=== PATIENT | male | born 1935 | race Caucasian/White ===

== ENCOUNTER 2022-08-11 10:41 | Outpatient (CLI) | payer MEDICARE, SELFPAY ==
--- NOTE | 2022-08-11 11:10 | XR_ITS ---
WS: [id number] EXAMINATION: XR knee RT 1-2V 05299 REASON FOR EXAM: PAIN IN R KNEE/UNSPECIFIED OSTEOARTHRITIS COMPARISON: None available. ORDER DATE: 08/11/2022 11:15 AM FINDINGS: There is no sign of any acute osseous or articular abnormality. There is a prominent anterior margina l osteophyte mid anterior tibial plateau. A small suprapatellar joint effusion is indicated. Cannot e xclude posterior effusion. There are no specific soft tissue abnormalities. XR/XR knee RT 1-2V [id number] IMPRESSION: Osteoarthritic changes noted with effusion.
== END 2022-08-11 10:42 | disposition home or self-care (01) ==
PROVIDERS: PCP Nurse Practitioner Family; Visit Provider Nurse Practitioner Family
DX: M25.561 Pain in right knee (principal); M17.11 Unilateral primary osteoarthritis, right knee; M25.461 Effusion, right knee
CPT/HCPCS: 73560

== ENCOUNTER 2023-11-02 21:26 | Inpatient (IN) | payer MEDICARE, SELFPAY ==
[2023-11-02 21:44] VITALS: BP 164/88; PULSE 85; RESP 18; TEMP 37.3; O2SAT 95; BMI 33.3
--- NOTE | 2023-11-02 21:55 | XRR_ITS ---
PROCEDURE INFORMATION: Exam: XR Chest Exam date and time: 11/02/2023 9:59 PM Age: 88 years old Clinical indication: Shortness of breath; Additional info: Weakness TECHNIQUE: Imaging protocol: Radiologic exam of the chest. Views: 1 view. COMPARISON: No relevant prior studies available. FINDINGS: Lungs: Lungs are hypoaerated. There is some asymmetry with coarsening of interstitial markings at left lung base not further characterized without comparison imaging available. Pleural spaces: Unremarkable. No pleural effusion. No pneumothorax. Heart/Mediastinum: Unremarkable. No cardiomegaly. Bones/joints: Unremarkable. XR/XR chest 1V portable [id number] IMPRESSION: There is some asymmetry in interstitial lung markings at the left lung base of uncertain significance without comparison imaging available. This could represent underlying chronic interstitial fibrosis but cannot exclude acute process. Recommend radiographic follow-up. PA and lateral chest radiographs with improved inspiratory effort for could be helpful.
--- NOTE | 2023-11-02 21:56 | ECG_ITS ---
[facility] Test Date: 2023-11-02 Pat Name: Bobby Way Department: Room: Gender: Male Hospital Staff Pharmacist: : [id number] Requested By: Chay Vega Order Number: [id number] Chase MD: Agustin Byrnes M.D. Measurements Intervals [place] Rate: 88 P: 33 MO: 220 QRS: -14 QRSD: 83 T: 55 QT: 350 QTc: 425 Interpretive Statements SINUS RHYTHM WITH FIRST DEGREE AV BLOCK POSSIBLE RIGHT VENTRICULAR CONDUCTION DELAY [RSR (QR) IN V1/V2] POSSIBLE ANTERIOR MYOCARDIAL INFARCTION , PROBABLY OLD [30 ms Q WAVE IN V3/V4, OR R < 0.2 mV IN V4] No previous ECG available for comparison Electronically Signed On 11-03-2023 10:07:06 [employer] by Agustin Byrnes M.D. [id number]
[2023-11-02 22:19] LABS: Basophils # 0.1 10^3/uL (0.0-0.1); Basophils % 0.5 %; Eosinophils # 0.5 10^3/uL (0.0-0.8); Eosinophils % 4.4 %; Hematocrit 48.4 % (37-53); Lymphocytes # 3.1 10^3/uL (0.8-4.8); Lymphocytes % 29.5 %; Mean Corpuscular HGB Conc 32.4 g/dL (30-55); Mean Corpuscular Hemoglobin 30.5 pg (27-33); Mean Corpuscular Volume 94.2 fl (82-101); Mean Platelet Volume 10.2 fL (7.4-10.4); Monocytes % 9.5 %; Neutrophils # 5.87 10^3/uL (1.8-7.7); Neutrophils % 55.7 %; Nucleated Red Blood Cells % 0 %; Platelet Count 295 10^3/cmm (157-399); Red Blood Count 5.14 10^6/uL (3.85-5.65); Red Cell Distribution Width 13.8 % (12.1-15.1); White Blood Count 10.52 10^3/uL (3.29-11.43)
--- NOTE | 2023-11-02 22:20 | W.ED.WEAKNES ---
HPI - Weakness General: Chief complaint: Weakness Stated complaint: weakness,fever Time Seen by Provider: 11/02/23 21:55 History of Present Illness: Patient presents to the ER with complaints of being weakness and just not feeling good. Patient says he is only had this for about 2 days. But upon talking to the family he is been progressively going downhill over the last several months to the point that he is fallen multiple times. 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 Patient's only medicine is a thyroid medicine and a pill to help and stop eating as much. The last time the patient was sick was decades ago when he had pneumonia. Patient denies any pain currently other than just not feeling good overall. He will not specify how he does not feel good. Review of Systems General: Reports: 10 or more systems reviewed and unremarkable except in HPI and below Physical Exam Const: COMMON NORMALS: no acute distress, average body habitus, patient oriented x3, no limitations, healthy appearing, alert and well nourished HENMT: COMMON NORMALS: normocephalic, atraumatic, hearing grossly normal bilaterally, external ears normal, EAC's normal, Normal external nose present, moist oral mucous membranes and oropharynx normal HEAD & SCALP: normocephalic and atraumatic NOSE: Normal external nose present EXTERNAL EAR: Yes external ears normal EXTERNAL AUDITORY CANAL: EAC's normal Eye: COMMON NORMALS: Equal, round and reactive pupils present, EOMs intact bilaterally, conjunctivae normal and no scleral icterus CONJUNCTIVA: Yes conjunctivae normal PUPIL: Yes Equal, round and reactive pupils present Neck/C-Spine: COMMON NORMALS: full ROM, no lymphadenopathy, supple, no meningeal signs and no JVD Chest: COMMONS NORMALS: normal inspection of the chest and normal palpation of entire chest wall Resp: COMMON NORMALS: normal respiratory effort, No retractions, No use of accessory muscles and clear to auscultation bilaterally AUSCULTATION: clear to auscultation bilaterally Cardio: COMMON NORMALS: no JVD, regular rate, regular rhythm, S1 normal heart sound present, S2 normal heart sound present, No gallops present (Cardio), No clicks present (Cardio), No murmurs present (Cardio) and No rub (Cardio) RATE: regular rate RHYTHM: regular rhythm HEART SOUNDS: S1 normal heart sound present and S2 normal heart sound present GI: COMMON NORMALS: Normal to inspection, nondistended, normoactive bowel sounds present, Soft to palpation, non-tender, No hepatosplenomegaly present and no masses PALPATION: Yes Soft to palpation and Yes No hepatosplenomegaly present Neuro: COMMON NORMALS: patient oriented x3 SENSORIUM/ORIENTATION: Yes alert MENINGEAL SIGNS: Yes no meningeal signs Course Vital Signs: Vital signs: Vital Signs Temperature 98.2 F 11/03/23 01:28 Pulse Rate 87 11/02/23 23:54 Respiratory Rate 18 11/02/23 21:44 Blood Pressure 143/63 11/03/23 01:06 Pulse Oximetry 95 11/02/23 23:54 Oxygen Delivery Me thod Room Air 11/02/23 21:44 MDM - Weakness Medical Decision Making Patient had lab workup included blood and urine influenza COVID swabs chest x-ray and CT of the abdomen pelvis and chest. EKGs and serial troponins. All of this was essentially negative there was some asymmetry within markings of the chest x-ray sweats when we get the chest abdomen pelvis. During his CT scan he kept moving his legs and would not be able to lay still so we gave him 1 mg Ativan which caused him to be delirious continue to crawl out of bed, keeps telling the and staff that he wants to take a pair scissors to cut her close off, and tries to hook them up to his IV. Patient was then given 5 mg of Haldol which calmed him down a little bit. Patient required a sitter. This patient was discussed with Dr. Cavazos who agreed to place the patient in observation secondary to adverse reaction to medicine. Differential Diagnosis Unlikely acute myocardial infarction, anemia, hypoglycemia, hypothyroidism, rhabdomyolysis, sepsis or dehydration Medical Records I reviewed the patient's medical records. Lab Data I reviewed the patient's lab results. 11/02/23 22:08 11/02/23 22:08 Radiology Impressions Chest X-Ray 11/02/23 21:55 IMPRESSION: There is some asymmetry in interstitial lung markings at the left lung base of uncertain significance without comparison imaging available. This could represent underlying chronic interstitial fibrosis but cannot exclude acute process. Recommend radiographic follow-up. PA and lateral chest radiographs with improved inspiratory effort for could be helpful. Chest/Abdomen/Pelvis CT 11/02/23 23:08 IMPRESSION: 1. Fibrotic interstitial pulmonary changes. 2. No definite focal pneumonia seen. IMPRESSION: Negative for acute abdominopelvic pathology. Laboratory Results WBC 10.52 10^3/uL (3.29-11.43) 11/02/23 22:08 RBC 5.14 10^6/uL (3.85-5.65) 11/02/23 22:08 Hgb 15.70 g/dL (11.27-16.99) 11/02/23 22:08 Hct 48.4 % (37-53) 11/02/23 22:08 MCV 94.2 fl (82-101) 11/02/23 22:08 MCH 30.5 pg (27-33) 11/02/23 22:08 MCHC 32.4 g/dL (30-55) 11/02/23 22:08 RDW 13.8 % (12.1-15.1) 11/02/23 22:08 Plt Count 295 10^3/cmm (157-399) 11/02/23 22:08 MPV 10.2 fL (7.4-10.4) 11/02/23 22:08 Neut % (Auto) 55.7 % 11/02/23 22:08 Lymph % (Auto) 29.5 % 11/02/23 22:08 [place] % (Auto) 9.5 % 11/02/23 22:08 Eos % (Auto) 4.4 % 11/02/23 22:08 Baso % (Auto) 0.5 % 11/02/23 22:08 Neut # (Auto) 5.87 10^3/uL (1.8-7.7) 11/02/23 22:08 Lymph # (Auto) 3.1 10^3/uL (0.8-4.8) 11/02/23 22:08 [place] # (Auto) 1.0 10^3/uL (0.2-0.9) H 11/02/23 22:08 Eos # (Auto) 0.5 10^3/uL (0.0-0.8) 11/02/23 22:08 Baso # (Auto) 0.1 10^3/uL (0.0-0.1) 11/02/23 22:08 Nucleated RBC % (auto) 0 % 11/02/23 22:08 Nucleated RBCs # 0.0 /100WBC 11/02/23 22:08 Sodium 137 mmol/L (136-145) 11/02/23 22:08 Potassium 4.6 mmol/L (3.5-5.1) 11/02/23 22:08 Chloride 100 mmol/L (98-107) 11/02/23 22:08 Carbon Dioxide 25 mmol/L (22-29) 11/02/23 22:08 Anion Gap 16.6 (5-19) 11/02/23 22:08 BUN 10 mg/dL (8-23) 11/02/23 22:08 Creatinine 0.8 mg/dL (0.7-1.2) 11/02/23 22:08 GFR Calculation Not Reportable 11/02/23 22:08 Glucose 104 mg/dL (65-115) 11/02/23 22:08 Calculated Osmolality 283 mOsm/kg (285-295) L 11/02/23 22:08 Calcium 9.1 mg/dL (8.5-10.5) 11/02/23 22:08 Magnesium 1.9 mg/dL (1.7-2.3) 11/02/23 22:08 Total Bilirubin 0.5 mg/dL (0.15-1.2) 11/02/23 22:08 AST 19 U/L (0-40) 11/02/23 22:08 ALT 12 U/L (0-41) 11/02/23 22:08 Alkaline Phosphatase 109 U/L (40-130) 11/02/23 22:08 Troponin T Baseline 20 ng/L (0-15) H 11/02/23 22:08 Troponin T 120 Minute 18.48 ng/L (0-15) H 11/02/23 00:35 Delta Troponin T 1.52 ABS# (0-10) 11/02/23 00:35 Total Protein 7.5 g/dL (6.6-8.7) 11/02/23 22:08 Albumin 4.2 g/dL (3.5-5.2) 11/02/23 22:08 Globulin 3.3 g/dL (1.3-4.6) 11/02/23 22:08 TSH 1.70 uIU/mL (0.27-4.20) 11/02/23 22:07 Urine Color Yellow (Yellow) 11/02/23 22:30 Urine Appearance Clear (CLEAR) 11/02/23 22:30 Urine pH 5 (5-7) 11/02/23 22:30 Ur Specific [place] 1.015 (1.005-1.030) 11/02/23 22:30 Urine Protein Neg (Negative) 11/02/23 22:30 Urine Glucose (UA) Norm (Normal) 11/02/23 22:30 Urine Ketones Negative (Negative) 11/02/23 22:30 Urine Blood 2+ (Negative) H 11/02/23 22:30 Urine Nitrate Negative (Negative) 11/02/23 22:30 Urine Bilirubin 1+ (Negative) H 11/02/23 22:30 Urine Urobilinogen Norm mg/dL (Negative) 11/02/23 22:30 Ur Leukocyte Esterase Negative (Negative) 11/02/23 22:30 Urine RBC 5-10 /hpf (0-2) H 11/02/23 22:30 Urine WBC 0-4 /hpf (0-5) H 11/02/23 22:30 Ur Squamous Epith Cells 0-4 /hpf (0-5) H 11/02/23 22:30 Amorphous Sediment Not Reportable 11/02/23 22:30 Urine Bacteria Trace /hpf (NONE) 11/02/23 22:30 Urine Mucus Trace /hpf 11/02/23 22:30 Influenza Type A Ag negative (Negative) 11/03/23 00:45 Influenza Type B Ag negative (Negative) 11/03/23 00:45 SARS-CoV-2 Ag (Rapid) negative (Negative) 11/03/23 00:45 All radiology interpretation(s) finalized by discharge EKG Data EKG 1: I personally reviewed and interpreted this EKG as follows: EKG interpretation date: 11/02/23 EKG interpretation time: :24 Prior EKG tracings: not available for review Interpretation: Ventricular rate 88 bpm, [place] interval 220, QRS duration 83, QTc of 396, first-degree AV block with sinus rhythm EKG 2: I personally reviewed and interpreted this EKG as follows: EKG interpretation date: 11/03/23 EKG interpretation time: 00:58 Prior EKG tracings: available for review Interpretation: Ventricular rate 93 bpm, [place] interval 210, QRS duration 102, QTc of 383, sinus rhythm with first-degree AV block Discharge Plan Discharge Patient Disposition: Placed in Observation Clinical Impression: Generalized weakness Medication adverse effect Qualifiers: Encounter type: initial encounter Qualified Code(s): T50.905A - Adverse effect of unspecified drugs, medicaments and biological substances, initial encounter Coding Level of Care Code ED Meat Team Lead for Adrianna Baird
[2023-11-02 22:35] LABS: Troponin(5th) Baseline 20 ng/L (0-15)
[2023-11-02 22:39] LABS: Alanine Aminotransferase 12 U/L (0-41); Albumin Level 4.2 g/dL (3.5-5.2); Alkaline Phosphatase 109 U/L (40-130); Anion Gap 16.6 (5-19); Aspartate Amino Transferase 19 U/L (0-40); Blood Urea Nitrogen 10 mg/dL (8-23); Calcium 9.1 mg/dL (8.5-10.5); Carbon Dioxide 25 mmol/L (22-29); Chloride 100 mmol/L (98-107); Creatinine Clr Calc Pharmacy 71.9688; Globulin 3.3 g/dL (1.3-4.6); Glucose 104 mg/dL (65-115); Magnesium 1.9 mg/dL (1.7-2.3); Osmolality Calculated 283 mOsm/kg (285-295); Potassium 4.6 mmol/L (3.5-5.1); Sodium 137 mmol/L (136-145); Total Bilirubin 0.5 mg/dL (0.15-1.2); Total Protein 7.5 g/dL (6.6-8.7)
[2023-11-02 22:50] LABS: Add Urine Microscopic? YES; Bacteria Urine TRACE /hpf; Bilirubin Urine 1+ (Negative); Blood Urine 2+ (Negative); Glucose Urine UA Norm (Normal); Ketones Urine Negative (Negative); Leukocyte Esterase Urine Negative (Negative); Mucus Urine TRACE /hpf; Nitrate Urine Negative (Negative); Protein Urine Neg (Negative); Specific Gravity, Urine 1.015 (1.005-1.030); Squamous Epithelial Cell Urine 0-4 /hpf (0-5); Urine Appearance Clear (CLEAR); Urine Color Yellow (Yellow); Urobilinogen Urine Norm (Negative); WBC Urine 0-4 /hpf (0-5); pH Urine 5 (5-7)
--- NOTE | 2023-11-02 23:08 | CTR_ITS ---
PROCEDURE INFORMATION: Exam: CT Chest With Contrast; Diagnostic Exam date and time: 11/02/2023 11:47 PM Age: 88 years old Clinical indication: Other: Weak; Additional info: Weakness fever abnormal cxr TECHNIQUE: Imaging protocol: Diagnostic computed tomography of the chest with contrast. Radiation optimization: All CT scans at this facility use at least one of these dose optimization techniques: automated exposure control; mA and/or kV adjustment per patient size (includes targeted exams where dose is matched to clinical indication); or iterative reconstruction. Contrast material: OMNI 350; Contrast volume: 100 ml; Contrast route: INTRAVENOUS (IV); COMPARISON: CR (CHEST, ) 11/02/2023 9:59 PM RADIATION DOSE METRICS: Total DLP (mGy-cm): 1673 FINDINGS: Lungs: Diffuse reticular changes of the pulmonary interstitium. Reduced lung volumes. Peripheral honeycombing in costophrenic sulci. No definite acute consolidation. Negative for endobronchial obstruction. Pleural spaces: Unremarkable. No pneumothorax. No pleural effusion. Heart: Unremarkable. No cardiomegaly. No pericardial effusion. Lymph nodes: Unremarkable. No enlarged lymph nodes. Vasculature: Unremarkable. No aortic aneurysm. Bones/joints: Unremarkable. No acute fracture. Soft tissues: Unremarkable. PROCEDURE INFORMATION: Exam: CT Abdomen And Pelvis With Contrast Exam date and time: 11/02/2023 11:47 PM Age: 88 years old Clinical indication: Other: Weak; Additional info: Weakness fever abnormal cxr TECHNIQUE: Imaging protocol: Computed tomography of the abdomen and pelvis with contrast. Radiation optimization: All CT scans at this facility use at least one of these dose optimization techniques: automated exposure control; mA and/or kV adjustment per patient size (includes targeted exams where dose is matched to clinical indication); or iterative reconstruction. Contrast material: OMNI 350; Contrast volume: 100 ml; Contrast route: INTRAVENOUS (IV); COMPARISON: CR (CHEST, ) 11/02/2023 9:59 PM RADIATION DOSE METRICS: Total DLP (mGy-cm): 1673 FINDINGS: Liver: Normal. No mass. Gallbladder and bile ducts: Normal. No calcified stones. No ductal dilation. Pancreas: Normal. No ductal dilation. Spleen: Normal. No splenomegaly. Adrenal glands: Normal. No mass. Kidneys and ureters: Normal. No hydronephrosis. Stomach and bowel: Unremarkable. No obstruction. No mucosal thickening. Appendix: Normal appendix. Intraperitoneal space: Unremarkable. No free air. No significant fluid collection. Vasculature: Unremarkable. No abdominal aortic aneurysm. Lymph nodes: Unremarkable. No enlarged lymph nodes. Urinary bladder: Unremarkable as visualized. Reproductive: Unremarkable as visualized. Bones/joints: Bilateral L4 pars defects. Grade 1 L4-L5 spondylolisthesis. Negative for acute fracture. Soft tissues: Unremarkable. CT/CT chest abdpel w/*[id number] IMPRESSION: 1. Fibrotic interstitial pulmonary changes. 2. No definite focal pneumonia seen. IMPRESSION: Negative for acute abdominopelvic pathology.
[2023-11-02] MEDS: LORazepam 2 mg/mL INJ 10 mL MDV 1 MG IVP (23:31)
[2023-11-02 23:54] VITALS: BP 133/88; PULSE 87; O2SAT 95
[2023-11-02] MEDS: iohexol 350 mg/mL 500 mL Btl (per mL) IV (23:57)
[2023-11-03 01:05] LABS: Troponin 5 2HR 18.48 ng/L (0-15)
[2023-11-03 01:06] VITALS: BP 143/63
[2023-11-03 01:13] LABS: Influenza A by IFA negative (Negative); Influenza B by IFA negative (Negative); SARS Covid-2 Antigen negative (Negative)
[2023-11-03 01:15] LABS: Troponin 5 2HR Delta 1.52 ABS# (0-10)
[2023-11-03 01:28] VITALS: TEMP 36.8
[2023-11-03] MEDS: haloperidol inj 5 mg/mL INJ 1 mL IVP (01:34)
[2023-11-03 02:54] VITALS: BP 115/80; PULSE 78; RESP 18; O2SAT 93
--- NOTE | 2023-11-03 02:54 | P.HP_ITS ---
Providers/Chief Complaint 2 Admitting Physician: Herson Cavazos Primary Care Provider: Nicole Prabhakar NP Chief Complaint: weakness,fever History of Present Illness Bobby Way is a 88 year old male With history of hypothyroidism, BPH, came into ER initially due to not feeling well, generalized weakness of 2 days duration, will reportedly without additional specific symptoms. He was afebrile, minimally hypertensive, without leukocytosis, with essentially unremarkable CBC and CMP, minimal abnormality of baseline troponin 20, normal TSH, 5-10 RBC in urine, otherwise UA not suggestive of UTI, negative rapid influenza and COVID screen panels. On chest x-ray there was some finding of asymmetry of interstitial lung markings at left lung base. Chest CT was going to be obtained although he could not tolerate it well, was given 1 mg of Ativan. After Ativan, however, with confusion, bizarre behavior and statements, asking for scissors to cut off his 's clothes. Chest CT with some fibrotic interstitial pulmonary changes, the rest of CT chest abdomen pelvis unremarkable. He was given Haldol, request made for observation in the hospital due to acute encephalopathy. He is currently resting. Review of Systems 2 General: Reports: ROS unobtainable due to mental status Medications/Allergies Allergies Allergy/AdvReac Type Severity Reaction Status Date / Time meperidine [From Demerol] Allergy ADR-Shakine Verified 11/02/23 21:51 ss PFSH Acute 2 PFSH: Medical History Hypothyroidism BPH (benign prostatic hyperplasia) Vitals/I&O/Wt Last Vital Signs Temp 98.2 F 11/03/23 01:28 Pulse 87 11/02/23 23:54 Resp 18 11/02/23 21:44 BP 143/63 11/03/23 01:06 Pulse Ox 95 11/02/23 23:54 O2 Del Method Room Air 11/03/23 02:17 Weight last 48 hrs Weight 96.026 kg Weight 96.388 kg Physical Exam 2 Const: COMMON NORMALS: negative for alert GENERAL APPEARANCE: not cooperative ORIENTATION/CONSCIOUSNESS: not awake HENMT: COMMON NORMALS: oropharynx normal Eye: OTHER: Pupils equal Neck/C-Spine: COMMON NORMALS: no JVD Resp: COMMON NORMALS: normal respiratory effort and clear to auscultation bilaterally AUSCULTATION: clear to auscultation bilaterally Cardio: COMMON NORMALS: no JVD, regular rhythm, S1 normal heart sound present, S2 normal heart sound present and No murmurs present (Cardio) RHYTHM: regular rhythm HEART SOUNDS: S1 normal heart sound present and S2 normal heart sound present GI: COMMON NORMALS: Normal to inspection, nondistended, normoactive bowel sounds present, Soft to palpation and non-tender PALPATION: Yes Soft to palpation Extremity: COMMON NORMALS: no joint enlargement and no pedal edema OTHER: No rigidity. Neuro: COMMON NORMALS: patient oriented x3 and moves all extremities S ENSORIUM/ORIENTATION: Yes alert Skin: COMMON NORMALS: no rashes or lesions noted GENERAL SKIN EXAM: no rashes or lesions noted Data 11/02/23 22:08 11/02/23 22:08 A&P Assessment and plan (1) Acute encephalopathy: Acute encephalopathy with delirium, bizarre ideation and behavior after receiving Ativan. Reviewed vitals, CBC, CMP, TSH, UA, rapid influenza, rapid COVID, EKG, CT chest abdomen pelvis, chest x-ray, ER note, discussed with ER provider. One-to-one sitter has been requested, he received a dose of Haldol. He is currently resting, unable to provide history, history had to be obtained from ER staff. Family has left. Monitor for Ativan to wear off, reorient, otherwise there is no suggestion of acute infectious process, not likely additional contribution from home medications, at home he is on levothyroxine and Flomax. (2) Medication adverse effect: Acute encephalopathy, possibly toxic after receiving Ativan. Qualifiers: Encounter type: initial encounter Qualified Code(s): T50.905A - Adverse effect of unspecified drugs, medicaments and biological substances, initial encounter (3) Generalized weakness: Originally came in due to generalized weakness, chest x-ray showed some asymmetric interstitial lung markings at left lung base, uncertain significance, possible chronic superficial fibrosis. CT chest was attempted but she developed acute encephalopathy after receiving Ativan after initially not tolerating the study, is found to have fibrotic and social pulmonary changes, possibly as possible for his fatigue, malaise, will benefit from follow-up with PFT, pulmonology. No other definite acute abnormality. Workup as above otherwise not suggestive of acute infection, he is afebrile, no leukocytosis, rapid influenza conducted COVID-19 were negative. Plan Hypothyroidism: Normally on levothyroxine. Continue. BPH: Normally on tamsulosin. Continue. Requesting to confirm home medications, please reconcile once available. Attestations 2 Medical Necessity Statement*: Place in observation for additional assessment and management of acute encephalopathy with delirium in an elderly gentleman. Diagnoses Acute encephalopathy G93.40 Medication adverse effect T50.905A Encounter type: initial encounter Generalized weakness R53.1
--- NOTE | 2023-11-03 02:57 | PC.NURSE ---
Unable to complete admission assessment or med rec. Patient AMS.
--- NOTE | 2023-11-03 03:56 | ECG_ITS ---
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 Measurements Intervals [place] Rate: 93 P: 54 ID: [id number] QRS: -44 QRSD: 102 T: 62 QT: 332 QTc: 414 Interpretive Statements SINUS RHYTHM WITH FIRST DEGREE AV BLOCK LEFT AXIS DEVIATION [QRS AXIS < -30] LOW QRS VOLTAGE IN PRECORDIAL LEADS [QRS DEFLECTION < 1.0 mV IN CHEST LEADS] INCOMPLETE RIGHT BUNDLE BRANCH BLOCK [90+ ms QRS DURATION, TERMINAL R IN V1/V2, 40+ ms S IN I/aVL/V4/V5/V6] POSSIBLE ANTERIOR MYOCARDIAL INFARCTION , PROBABLY OLD [30 ms Q WAVE IN V3/V4, OR R < 0.2 mV IN V4] Compared to ECG 11/02/2023 22:24:30 Left-axis deviation now present Low QRS voltage now present Incomplete right bundle-branch block now present Myocardial infarct finding still present Electronically Signed On 11-03-2023 10:08:36 [employer] by Agustin Byrens M.D. [id number]
[2023-11-03] MEDS: levothyroxine 25 mcg Tablet PO (09:14)
[2023-11-03] MEDS: tamsulosin 0.4 mg Capsule 0.400000000000000022 MG PO (09:14)
--- NOTE | 2023-11-03 09:14 | PC.PHAR ---
pts february verified pts medications-states the pt has been taking tylenol up to bid for the last few months-pts states the only medications the pt takes is what is entered
--- NOTE | 2023-11-03 10:37 | W.PM.EVENTAC ---
Event Note Event Note: Patient is still confused Try to get out of bed I do believe he is retaining urine He was asking to use urinal frequently Will place [place] catheter Metabolic encephalopathy related to use of Ativan in the ER CBC BMP unremarkable he is moving his extremities no signs of stroke Nonfocal neuroexam Influenza panel negative CT scan chest and pelvis unremarkable
[2023-11-03 11:40] VITALS: BP 148/81; PULSE 76; RESP 16; TEMP 36.9; O2SAT 96
[2023-11-03 14:13] LABS: Troponin 5 6HR 23.75 ng/L (0-15)
[2023-11-03 14:16] LABS: Troponin 5 6HR Delta 3.75 ng/L (0-12)
[2023-11-03 16:00] VITALS: BP 108/69; PULSE 70; RESP 16; TEMP 37; O2SAT 94
[2023-11-03 20:00] VITALS: BP 101/56; PULSE 79; RESP 18; TEMP 37.1; O2SAT 95
[2023-11-04] VITALS (7 sets, daily range): BP systolic 134–163; BP diastolic 67–97; PULSE 63–87; RESP 17–19; TEMP 36.3–37.3; O2SAT 93–95
[2023-11-04 04:30] LABS: Basophils # 0.1 10^3/uL (0.0-0.1); Basophils % 0.4 %; Eosinophils # 0.2 10^3/uL (0.0-0.8); Eosinophils % 1.3 %; Hematocrit 43.9 % (37-53); Lymphocytes # 2.8 10^3/uL (0.8-4.8); Lymphocytes % 23.5 %; Mean Corpuscular HGB Conc 33.5 g/dL (30-55); Mean Corpuscular Hemoglobin 30.7 pg (27-33); Mean Corpuscular Volume 91.6 fl (82-101); Mean Platelet Volume 10.7 fL (7.4-10.4); Monocytes # 1.6 10^3/uL (0.2-0.9); Monocytes % 13.3 %; Neutrophils % 61.1 %; Nucleated Red Blood Cells % 0 %; Platelet Count 257 10^3/cmm (157-399); Red Blood Count 4.79 10^6/uL (3.85-5.65); Red Cell Distribution Width 13.7 % (12.1-15.1); White Blood Count 12.11 10^3/uL (3.29-11.43)
[2023-11-04 04:45] LABS: Alanine Aminotransferase 14 U/L (0-41); Albumin Level 3.4 g/dL (3.5-5.2); Alkaline Phosphatase 91 U/L (40-130); Blood Urea Nitrogen 12 mg/dL (8-23); Calcium 8.3 mg/dL (8.5-10.5); Carbon Dioxide 22 mmol/L (22-29); Chloride 94 mmol/L (98-107); Creatinine Clr Calc Pharmacy 71.8356; Globulin 3.6 g/dL (1.3-4.6); Glucose 94 mg/dL (65-115); Osmolality Calculated 268 mOsm/kg (285-295); Sodium 129 mmol/L (136-145); Total Bilirubin 0.8 mg/dL (0.15-1.2)
[2023-11-04 04:46] LABS: Anion Gap 17.8 (5-19); Aspartate Amino Transferase 39 U/L (0-40); Potassium 4.8 mmol/L (3.5-5.1)
[2023-11-04] MEDS: tamsulosin 0.4 mg Capsule 0.400000000000000022 MG PO (06:09)
[2023-11-04] MEDS: levothyroxine 25 mcg Tablet PO (06:09)
--- NOTE | 2023-11-04 09:53 | P.PN_ITS ---
Subjective 2 Subjective: Patient was able to try to get out of bed Keeping his eyes closed Able to answer few simple questions Oriented to himself Vitals/I&O/Wt Last Vital Signs Temp 97.4 F L 11/04/23 09:08 Pulse 72 11/04/23 09:08 Resp 18 11/04/23 09:08 BP 143/67 11/04/23 09:08 Pulse Ox 93 11/04/23 09:08 O2 Del Method Room Air 11/04/23 09:08 11/03/23 11/04/23 11/04/23 22:59 06:59 14:59 Intake Total 120 / 120 360 / 360 Output Total 550 / 550 150 / 700 200 / 200 Balance -430 / -430 -150 / -580 160 / 160 Weight last 48 hrs Weight 96.388 kg Weight 96.026 kg Weight 96.388 kg Physical Exam 2 Narrative: Oriented to himself Confused Moving his extremities Looks dehydrated S1, S2 Currently on room air H[place] catheter in place Abdomen soft Urinary Catheter Management: [place]: Cath Placed During This Visit: yes Reason for Continuing Indwelling Catheter: Acute Urinary Retention or Obstruction Urinary Catheter Date of Insertion: 11/03/23 Urinary Catheter Time of Insertion: 10:00 Data 11/04/23 03:06 11/04/23 03:06 A&P Assessment and plan (1) Medication adverse effect: Qualifiers: Encounter type: initial encounter Qualified Code(s): T50.905A - Adverse effect of unspecified drugs, medicaments and biological substances, initial encounter (2) Acute encephalopathy: (3) Generalized weakness: (4) Drug overdose of undetermined intent: (5) Acute hyponatremia: Plan Hyponatremia: Acute Dehydration Start IV fluids Metabolic encephalopathy after getting Ativan Check drug screen Mild leukocytosis noted Normal TSH, check B12 level Full code Not ready to be discharged Continue levothyroxine Started IV fluids today Attestations 2 Medical Necessity Statement*: Continue medical management Change status to inpatient crossing 2 midnights Diagnoses Medication adverse effect T50.905A Encounter type: initial encounter Acute encephalopathy G93.40 Generalized weakness R53.1 Drug overdose of undetermined intent T50.904A Acute hyponatremia E87.1
[2023-11-04 10:25] LABS: Amphetamines Screen Urine Negative (Negative); Barbiturates Screen Urine Negative (Negative); Benzodiazepines Screen Urine Positive (Negative); Cocaine Screen Urine Negative (Negative); Opiate Screen Urine Negative (Negative); PCP Screen Urine Negative (Negative); THC Screen Urine Negative (Negative)
[2023-11-04] MEDS: sodium chloride 0.9% 1,000 ML 75 ML IV ×2 (10:25→23:24)
[2023-11-04 10:50] LABS: Vitamin B12 166 pg/mL (232-1245)
[2023-11-05 03:54] VITALS: BP 168/83; PULSE 76; TEMP 36.4; O2SAT 94
[2023-11-05 05:46] LABS: Basophils # 0.1 10^3/uL (0.0-0.1); Basophils % 0.6 %; Eosinophils # 0.3 10^3/uL (0.0-0.8); Eosinophils % 3.6 %; Hematocrit 41.2 % (37-53); Mean Corpuscular HGB Conc 32.5 g/dL (30-55); Mean Corpuscular Hemoglobin 30.7 pg (27-33); Mean Corpuscular Volume 94.3 fl (82-101); Mean Platelet Volume 10.5 fL (7.4-10.4); Monocytes # 1.4 10^3/uL (0.2-0.9); Monocytes % 17.4 %; Neutrophils # 4.32 10^3/uL (1.8-7.7); Neutrophils % 53.2 %; Nucleated Red Blood Cells % 0 %; Platelet Count 215 10^3/cmm (157-399); Red Blood Count 4.37 10^6/uL (3.85-5.65); Red Cell Distribution Width 13.6 % (12.1-15.1); White Blood Count 8.12 10^3/uL (3.29-11.43)
[2023-11-05 06:01] LABS: Alanine Aminotransferase 20 U/L (0-41); Albumin Level 3.3 g/dL (3.5-5.2); Alkaline Phosphatase 84 U/L (40-130); Anion Gap 12.5 (5-19); Aspartate Amino Transferase 53 U/L (0-40); Blood Urea Nitrogen 13 mg/dL (8-23); Calcium 7.8 mg/dL (8.5-10.5); Carbon Dioxide 23 mmol/L (22-29); Chloride 95 mmol/L (98-107); Creatinine Clr Calc Pharmacy 72.0524; Globulin 2.9 g/dL (1.3-4.6); Glucose 88 mg/dL (65-115); Osmolality Calculated 262 mOsm/kg (285-295); Potassium 4.5 mmol/L (3.5-5.1); Sodium 126 mmol/L (136-145); Total Bilirubin 0.6 mg/dL (0.15-1.2); Total Protein 6.2 g/dL (6.6-8.7)
[2023-11-05 08:00] VITALS: BP 158/68; PULSE 71; RESP 18; TEMP 36.4; O2SAT 93
--- NOTE | 2023-11-05 11:12 | PC.CHAP ---
Pastoral Care Encounter/Spiritual Assessment Type of Contact [] Declined tax assessor visit [] Patient/Family/Request visit [] Outpatient visit [] Follow-up visit [] Physician referral [] Code/Alert [x] Routine visit [] Staff referral [] Actively dying [] Patient sleeping [] Family support [] [] Out of room [] Palliative care [] [] Receiving care in room [] Pre-surgical visit [] Trauma [] Long length of stay [] ICU visit [] Other: Relational/Emotional Strength [] Patient feels connected with others/family/visitors/staff [] Distress [] Loneliness/isolation [] Abandonment Spirituality of Patient [x] Person of Tena [] Attends Alevism of their Tena [x] Believes in Prayer [] Reads Bible or Confucianist materials [] There are Spiritual issues to be addressed Building [employer] Ret[employer]ician Interventions [x] Prayer [] Active listening [] Non-anxious presence [] Spiritual/emotional support [] Crisis/trauma care [] Spiritual counseling [] Bereavement support [] Provided bereavement packet [] Provided Bible/devotional materials [] Provided toy/stuffed animal, coloring book to patient or family member [] Provided Communion [] Anointing/[place] [] Salvation [x] Completed spiritual assessment [] Other: Impact on Illness or Injury [] Angry [] Fearful [] Anxious [] Often cries [] Exhaustion [] Unable to work [] Unable to attend congregation [] Unable to walk/stand [] Unable to read [] Unable to drive [] Unable to eat/drink [] Unable to sleep [] Unable to be with family [] Patient intubated [] Other: Summary 5 min Time spent with patient
--- NOTE | 2023-11-05 11:48 | P.PN_ITS ---
Subjective 2 Subjective: Patient has failed to response to verbal commands however saying yes and no in response to noxious stimuli, keeping his eyes closed I am requesting MRI head Low B12, will replenish via intramuscular injection Son at the bedside Patient is full code Son is stating that Mr. Way has not been managing his finances, his does, he would not drive Vitals/I&O/Wt Last Vital Signs Temp 97.6 F 11/05/23 08:00 Pulse 71 11/05/23 08:00 Resp 18 11/05/23 08:00 BP 158/68 11/05/23 08:00 Pulse Ox 93 11/05/23 08:00 O2 Del Method Room Air 11/05/23 08:00 11/04/23 11/05/23 11/05/23 22:59 06:59 14:59 Intake Total 480 / 960 973.75 / 1933.75 Output Total 400 / 600 500 / 1100 Balance 80 / 360 473.75 / 833.75 Weight last 48 hrs Weight 96.615 kg Weight 96.388 kg Physical Exam 2 Narrative: Moving his extremities not purposefully Keeping eyes closed Simple answers like yes and no Keeping his eyes very tight and close Dehydrated S1, S2 Currently on room air [place] catheter with dilute urine Urinary Catheter Management: [place]: Cath Placed During This Visit: yes Reason for Continuing Indwelling Catheter: Required Immobilization for Trauma or Surgery or Anesthesia Urinary Catheter Date of Insertion: 11/03/23 Urinary Catheter Time of Insertion: 10:00 Data 11/05/23 04:35 11/05/23 04:35 A&P Assessment and plan (1) Medication adverse effect: Qualifiers: Encounter type: initial encounter Qualified Code(s): T50.905A - Adverse effect of unspecified drugs, medicaments and biological substances, initial encounter (2) Acute hyponatremia: (3) Acute encephalopathy: (4) Generalized weakness: (5) Low vitamin B12 level: Plan Metabolic encephalopathy Etiology unknown Dehydration Continue IV fluids Hyponatremia noted Poor p.o. intake Start PPN Consult dietitian Low vitamin B12 we will replenish cyanocobalamin intramuscularly Requested MRI head Afebrile Further plan will be made after reviewing MRI head May request neurology for lumbar puncture Full code Attestations 2 Medical Necessity Statement*: Continue medical management Diagnoses Medication adverse effect T50.905A Encounter type: initial encounter Acute hyponatremia E87.1 Acute encephalopathy G93.40 Generalized weakness R53.1 Low vitamin B12 level R79.89
[2023-11-05 12:00] VITALS: BP 131/77; PULSE 65; RESP 18; O2SAT 95
[2023-11-05 12:33] LABS: Lactate Dehydrogenase 186 U/L (135-225); Prolactin 10.59 ng/mL (4.0-15.2)
[2023-11-05] MEDS: sodium chloride 0.9% 1,000 ML 75 ML IV (13:58)
[2023-11-05] MEDS: sodium chloride 1 gm Tablet PO ×2 (13:59→17:01)
[2023-11-05] MEDS: cyanocobalamin 1,000 mcg/mL SDV 1000 MCG IM (13:59)
[2023-11-05] MEDS: lisinopril 10 mg Tablet PO (13:59)
--- NOTE | 2023-11-05 15:37 | PC.NUTR ---
Consult for PPN received. Recommend beginning 4.25%AA 5%dextrose @ 23mls/hr, increasing 20mls Q8H until reach goal rate of 83mls/hr, with MV 10mls/day, standard electrolytes and 20gm/100mls fat emulsion. Details in RD assessment.
[2023-11-05 17:32] VITALS: BP 136/72; PULSE 66; RESP 18; TEMP 36.6; O2SAT 95
[2023-11-05 19:55] VITALS: BP 139/80; PULSE 71; RESP 18; TEMP 37.1; O2SAT 96
[2023-11-05] MEDS: acetaminophen 325 mg Tablet 650 MG PO (20:47)
[2023-11-06 00:32] VITALS: BP 130/60; PULSE 72; RESP 16; O2SAT 96
[2023-11-06] MEDS: sodium chloride 0.9% 1,000 ML 75 ML IV (02:04)
[2023-11-06 04:46] VITALS: BP 120/70; PULSE 58; RESP 20; O2SAT 95
[2023-11-06] MEDS: levothyroxine 25 mcg Tablet PO (05:25)
[2023-11-06 05:28] LABS: Basophils # 0.1 10^3/uL (0.0-0.1); Basophils % 0.7 %; Eosinophils # 0.5 10^3/uL (0.0-0.8); Eosinophils % 7.3 %; Hematocrit 42.9 % (37-53); Lymphocytes # 2.5 10^3/uL (0.8-4.8); Lymphocytes % 35.1 %; Mean Corpuscular HGB Conc 33.1 g/dL (30-55); Mean Corpuscular Hemoglobin 30.7 pg (27-33); Mean Corpuscular Volume 92.9 fl (82-101); Mean Platelet Volume 9.9 fL (7.4-10.4); Monocytes # 1.1 10^3/uL (0.2-0.9); Monocytes % 14.5 %; Neutrophils # 3.05 10^3/uL (1.8-7.7); Neutrophils % 42.1 %; Nucleated Red Blood Cells % 0 %; Platelet Count 217 10^3/cmm (157-399); Red Blood Count 4.62 10^6/uL (3.85-5.65); Red Cell Distribution Width 13.7 % (12.1-15.1); White Blood Count 7.24 10^3/uL (3.29-11.43)
[2023-11-06 06:07] LABS: Lactic Sepsis W/Reflex 0.9 mmol/L (0.5-2.2)
[2023-11-06 06:08] LABS: Alanine Aminotransferase 28 U/L (0-41); Albumin Level 3.3 g/dL (3.5-5.2); Alkaline Phosphatase 84 U/L (40-130); Anion Gap 14.4 (5-19); Aspartate Amino Transferase 52 U/L (0-40); Blood Urea Nitrogen 13 mg/dL (8-23); Calcium 7.8 mg/dL (8.5-10.5); Carbon Dioxide 23 mmol/L (22-29); Chloride 102 mmol/L (98-107); Creatinine Clr Calc Pharmacy 64.6404; Globulin 3.4 g/dL (1.3-4.6); Glucose 97 mg/dL (65-115); Osmolality Calculated 280 mOsm/kg (285-295); Potassium 4.4 mmol/L (3.5-5.1); Sodium 135 mmol/L (136-145); Total Bilirubin 0.4 mg/dL (0.15-1.2); Total Protein 6.7 g/dL (6.6-8.7)
[2023-11-06 08:00] VITALS: BP 136/70; PULSE 54; RESP 18; TEMP 36.2; O2SAT 97
[2023-11-06 08:54] VITALS: PULSE 71
[2023-11-06] MEDS: tamsulosin 0.4 mg Capsule 0.400000000000000022 MG PO (08:55)
[2023-11-06] MEDS: sodium chloride 1 gm Tablet PO (08:55)
[2023-11-06] MEDS: lisinopril 10 mg Tablet PO (08:55)
[2023-11-06] MEDS: cyanocobalamin 1,000 mcg/mL SDV 1000 MCG IM (08:55)
--- NOTE | 2023-11-06 10:22 | P.DS_ITS ---
Discharge Providers Date of Admission: 11/04/23 10:00 Date of Discharge: November 06, 2023 Attending Provider at Admission: Herson Cavazos Attending Provider at Discharge: Justin Prescott MD Primary Care Provider: Nicole Prabhakar NP Diagnoses at Discharge Discharge Diagnosis (1) Medication adverse effect: Status: Acute Qualifiers: Encounter type: initial encounter Qualified Code(s): T50.905A - Adverse effect of unspecified drugs, medicaments and biological substances, initial encounter (2) Acute hyponatremia: Status: Acute (3) Acute encephalopathy: Status: Acute (4) Generalized weakness: Status: Acute (5) Low vitamin B12 level: Status: Acute Reason for Visit Reason for Visit: weakness,fever Hospital Course Hospital Course 88-year male who was admitted to the hospital for management evaluation of generalized weakness, in the ER he was given Ativan which made him very sedated it took us 3 days to wake him up he could eat on his own, patient is awake and alert talking to his family, no sign of stroke, CT head unremarkable, a workup has been negative, he has low vitamin B12, UA unremarkable, MRI head was requested which was canceled because of improvement in his clinical status, patient was given IV fluids throughout hospitalization, signs of dehydration improved, I do believe his symptoms are related to low B12 I have recommended daily supplementation PT recommending senior care but patient and family both want to go home with home health services is concerned that senior care will do more harm than benefit. Physical Exam Narrative: Pleasant cooperative NIH 2 GCS 15 Nonfocal neuroexam Eating breakfast Cracking jokes Urinary Catheter Management: [place]: Cath Placed During This Visit: yes Reason for Continuing Indwelling Catheter: Required Immobilization for Trauma or Surgery or Anesthesia Urinary Catheter Date of Insertion: 11/03/23 Urinary Catheter Time of Insertion: 10:00 Discharge Data Studies Completed and Pending Completed Studies During Hospitalization Category Date Time Status CT chest abdomen pelvis [CT chest abdpel w/*[id number] Cat Scan 11/02/23 23:08 Completed ] Stat XR chest 1V portable [id number] Stat Exams 11/02/23 21:55 Completed Pending at discharge Category Date Time Status Tick Panel Routine Lab 11/05/23 12:02 Received MR head wo con* [id number] Routine MRI 11/06/23 08:13 Ordered Radiology Impressions Chest X-Ray 11/02/23 21:55 IMPRESSION: There is some asymmetry in interstitial lung markings at the left lung base of uncertain significance without comparison imaging available. This could represent underlying chronic interstitial fibrosis but cannot exclude acute process. Recommend radiographic follow-up. PA and lateral chest radiographs with improved inspiratory effort for could be helpful. Chest/Abdomen/Pelvis CT 11/02/23 23:08 IMPRESSION: 1. Fibrotic interstitial pulmonary changes. 2. No definite focal pneumonia seen. IMPRESSION: Negative for acute abdominopelvic pathology. Laboratory Results WBC 7.24 10^3/uL (3.29-11.43) 11/06/23 05:22 RBC 4.62 10^6/uL (3.85-5.65) 11/06/23 05:22 Hgb 14.20 g/dL (11.27-16.99) 11/06/23 05:22 Hct 42.9 % (37-53) 11/06/23 05:22 MCV 92.9 fl (82-101) 11/06/23 05:22 MCH 30.7 pg (27-33) 11/06/23 05:22 MCHC 33.1 g/dL (30-55) 11/06/23 05:22 RDW 13.7 % (12.1-15.1) 11/06/23 05:22 Plt Count 217 10^3/cmm (157-399) 11/06/23 05:22 MPV 9.9 fL (7.4-10.4) 11/06/23 05:22 Neut % (Auto) 42.1 % 11/06/23 05:22 Lymph % (Auto) 35.1 % 11/06/23 05:22 [place] % (Auto) 14.5 % 11/06/23 05:22 Eos % (Auto) 7.3 % 11/06/23 05:22 Baso % (Auto) 0.7 % 11/06/23 05:22 Neut # (Auto) 3.05 10^3/uL (1.8-7.7) 11/06/23 05:22 Lymph # (Auto) 2.5 10^3/uL (0.8-4.8) 11/06/23 05:22 [place] # (Auto) 1.1 10^3/uL (0.2-0.9) H 11/06/23 05:22 Eos # (Auto) 0.5 10^3/uL (0.0-0.8) 11/06/23 05:22 Baso # (Auto) 0.1 10^3/uL (0.0-0.1) 11/06/23 05:22 Nucleated RBC % (auto) 0 % 11/06/23 05:22 Nucleated RBCs # 0.0 /100WBC 11/06/23 05:22 Sodium 135 mmol/L (136-145) L 11/06/23 05:22 Potassium 4.4 mmol/L (3.5-5.1) 11/06/23 05:22 Chloride 102 mmol/L (98-107) 11/06/23 05:22 Carbon Dioxide 23 mmol/L (22-29) 11/06/23 05:22 Anion Gap 14.4 (5-19) 11/06/23 05:22 BUN 13 mg/dL (8-23) 11/06/23 05:22 Creatinine 0.9 mg/dL (0.7-1.2) 11/06/23 05:22 GFR Calculation Not Reportable 11/06/23 05:22 Glucose 97 mg/dL (65-115) 11/06/23 05:22 Calculated Osmolality 280 mOsm/kg (285-295) L 11/06/23 05:22 Lactic Acid 0.9 mmol/L (0.5-2.2) 11/06/23 05:22 Calcium 7.8 mg/dL (8.5-10.5) L 11/06/23 05:22 Magnesium 1.9 mg/dL (1.7-2.3) 11/02/23 22:08 Total Bilirubin 0.4 mg/dL (0.15-1.2) 11/06/23 05:22 AST 52 U/L (0-40) H 11/06/23 05:22 ALT 28 U/L (0-41) 11/06/23 05:22 Alkaline Phosphatase 84 U/L (40-130) 11/06/23 05:22 Lactate Dehydrogenase 186 U/L (135-225) 11/05/23 04:35 Troponin T Baseline 20 ng/L (0-15) H 11/02/23 22:08 Troponin T 120 Minute 18.48 ng/L (0-15) H 11/02/23 00:35 Delta Troponin T 1.52 ABS# (0-10) 11/02/23 00:35 Troponin T Hi Sens 6Hr 23.75 ng/L (0-15) H 11/03/23 13:07 Troponin T Hi Sens 6Hr Delta 3.75 ng/L (0-12) 11/03/23 13:07 Total Protein 6.7 g/dL (6.6-8.7) 11/06/23 05:22 Albumin 3.3 g/dL (3.5-5.2) L 11/06/23 05:22 Globulin 3.4 g/dL (1.3-4.6) 11/06/23 05:22 Vitamin B12 166 pg/mL (232-1245) L 11/04/23 03:06 TSH 1.70 uIU/mL (0.27-4.20) 11/02/23 22:07 Prolactin 10.59 ng/mL (4.0-15.2) 11/05/23 04:35 Urine Color Yellow (Yellow) 11/02/23 22:30 Urine Appearance Clear (CLEAR) 11/02/23 22:30 Urine pH 5 (5-7) 11/02/23 22:30 Ur Specific [place] 1.015 (1.005-1.030) 11/02/23 22:30 Urine Protein Neg (Negative) 11/02/23 22:30 Urine Glucose (UA) Norm (Normal) 11/02/23 22:30 Urine Ketones Negative (Negative) 11/02/23 22:30 Urine Blood 2+ (Negative) H 11/02/23 22:30 Urine Nitrate Negative (Negative) 11/02/23 22:30 Urine Bilirubin 1+ (Negative) H 11/02/23 22:30 Urine Urobilinogen Norm mg/dL (Negative) 11/02/23 22:30 Ur Leukocyte Esterase Negative (Negative) 11/02/23 22:30 Urine RBC 5-10 /hpf (0-2) H 11/02/23 22:30 Urine WBC 0-4 /hpf (0-5) H 11/02/23 22:30 Ur Squamous Epith Cells 0-4 /hpf (0-5) H 11/02/23 22:30 Amorphous Sediment Not Reportable 11/02/23 22:30 Urine Bacteria Trace /hpf (NONE) 11/02/23 22:30 Urine Mucus Trace /hpf 11/02/23 22:30 Urine Opiates Screen Negative ng/mL (Negative) 11/04/23 09:54 Ur Barbiturates Screen Negative ng/mL (Negative) 11/04/23 09:54 Ur Phencyclidine Scrn Negative ng/mL (Negative) 11/04/23 09:54 Ur Amphetamines Screen Negative ng/mL (Negative) 11/04/23 09:54 U Benzodiazepines Scrn Positive ng/mL (Negative) H 11/04/23 09:54 Urine Cocaine Screen Negative ng/mL (Negative) 11/04/23 09:54 U Marijuana (THC) Screen Negative ng/mL (Negative) 11/04/23 09:54 Influenza Type A Ag negative (Negative) 11/03/23 00:45 Influenza Type B Ag negative (Negative) 11/03/23 00:45 SARS-CoV-2 Ag (Rapid) negative (Negative) 11/03/23 00:45 Vitals Last Vital Signs Temp 97.2 F L 11/06/23 08:00 Pulse 71 11/06/23 08:54 Resp 18 11/06/23 08:00 BP 136/70 11/06/23 08:00 Pulse Ox 97 11/06/23 08:00 O2 Del Method Room Air 11/06/23 08:00 Discharge Plan Discharge Patient Disposition: Home Condition: Stable Prescriptions: New cyanocobalamin (vitamin B-12) 1,000 mcg capsule 1,000 mcg PO DAILY Qty: 90 0RF Continued Tylenol Ex Str Rapid Release 500 mg Tablet 1,000 mg PO .UP TO BID levothyroxine 25 mcg tablet 25 mcg PO QAM tamsulosin 0.4 mg capsule 0.4 mg PO DAILY Discharge Orders: Discharge Order (Routine); Ordered 11/06/23 Ordered By: Justni Prescott Referrals: Nicole Prabhakar NP [Primary Care Provider] - Discharge Diet: Regular Discharge Activity: Increase activity as tolerated Patient Instructions: Opioid Safety, Pain Management Activity Restrictions/Additional Instructions: Please take vitamin B12 on daily basis You have low vitamin B12, your level was 166pg/L Discharge Attestations Time Spent in Discharge Care*: greater than 30 min Quality Metrics Clinical Quality Measures [ No reported AMI, CVA or VTE this stay] Coding Level of Care Code Acute Code for Chg Fwd Diagnoses Medication adverse effect T50.905A Encounter type: initial encounter Acute hyponatremia E87.1 Acute encephalopathy G93.40 Generalized weakness R53.1 Low vitamin B12 level R79.89
[2023-11-06 12:00] VITALS: BP 145/70; PULSE 57; RESP 20; TEMP 36.7; O2SAT 96
--- NOTE | 2023-11-06 15:44 | PC.NURSE ---
Discharge discussed with spouse and daughter at bedside. Discussed follow up appointments, new medications and continued medications. Verbalization from both parties of understanding.
[2023-11-06 15:46] VITALS: BP 145/70; PULSE 57; RESP 20; TEMP 36.7; O2SAT 96
[2023-11-07 12:34] LABS: Lyme AB Screen <0.90 index
[2023-11-14 16:34] LABS: E. Chaffeensis AB IGG <1:64; E. Chaffeensis AB IGM <1:20
[2023-11-15 15:54] LABS: RMSF IGG DETECTED; RMSF IGM NOT DETECTED
== END 2023-11-06 13:40 | disposition home health service (06) | DRG 92 ==
LOC: ER 11-03 01:51 → MEDSURG 11-03 02:06
PROVIDERS: Admitting Provider Internal Medicine; Emergency Provider Emergency Medicine; PCP Nurse Practitioner Family; Visit Provider Internal Medicine
DX: G92.8 Other toxic encephalopathy (principal); E87.1 Hypo-osmolality and hyponatremia; T42.4X5A Adverse effect of benzodiazepines, initial encounter; Y92.230 Patient room in hospital as the place of occurrence of the external cause; E53.8 Deficiency of other specified B group vitamins; E86.0 Dehydration; R29.6 Repeated falls; E03.9 Hypothyroidism, unspecified; N40.0 Benign prostatic hyperplasia without lower urinary tract symptoms
CPT/HCPCS: 36415; 51702; 71045; 71260; 74177; 80053; 80306; 81001; 82607; 83605; 83615; 83735; 84146; 84443; 84484; 85025; 86618; 86666; 86757; 87426; 87804; 93005; 96372; 96374; 96375; 97110; 97116; 97161; 97530; 99285; G0378; J1630; J2060; J3420; J7030; Q9967

== ENCOUNTER 2023-11-16 10:50 | Inpatient (IN) | payer MEDICARE, SELFPAY ==
[2023-11-16] VITALS (7 sets, daily range): BP systolic 158–178; BP diastolic 76–104; PULSE 60–98; RESP 15–18; TEMP 36.4–36.7; O2SAT 92–97
--- NOTE | 2023-11-16 10:52 | CT_ITS ---
WS: [id number] CT HEAD NONCONTRAST HISTORY: r sided weakness TECHNIQUE: Contiguous axial imaging performed through the brain in 2.5 mm imaging. Bone and soft tiss ue windows. Sagittal and coronal reformats reviewed. All CT scans at [facility] use at least one of these dose optimization techniques: automated exposure control; mA and/or kV adjustment per pa tient size (includes targeted exams where dose is matched to clinical indication); or iterative recon struction. DLP: 997.78 mGy COMPARISON: None available. No acute intracranial hemorrhage. There is significant bilateral atrophy. There is a large prior LEFT occipital lobe infarct. No acute LEFT parietal infarct. Large remote RIGHT parieto-occipital infarct . There is encephalomalacia and ex vacuo dilatation of the lateral ventricle. Small prior lacunar inf arcts in the basal ganglia. Ventricles: Mild ventriculomegaly on the basis of atrophy. Paranasal sinuses: As visualized are clear. Mastoid air cells: Well pneumatized. Calvarium and scalp: Skull is intact with no soft tissue edema or swelling. IMPRESSION: 1. No acute intracranial hemorrhage or edema. 2. Remote LEFT parietal infarct. 3. Large remote RIGHT parieto-occipital infarct. 4. 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
--- NOTE | 2023-11-16 11:27 | ECG_ITS ---
[facility] Test Date: 2023-11-16 Pat Name: Bobby aWy Department: Room: Gender: Male Selling Specialist: : [id number] Requested By: Rey Cat Order Number: [id number] Chase MD: Agustin Byrnes M.D. Measurements Intervals [place] Rate: 64 P: 59 TN: 238 QRS: 18 QRSD: 111 T: 55 QT: 418 QTc: 434 Interpretive Statements SINUS RHYTHM WITH FIRST DEGREE AV BLOCK WITH OCCASIONAL SUPRAVENTRICULAR PREMATURE COMPLEXES INCOMPLETE RIGHT BUNDLE BRANCH BLOCK [90+ ms QRS DURATION, TERMINAL R IN V1/V2, 40+ ms S IN I/aVL/V4/V5/V6] Compared to ECG 11/03/2023 00:58:36 Left-axis deviation no longer present Myocardial infarct finding no longer present Electronically Signed On 11-16-2023 11:59:28 CDT by Agustin Byrnes M.D. [id number]
[2023-11-16 11:32] LABS: Basophils # 0.1 10^3/uL (0.0-0.1); Basophils % 0.7 %; Eosinophils # 0.4 10^3/uL (0.0-0.8); Eosinophils % 3.8 %; Hematocrit 42.6 % (37-53); Lymphocytes # 2.9 10^3/uL (0.8-4.8); Lymphocytes % 30.2 %; Mean Corpuscular HGB Conc 33.1 g/dL (30-55); Mean Corpuscular Hemoglobin 30.6 pg (27-33); Mean Corpuscular Volume 92.4 fl (82-101); Monocytes # 1.3 10^3/uL (0.2-0.9); Monocytes % 13.4 %; Neutrophils # 4.88 10^3/uL (1.8-7.7); Neutrophils % 51.4 %; Nucleated Red Blood Cells % 0 %; Platelet Count 317 10^3/cmm (157-399); Red Blood Count 4.61 10^6/uL (3.85-5.65); Red Cell Distribution Width 13.8 % (12.1-15.1)
--- NOTE | 2023-11-16 11:45 | PC.PHAR ---
pts and daughter verified pts medications-pts states the pts flomax 0.4mg daily was dced by the pts pcp at the follow up appt when pt was dced from the hospital-pts and daughter states the pt use to take 81mg aspirin sometimes but states not had in a while and wanted 81mg aspirin left off the pts chart
[2023-11-16 11:51] LABS: INR 0.97 (0.8-1.2)
[2023-11-16 11:52] LABS: Partial Thromboplastin Time 32.4 SECONDS (23.9-36.7)
[2023-11-16 11:55] LABS: Alanine Aminotransferase 14 U/L (0-41); Albumin Level 3.6 g/dL (3.5-5.2); Alkaline Phosphatase 91 U/L (40-130); Blood Urea Nitrogen 9 mg/dL (8-23); Calcium 8.9 mg/dL (8.5-10.5); Carbon Dioxide 24 mmol/L (22-29); Chloride 101 mmol/L (98-107); Creatinine Clr Calc Pharmacy 72.3862; Globulin 2.9 g/dL (1.3-4.6); Glucose 100 mg/dL (65-115); Osmolality Calculated 279 mOsm/kg (285-295); Sodium 135 mmol/L (136-145); Total Bilirubin 0.5 mg/dL (0.15-1.2); Total Protein 6.5 g/dL (6.6-8.7)
[2023-11-16 11:56] LABS: Troponin(5th) Baseline 18 ng/L (0-15)
[2023-11-16 11:58] LABS: Anion Gap 14.2 (5-19); Aspartate Amino Transferase 23 U/L (0-40); Potassium 4.2 mmol/L (3.5-5.1)
--- NOTE | 2023-11-16 12:10 | ED_ITS ---
HPI - Weakness 2 General: Chief complaint: Weakness Stated complaint: rt sided weakness Time Seen by Provider: 11/16/23 10:52 History of Present Illness: 88-year-old male presents emergency room via EMS with report of 2 days onset of symptoms of right-sided weakness. Evidently home health nurse physical therapist had been out to the home evaluated the patient and had told them that they think he had a stroke. This morning he had more pronounced symptoms and presented to the ER via EMS. Initially report is from EMS there is no family at the bedside patient identifies the weakness on his right side has some difficulty with speech and swallowing Associated symptoms: Denies chest pain, chills, dysuria or fever(s) Review of Systems 2 Const: Denies: fever(s) or chills Card: Denies: chest pain Resp: Denies: dyspnea GI: Denies: abdominal pain : Denies: dysuria, urinary frequency or urinary urgency Musc: Denies: neck pain or back pain Skin/Breast: Denies: rash PFSH ED 2 PFSH: Medical History Low vitamin B12 level Acute hyponatremia Drug overdose of undetermined intent Acute encephalopathy Medication adverse effect Generalized weakness Hypothyroidism BPH (benign prostatic hyperplasia) Social History (Updated 11/16/23 @ 14:48 by Herson Cavazos MD) Smoking and tobacco/nicotine status: never used tobacco/nicotine Physical Exam 2 Const: COMMON NORMALS: no acute distress GENERAL APPEARANCE: cooperative and comfortable ORIENTATION/CONSCIOUSNESS: Yes awake, Yes oriented to person, Yes oriented to place and Yes oriented to time HENMT: COMMON NORMALS: normocephalic, atraumatic and hearing grossly normal bilaterally HEAD & SCALP: normocephalic and atraumatic Resp: COMMON NORMALS: normal respiratory effort, No retractions, No use of accessory muscles and clear to auscultation bilaterally AUSCULTATION: clear to auscultation bilaterally Cardio: COMMON NORMALS: regular rate, regular rhythm and No murmurs present (Cardio) RATE: regular rate RHYTHM: regular rhythm GI: COMMON NORMALS: Soft to palpation and No hepatosplenomegaly present A USCULTATION: Yes normoactive bowel sounds PALPATION: Yes Soft to palpation, No Tenderness to palpation present (GI), No Guarding due to palpation present (GI) and Yes No hepatosplenomegaly present Extremity: COMMON NORMALS: normal to inspection, capillary refill normal, no clubbing, cyanosis or edema, no calf tenderness and no pedal edema Neuro: SENSORIUM/ORIENTATION: Yes oriented to person, Yes oriented to place and Yes oriented to time Skin: COMMON NORMALS: no rashes or lesions noted GENERAL SKIN EXAM: no rashes or lesions noted Course 2 Vital Signs: Vital signs: Vital Signs Temperature 98.1 F 11/16/23 10:51 Pulse Rate 71 11/16/23 14:00 Respiratory Rate 18 11/16/23 14:00 Blood Pressure 178/104 11/16/23 13:11 Pulse Oximetry 94 11/16/23 14:00 Oxygen Delivery Me thod Room Air 11/16/23 14:00 MDM - Weakness Medical Decision Making 1313 - Initial report from EMS was that the patient's last known well was 2 days ago that symptoms had begun 2 days ago. They were relaying this report from the family. At around 1:00 to family arrived the night interviewed them they are stating that 2 days ago he was him seen by home health and the home health nurse was concerned he might of had a stroke. They had previously been told he might have some early dementia the home health nurse stated he she did not think he had any dementia but rather had a stroke he seen physical therapy they did some testing evidently at the bedside and informed the family they thought he had had a stroke as well. Evidently this is where the information about the 2-day-old symptoms came from. The family at the bedside now tells me that he has been at his normal baseline since he was last dismissed from the hospital up until this morning. He went to bed last night and was normal and got up around midnight to 1:00 ate and drank and was seen by the family using his right arm without any difficulty then when he woke up this morning at 6 AM he could not use his right arm or swallow well. Given that he would still potentially be in the window for thrombolytic therapy and a CTA of the head and neck has been ordered emergently. CTA completed and reviewed with Dr. Quezada patient is not a candidate for embolectomy on this time. There is some areas of stenosis which feels most of those are old nothing acute. Patient still has little to nothing more than effort against gravity with the left arm. Discussed with family. Reviewed findings of exam today as well as initial CT showing several old previous strokes. Reviewed again with Dr. Cavazos given the change in the timeline family had provided us although it is not changing our outcome plans at this point. Medical Records I reviewed the patient's medical records. Lab Data I reviewed the patient's lab results. 11/16/23 11:26 11/16/23 11:26 Laboratory Results WBC 9.50 10^3/uL (3.29-11.43) 11/16/23 11: RBC 4.61 10^6/uL (3.85-5.65) 11/16/23 11: Hgb 14.10 g/dL (11.27-16.99) 11/16/23 11: Hct 42.6 % (37-53) 11/16/23 11: MCV 92.4 fl (82-101) 11/16/23 11: MCH 30.6 pg (27-33) 11/16/23 11: MCHC 33.1 g/dL (30-55) 11/16/23 11: RDW 13.8 % (12.1-15.1) 11/16/23 11: Plt Count 317 10^3/cmm (157-399) 11/16/23 11: MPV 10.0 fL (7.4-10.4) 11/16/23 11: Neut % (Auto) 51.4 % 11/16/23 11:26 Lymph % (Auto) 30.2 % 11/16/23 11:26 Republic % (Auto) 13.4 % 11/16/23 11: Eos % (Auto) 3.8 % 11/16/23 11: Baso % (Auto) 0.7 % 11/16/23 11: Neut # (Auto) 4.88 10^3/uL (1.8-7.7) 11/16/23 11: Lymph # (Auto) 2.9 10^3/uL (0.8-4.8) 11/16/23 11: Republic # (Auto) 1.3 10^3/uL (0.2-0.9) H 11/16/23 11:26 Eos # (Auto) 0.4 10^3/uL (0.0-0.8) 11/16/23 11:26 Baso # (Auto) 0.1 10^3/uL (0.0-0.1) 11/16/23 11: Nucleated RBC % (auto) 0 % 11/16/23 11: Nucleated RBCs # 0.0 /100WBC 11/16/23 11:26 PT 13.20 SECONDS (12.1-14.9) 11/16/23 11: INR 0.97 (0.8-1.2) 11/16/23 11:26 APTT 32.4 SECONDS (23.9-36.7) 11/16/23 11:26 Sodium 135 mmol/L (136-145) L 11/16/23 11: Potassium 4.2 mmol/L (3.5-5.1) 11/16/23 11: Chloride 101 mmol/L (98-107) 11/16/23 11: Carbon Dioxide 24 mmol/L (22-29) 11/16/23 11:26 Anion Gap 14.2 (5-19) 11/16/23 11:26 BUN 9 mg/dL (8-23) 11/16/23 11:26 Creatinine 0.7 mg/dL (0.7-1.2) 11/16/23 11:26 GFR Calculation Not Reportable 11/16/23 11: Glucose 100 mg/dL (65-115) 11/16/23 11:26 Calculated Osmolality 279 mOsm/kg (285-295) L 11/16/23 11:26 Calcium 8.9 mg/dL (8.5-10.5) 11/16/23 11:26 Total Bilirubin 0.5 mg/dL (0.15-1.2) 11/16/23 11:26 AST 23 U/L (0-40) 11/16/23 11:26 ALT 14 U/L (0-41) 11/16/23 11: Alkaline Phosphatase 91 U/L (40-130) 11/16/23 11:26 Troponin T Baseline 18 ng/L (0-15) H 11/16/23 11:26 Troponin T 120 Minute 19.71 ng/L (0-15) H 11/16/23 13:18 Delta Troponin T 1.71 ABS# (0-10) 11/16/23 13:18 Total Protein 6.5 g/dL (6.6-8.7) L 11/16/23 11:26 Albumin 3.6 g/dL (3.5-5.2) 11/16/23 11: Globulin 2.9 g/dL (1.3-4.6) 11/16/23 11:26 Urine Color Light yellow (Yellow) 11/16/23 13:10 Urine Appearance Clear (CLEAR) 11/16/23 13:10 Urine pH 6 (5-7) 11/16/23 13:10 Ur Specific Smilax 1.005 (1.005-1.030) 11/16/23 13:10 Urine Protein Neg (Negative) 11/16/23 13:10 Urine Glucose (UA) Norm (Normal) 11/16/23 13:10 Urine Ketones Negative (Negative) 11/16/23 13:10 Urine Blood 2+ (Negative) H 11/16/23 13:10 Urine Nitrate Negative (Negative) 11/16/23 13:10 Urine Bilirubin Neg (Negative) 11/16/23 13:10 Urine Urobilinogen Norm mg/dL (Negative) 11/16/23 13:10 Ur Leukocyte Esterase Negative (Negative) 11/16/23 13:10 Urine RBC 0-4 /hpf (0-2) H 11/16/23 13:10 Urine WBC 0-4 /hpf (0-5) H 11/16/23 13:10 Ur Squamous Epith Cells 0-4 /hpf (0-5) H 11/16/23 13:10 Amorphous Sediment Not Reportable 11/16/23 13:10 Urine Bacteria Trace /hpf (NONE) 11/16/23 13:10 Urine Opiates Screen Negative ng/mL (Negative) 11/16/23 13:10 Ur Barbiturates Screen Negative ng/mL (Negative) 11/16/23 13:10 Ur Phencyclidine Scrn Negative ng/mL (Negative) 11/16/23 13:10 Ur Amphetamines Screen Negative ng/mL (Negative) 11/16/23 13:10 U Benzodiazepines Scrn Negative ng/mL (Negative) 11/16/23 13:10 Urine Cocaine Screen Negative ng/mL (Negative) 11/16/23 13:10 U Marijuana (THC) Screen Negative ng/mL (Negative) 11/16/23 13:10 All radiology interpretation(s) finalized by discharge Discharge Plan Discharge Patient Disposition: Admitted As Inpatient Admit Provider: Herson Cavazos Clinical Impression: CVA (cerebral vascular accident) Condition: Stable Coding Level of Care Code ED [employer] Coordinator for Chg Fwd NIH stroke score NIHSS Level Of Consciousness - 1a: 0 Level Of Consciousness Questions - 1b: Both Correct Level Of Consciousness Commands - 1c: Both Correct Best Gaze - 2: Normal Visual Yan - 3: No Visual Loss Facial Palsy - 4: Minor Paralysis Motor Arm Right - 5: No Effort Against Smilax Motor Arm Left - 5: No Drift Motor Leg Right - 6: Drift Motor Leg Left - 6: No Drift Limb Ataxia - 7: Present In Two Limbs Sensory - 8: Normal Best Language - 9: Mild/Moderate Aphasia Dysarthia - 10: Mild/Moderate Dysarthia Extinction And Inattention - 11: 0 Score Total Score: 9
--- NOTE | 2023-11-16 13:12 | CT_ITS ---
WS: [id number] CT ANGIOGRAM CEREBRAL AND CAROTID ARTERIES HISTORY: acute CVA TECHNIQUE: CT angiogram is performed of the carotid and cerebral arteries. During arterial injection imaging is obtained from the skull vertex to the aortic arch in 1.25 mm imaging. Coronal and sagittal reformats are submitted. Additional multi planar reformats of the carotid and cerebral arteries are submitted, MIP imaging also reviewed. NASCET criteria utilized. [facility] CT scans at [facility] us e at least one of these dose optimization techniques: automated exposure control; mA and/or kV adjust ment per patient size (includes targeted exams where dose is matched to clinical indication); or iter ative reconstruction. CONTRAST: Omnipaque 350; 100 mL IV. DLP: 530.86 mGy.cm COMPARISON: None available. Breathing motion artifact causing limitations. Carotid Angiogram: Right carotid: Common carotid artery: Arises normally from the innominate artery. No significant plaque or stenosis. Internal carotid artery: Atherosclerotic plaque and intimal thickening at the bifurcation. There is s ignificant motion artifact obscuring the bifurcation. There is at least 50% stenosis but no complete obstruction. External carotid artery: Patent. Left carotid: Common carotid artery: Arises normally from the aorta. No significant plaque or stenosis. Internal carotid artery: Mild plaque at the bifurcation. 50% stenosis but no occlusion. Study is limi humberto by motion artifact. External carotid artery: Patent. Right vertebral artery: Dominant. There are a few areas of scattered plaque but no occlusion. Left vertebral artery: Small caliber and intermittently visualize due to motion artifact and breathin g. Subclavian arteries: No stenosis or significant abnormality. Upper thorax: Pulmonary fibrosis at the lung apices. Thyroid gland: Normal. Osseous structures: Diffuse mild cervical spondylosis. CEREBRAL ANGIOGRAM: Intracranial vertebral arteries: Dominant RIGHT vertebral artery. Very small caliber and possibly occ luded distal LEFT vertebral artery. Basilar artery: No significant stenosis or occlusion. No aneurysm. Intracranial Internal carotid arteries: Heavy calcification of the intracranial carotid arteries, RIG HT greater than LEFT. Stenosis estimated near 50 to 60%. More focal high-grade stenosis involving the LEFT supraclinoid carotid artery. Stenosis 70%. Middle cerebral arteries: Both middle cerebral arteries are patent. There is mild irregularity involv ing the LEFT M1 segment. No aneurysm or thrombus. No occlusion. Anterior cerebral arteries and ACOM: Normal. Posterior cerebral arteries and PCOM's: Normal. Hypoplastic LEFT P-comm. Dural venous sinuses are normally enhancing. Mastoid air cells: Normal. Paranasal sinuses: Normal. Calvarium: Normal. IMPRESSION: 1. Study quality is limited by motion artifact throughout. 2. Bilateral cervical carotid artery stenosis estimated at 50 to 60%. No occlusion. 3. 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 4. High-grade stenosis near 70% LEFT supraclinoid ICA. 5. Mild atherosclerotic plaque LEFT M1 segment but no thrombus or occlusion. 6. Small caliber partially nonvisualization of the LEFT vertebral artery. May be developmental.
[2023-11-16] MEDS: iohexol 350 mg/mL 500 mL Btl (per mL) IV (13:26)
--- NOTE | 2023-11-16 13:27 | ECG_ITS ---
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 Measurements Intervals [place] Rate: 62 P: 43 [place]: 231 QRS: 20 QRSD: 111 T: 47 QT: 415 QTc: 424 Interpretive Statements SINUS RHYTHM WITH FIRST DEGREE AV BLOCK INCOMPLETE RIGHT BUNDLE BRANCH BLOCK [90+ ms QRS DURATION, TERMINAL R IN V1/V2, 40+ ms S IN I/aVL/V4/V5/V6] Compared to ECG 11/16/2023 10:41:06 No significant changes Electronically Signed On 11-16-2023 13:24:18 CDT by Agustin Byrnes M.D. [id number]
[2023-11-16 13:31] LABS: Amphetamines Screen Urine Negative (Negative); Barbiturates Screen Urine Negative (Negative); Benzodiazepines Screen Urine Negative (Negative); Cocaine Screen Urine Negative (Negative); Opiate Screen Urine Negative (Negative); PCP Screen Urine Negative (Negative); THC Screen Urine Negative (Negative)
[2023-11-16 13:45] LABS: Add Urine Culture? No; Add Urine Microscopic? YES; Bacteria Urine TRACE /hpf; Bilirubin Urine Neg (Negative); Blood Urine 2+ (Negative); Glucose Urine UA Norm (Normal); Ketones Urine Negative (Negative); Leukocyte Esterase Urine Negative (Negative); Nitrate Urine Negative (Negative); Protein Urine Neg (Negative); RBC Urine 0-4 /hpf (0-2); Specific Gravity, Urine 1.005 (1.005-1.030); Squamous Epithelial Cell Urine 0-4 /hpf (0-5); Urine Appearance Clear (CLEAR); Urine Color Light yellow (Yellow); Urobilinogen Urine Norm (Negative); WBC Urine 0-4 /hpf (0-5); pH Urine 6 (5-7)
[2023-11-16 13:58] LABS: Troponin 5 2HR 19.71 ng/L (0-15); Troponin 5 2HR Delta 1.71 ABS# (0-10)
--- NOTE | 2023-11-16 14:41 | P.HP_ITS ---
Providers/Chief Complaint 2 Primary Care Provider: Nicole Prabhakar NP Chief Complaint: rt sided weakness History of Present Illness 88-year-old gentleman with hypothyroidism, BPH, was brought in for evaluation to ED due to concern of CVA, family stated last known well was around 1-2 AM when he was eating and able to use his right arm. He then went back to sleep. Later morning when he woke up he could not lift his right arm and experiencing weakness in the right leg as well. Symptoms are accompanied also by numbness on the right side. CT of the head was obtained without bleeding, with remote left parietal infarct, large remote right parietal occipital infarct, advanced small vessel ischemic disease and prior lacunar infarcts, but he was outside of the window for tPA. Per family he does not have history of dementia, normally his functional, ambulates independently. CT angiogram head and neck was obtained study with some compromised by motion, bilateral cervical artery stenosis estimated at 55 to 60%, no occlusion. 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 High-grade stenosis near 70% left supraclinoid ICA. Mild atherosclerotic plaque left M1 segment but no thrombus or occlusion. Dilcia partially nonvisualization of left vertebral artery. May be developmental. He denies any improvement in his symptoms. He is very hard of hearing, does hear when spoken to loudly. Most history obtained from his and daughter who are at bedside. Neither patient nor family were not aware of history of prior stroke and he has not had previous focal deficits. He is a non-smoker, his states his blood pressure usually runs 120-124 systolic when they check it at home. He has been having a lot of stress recently with his sons (nonbiological son's from his prior marriage) reportedly causing tension in the family. Patient and his and daughter request for no other visitors unless they are approved. Review of Systems 2 Const: Denies: fever(s), chills, body aches or malaise ENMT: Denies: throat pain Card: Denies: chest pain, edema, pre-syncope or dyspnea on exertion Resp: Denies: dyspnea or productive cough GI: Denies: abdominal pain, nausea, vomiting or diarrhea : Reports: other (On ciprofloxacin for UTI.) Skin/Breast: Denies: rash Neuro: Denies: headache(s), numbness in extremities, weakness in extremities, dizziness, confusion or seizure-like activity Medications/Allergies Home Medications Medication Instructions Recorded Confirmed Last Taken Type acetaminophen 500 mg tablet 500 mg PO .UP TO BID 11/03/23 11/16/23 11/16/23 History levothyroxine 25 mcg tablet 25 mcg PO QAM 11/03/23 11/16/23 11/16/23 History ciprofloxacin HCl 500 mg tablet 500 mg PO Q12H 11/16/23 11/16/23 11/15/23 History cyanocobalamin (vitamin B-12) 1,000 mcg PO QAM 11/16/23 11/16/23 11/15/23 History 1,000 mcg capsule Allergies Allergy/AdvReac Type Severity Reaction Status Date / Time lorazepam [From Ativan] Allergy Unknown Verified 11/16/23 11:44 meperidine [From Demerol] Allergy ADR-Shakine Verified 11/16/23 11:44 ss anxiety meds Allergy confused Uncoded 11/03/23 09:12 PFSH Acute 2 PFSH: Medical History Low vitamin B12 level Acute hyponatremia Drug overdose of undetermined intent Acute encephalopathy Medication adverse effect Generalized weakness Hypothyroidism BPH (benign prostatic hyperplasia) Social History (Updated 11/16/23 @ 14:48 by Herson Cavazos MD) Smoking and tobacco/nicotine status: never used tobacco/nicotine Vitals/I&O/Wt Last Vital Signs Temp 98.1 F 11/16/23 10:51 Pulse 71 11/16/23 14:00 Resp 18 11/16/23 14:00 BP 178/104 11/16/23 13:11 Pulse Ox 94 11/16/23 14:00 O2 Del Method Room Air 11/16/23 14:00 Weight last 48 hrs Weight 97.522 kg Physical Exam 2 Narrative: Accompanied by his and daughter. Const: COMMON NORMALS: patient oriented x3 and alert GENERAL APPEARANCE: c ooperative ORIENTATION/CONSCIOUSNESS: Yes awake HENMT: COMMON NORMALS: oropharynx normal Neck/C-Spine: COMMON NORMALS: no JVD Resp: COMMON NORMALS: normal respiratory effort and clear to auscultation bilaterally AUSCULTATION: clear to auscultation bilaterally Cardio: COMMON NORMALS: no JVD, regular rhythm, S1 normal heart sound present, S2 normal heart sound present and No murmurs present (Cardio) RHYTHM: regular rhythm HEART SOUNDS: S1 normal heart sound present and S2 normal heart sound present GI: COMMON NORMALS: Normal to inspection, nondistended, normoactive bowel sounds present, Soft to palpation and non-tender PALPATION: Yes Soft to palpation Extremity: COMMON NORMALS: no joint enlargement and no pedal edema Neuro: COMMON NORMALS: patient oriented x3 and moves all extremities S ENSORIUM/ORIENTATION: Yes alert OTHER: He is very hard of hearing but hears when spoken to loudly. Does take a bit of guidance with directions. No appreciable facial droop. He tracks without difficulty horizontally. Visual stack appear to be intact to confrontation without visual extinction. Some effort against gravity in the right upper extremity, right leg drifts down and hits bed, no drift in left upper or lower extremity. Sensation decreased on the right side do not have sensory extinction. Mild to moderate difficulty with FNF on the left. Skin: COMMON NORMALS: no rashes or lesions noted GENERAL SKIN EXAM: no rashes or lesions noted Data 11/16/23 11:26 11/16/23 11:26 A&P Assessment and plan (1) CVA (cerebral vascular accident): Acute CVA with acute focal deficits right-sided weakness, numbness. Reviewed vitals, CBC, INR, CMP, baseline anterior troponin, UA, UDS, head CT, CTA head and neck, EKG, ER note, discussed with ER provider. Most history is to be obtained from patient's family as he is hard of hearing and not a good historian. It appears that stroke is recurrent and he has had silent strokes before with remote strokes noted in left parietal lobe and right parietal occipital area. Was outside of the window for tPA, no large vessel thrombus noted on CTA. Admission was requested for additional assessment for actionable secondary causes. Discussed with him and family, will allow permissive hypertension at this time, monitor blood pressures following up to 220/120, currently 178/104. Start aspirin, statin. Monitor on telemetry, monitor vitals. He is a non-smoker. He takes some acetaminophen at home, does not take NSAIDs. Will check cholesterol panel, A1c. Check echocardiogram bubble study. High intensity statin if he will tolerate, noted multifocal cerebral vascular disease with bilateral cervical artery stenosis estimated at 55 to 60%, no occlusion. 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 High-grade stenosis near 70% left supraclinoid ICA. Mild atherosclerotic plaque left M1 segment but no thrombus or occlusion. Dilcia partially nonvisualization of left vertebral artery. May be developmental. PT, OT, ST assessment. Case management consultation, consideration of rehabilitation. Follow-up with neurology. Family were also concerned whether ciprofloxacin could have been the cause of the stroke, discussed it is not one of his reported side effects. Plan Hypothyroidism: Continue levothyroxine Recent UTI: He is currently taking ciprofloxacin Attestations 2 Medical Necessity Statement*: Place in observation for additional assessment of management of CVA. Diagnoses CVA (cerebral vascular accident) I63.9
--- NOTE | 2023-11-16 15:38 | USCV_ITS ---
Bobby Way Age: 88 Gender: M : 1935 Exam Date: 11/16/2023 18:13 Ordering Phys: Herson Cavazos MD Technologist: Eddy Booker Exam Location: [facility] [place] Indication: cva X2 BP: 0 / 94 HR: 61 Rhythm: Sinus Technical Quality: Adequate MEASUREMENTS (Male / Female) Normal Values 2D ECHO LVOT Diameter 2.0 cm LV Ejection Fraction MOD 2C 59.4 % LV Ejection Fraction 2C AL 59.0 % Aorta at Sinotubular Diameter 3.1 cm IVC Diameter 1.4 cm M-MODE LA Ao Ratio MM 1.3 AV Cusp Separation MM 2.0 cm DOPPLER AV Peak Velocity 100.0 cm/s LVOT Peak Velocity 62.0 cm/s AV Area Cont Eq vti 2.1 cm squared AV Area Cont Eq pk 2.0 cm squared MV Peak Velocity 110.0 cm/s MV Area PHT 4.6 cm squared Mitral E to A Ratio 0.7 TR Peak Velocity 66.0 cm/s TR Peak Gradient 1.7 mmHg TR Mean Velocity 48.0 cm/s TR Mean Gradient 1.0 mmHg TR Velocity Time Integral 13.0 cm PV Peak Velocity 76.3 cm/s RV Ejection Time 0.3 s FINDINGS Left Ventricle Normal left ventricular size and systolic function, EF 59%. Mild concentric left-ventricular hypertrophy.Grade I/IV diastolic dysfunction (abnormal relaxation filling pattern), normal to mildly elevated filling pressures. Right Ventricle The right ventricle is normal in size and function. Right Atrium The right atrium is normal in size. Left Atrium Saline contrast injection revealed no evidence of any right-to- left or [id number] shunt. Mitral Valve Trace mitral valve regurgitation. Aortic Valve Thickened aortic valve. Trace to mild aortic valve regurgitation. Tricuspid Valve No gross abnormalities noted Pulmonic Valve Mild pulmonary valve regurgitation. Pericardium Normal pericardium without effusion. Aorta Normal ascending aorta dimension. IVC Inferior vena cava not visualized. CONCLUSIONS Normal left ventricular size and systolic function, EF 59%. Mild concentric left-ventricular hypertrophy.Grade I/IV diastolic dysfunction (abnormal relaxation filling pattern), normal to mildly elevated filling pressures. Trace mitral valve regurgitation. Thickened aortic valve. Trace to mild aortic valve regurgitation. Mild pulmonary valve regurgitation. No intracardiac shunt by color-flow Doppler examination or by saline contrast injection No similar previous studies are available for comparison Dr Jefry Agudelo MD [facility] (Electronically Signed) Final Date: 16 November 2023 19:11 S
--- NOTE | 2023-11-16 17:43 | ECG_ITS ---
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 Measurements Intervals [place] Rate: 69 P: 46 ID: [id number] QRS: -8 QRSD: 105 T: 41 QT: 396 QTc: 427 Interpretive Statements SINUS RHYTHM WITH FIRST DEGREE AV BLOCK INCOMPLETE RIGHT BUNDLE BRANCH BLOCK [90+ ms QRS DURATION, TERMINAL R IN V1/V2, 40+ ms S IN I/aVL/V4/V5/V6] Compared to ECG 11/16/2023 12:14:06 No significant changes Electronically Signed On 11-16-2023 22:03:36 CDT by Agustin Byrnes M.D. [id number]
[2023-11-16] MEDS: aspirin 81 mg EC Tablet 162 MG PO (18:00)
[2023-11-16] MEDS: enoxaparin 40 mg/0.4 mL Syringe SUBCUT (18:01)
[2023-11-16] MEDS: ciprofloxacin 500 mg Tablet PO (18:01)
[2023-11-16 18:31] LABS: Troponin 5 6HR 25.77 ng/L (0-15); Troponin 5 6HR Delta 7.77 ng/L (0-12)
[2023-11-16] MEDS: atorvastatin 40 mg Tablet PO (21:43)
[2023-11-17] VITALS (8 sets, daily range): BP systolic 111–162; BP diastolic 64–83; PULSE 57–69; RESP 16–20; TEMP 36.3–36.8; O2SAT 94–97
[2023-11-17 04:51] LABS: Basophils # 0.1 10^3/uL (0.0-0.1); Basophils % 0.7 %; Eosinophils # 0.4 10^3/uL (0.0-0.8); Eosinophils % 5.1 %; Hematocrit 45.9 % (37-53); Lymphocytes # 2.1 10^3/uL (0.8-4.8); Lymphocytes % 28.6 %; Mean Corpuscular HGB Conc 32.7 g/dL (30-55); Mean Corpuscular Hemoglobin 30.7 pg (27-33); Mean Corpuscular Volume 94.1 fl (82-101); Mean Platelet Volume 10.1 fL (7.4-10.4); Monocytes % 13.4 %; Neutrophils # 3.76 10^3/uL (1.8-7.7); Neutrophils % 51.9 %; Nucleated Red Blood Cells % 0 %; Platelet Count 319 10^3/cmm (157-399); Red Blood Count 4.88 10^6/uL (3.85-5.65); Red Cell Distribution Width 13.7 % (12.1-15.1); White Blood Count 7.24 10^3/uL (3.29-11.43)
[2023-11-17 05:06] LABS: Anion Gap 12.5 (5-19); Blood Urea Nitrogen 8 mg/dL (8-23); Calcium 9.2 mg/dL (8.5-10.5); Carbon Dioxide 27 mmol/L (22-29); Chloride 102 mmol/L (98-107); Creatinine Clr Calc Pharmacy 71.6015; Glucose 94 mg/dL (65-115); Osmolality Calculated 282 mOsm/kg (285-295); Potassium 4.5 mmol/L (3.5-5.1); Sodium 137 mmol/L (136-145)
[2023-11-17 05:07] LABS: Estmated Average Glucose 111; Hemoglobin A1C 5.5 % (4.0-6.0)
[2023-11-17 05:12] LABS: Chol HDL Ratio 4.17 mg/dL (1.0-5.00); Cholesterol 171 mg/dL (0-200); HDL Cholesterol 41 mg/dL (60-100); LDL Cholesterol Calculated 112 mg/dL (50-129); LDL HDL Ratio 2.73 RATIO (0.00-3.22); Triglycerides 89 mg/dL (0-150)
[2023-11-17] MEDS: levothyroxine 25 mcg Tablet PO (05:28)
[2023-11-17] MEDS: ciprofloxacin 500 mg Tablet PO ×2 (05:28→16:59)
[2023-11-17] MEDS: aspirin 81 mg EC Tablet 162 MG PO (08:16)
--- NOTE | 2023-11-17 10:42 | PC.SLP ---
Therapist attempted to evaluate pt. Pt resting, at this time. Nursing reported no difficulty with swallowing, at this time. Family at bedside reported a coughing episode with a cracker. Therapist provided recommendation to not allow crackers. Will attempt later today.
--- NOTE | 2023-11-17 12:36 | PC.SLP ---
Therapist attempted for the second time to evaluate the patient. The patient was asleep. Therapist spoke to pt's family that the [employer] will attempt to evaluate tomorrow. The patient's family asked about giving the patient mashed potatoes, however, the therapist reported that the therapist could not say, due to the therapist not evaluating the patient.
[2023-11-17] MEDS: enoxaparin 40 mg/0.4 mL Syringe SUBCUT (16:54)
[2023-11-17] MEDS: atorvastatin 40 mg Tablet PO (20:01)
--- NOTE | 2023-11-17 20:29 | P.PN_ITS ---
Subjective 2 Subjective: He did work with physical therapy today. However somnolent through the day, could not work with ST. He does appear to be oriented, although did have some trouble with directions during neuro exam. There is some mild improvement in strength in right upper extremity. Vitals/I&O/Wt Last Vital Signs Temp 98.2 F 11/17/23 20:00 Pulse 65 11/17/23 20:00 Resp 16 11/17/23 20:00 BP 111/67 11/17/23 20:00 Pulse Ox 95 11/17/23 20:00 O2 Del Method Room Air 11/17/23 17:07 11/17/23 11/17/23 11/17/23 06:59 14:59 22:59 Intake Total 120 / 360 120 / 120 840 / 960 Output Total 200 / 400 Balance -80 / -40 120 / 120 840 / 960 Weight last 48 hrs Weight 95.39 kg Weight 97.522 kg Physical Exam 2 Narrative: Accompanied by his and daughter. Const: COMMON NORMALS: patient oriented x3 and alert GENERAL APPEARANCE: c ooperative ORIENTATION/CONSCIOUSNESS: Yes awake HENMT: COMMON NORMALS: oropharynx normal Neck/C-Spine: COMMON NORMALS: no JVD Resp: COMMON NORMALS: normal respiratory effort and clear to auscultation bilaterally AUSCULTATION: clear to auscultation bilaterally Cardio: COMMON NORMALS: no JVD, regular rhythm, S1 normal heart sound present, S2 normal heart sound present and No murmurs present (Cardio) RHYTHM: regular rhythm HEART SOUNDS: S1 normal heart sound present and S2 normal heart sound present GI: COMMON NORMALS: Normal to inspection, nondistended, normoactive bowel sounds present, Soft to palpation and non-tender PALPATION: Yes Soft to palpation Extremity: COMMON NORMALS: no joint enlargement and no pedal edema Neuro: COMMON NORMALS: patient oriented x3 and moves all extremities S ENSORIUM/ORIENTATION: Yes alert OTHER: He is very hard of hearing but hears when spoken to loudly. Does take a bit of guidance with directions. No appreciable facial droop. He tracks horizontally. Moderate difficulty with FNF on the left. He cut the exam short there. Skin: COMMON NORMALS: no rashes or lesions noted GENERAL SKIN EXAM: no rashes or lesions noted Data 11/17/23 04:23 11/17/23 04:23 A&P Assessment and plan (1) CVA (cerebral vascular accident): Mild improvement in symptoms a week in the right upper extremity. Still weakness in right lower extremity. Did work with physical therapy today. Reviewed vitals, hypertensive, would benefit from optimization, blood pressure 162/71, although this evening blood pressure 111/67. May be difficult to manage/labile blood pressure. Certainly stress control will be an important factor in management as she has been going through some stressful times recently. Hold off adding antihypertensive for now. Monitor blood pressure. Reviewed A1c, lipid profile. Continue aspirin, statin. Reviewed echocardiogram, no intracardiac shunt noted. Normal EF, grade 1 diastolic dysfunction. Monitor on telemetry for possible A-fib with multiple strokes concern for possible embolic phenomenon. Does have significant cerebrovascular disease as discussed with family. Continue statin, aspirin. Will benefit from lifestyle modification as well. Follow-up with neurology. Continue PT, OT, ST. Would benefit from acute rehab. Multifocal cerebral vascular disease with bilateral cervical artery stenosis estimated at 55 to 60%, no occlusion. 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 High-grade stenosis near 70% left supraclinoid ICA. Mild atherosclerotic plaque left M1 segment but no thrombus or occlusion. Dilcia partially nonvisualization of left vertebral artery. May be developmental. Plan Hypothyroidism: Continue levothyroxine Recent UTI: He is currently taking ciprofloxacin Attestations 2 Medical Necessity Statement*: Continue admission for assessment and management of multiple CVA, labile blood pressure. Diagnoses CVA (cerebral vascular accident) I63.9
[2023-11-18] VITALS (7 sets, daily range): BP systolic 120–140; BP diastolic 58–75; PULSE 62–77; RESP 17–19; TEMP 36.3–37; O2SAT 92–96
--- NOTE | 2023-11-18 02:48 | PC.NURSE ---
pt was incontinence this shift unable to measure out put
[2023-11-18] MEDS: levothyroxine 25 mcg Tablet PO (05:10)
[2023-11-18] MEDS: ciprofloxacin 500 mg Tablet PO ×2 (05:10→17:31)
[2023-11-18 05:44] LABS: Basophils # 0.1 10^3/uL (0.0-0.1); Basophils % 0.8 %; Eosinophils # 0.4 10^3/uL (0.0-0.8); Eosinophils % 4.1 %; Hematocrit 45.2 % (37-53); Lymphocytes % 32.9 %; Mean Corpuscular HGB Conc 32.3 g/dL (30-55); Mean Corpuscular Hemoglobin 30.4 pg (27-33); Mean Platelet Volume 9.9 fL (7.4-10.4); Monocytes % 10.9 %; Neutrophils # 4.58 10^3/uL (1.8-7.7); Nucleated Red Blood Cells % 0 %; Platelet Count 305 10^3/cmm (157-399); Red Blood Count 4.81 10^6/uL (3.85-5.65); Red Cell Distribution Width 13.5 % (12.1-15.1); White Blood Count 8.99 10^3/uL (3.29-11.43)
[2023-11-18 06:09] LABS: Anion Gap 13.6 (5-19); Blood Urea Nitrogen 15 mg/dL (8-23); Carbon Dioxide 25 mmol/L (22-29); Chloride 100 mmol/L (98-107); Creatinine Clr Calc Pharmacy 63.1933; Glucose 97 mg/dL (65-115); Osmolality Calculated 279 mOsm/kg (285-295); Potassium 4.6 mmol/L (3.5-5.1); Sodium 134 mmol/L (136-145)
[2023-11-18] MEDS: aspirin 81 mg EC Tablet 162 MG PO (08:20)
[2023-11-18] MEDS: enoxaparin 40 mg/0.4 mL Syringe SUBCUT (16:47)
[2023-11-18] MEDS: atorvastatin 40 mg Tablet PO (21:12)
--- NOTE | 2023-11-18 21:40 | P.PN_ITS ---
Subjective 2 Subjective: Stroke symptoms with some improvement. Denies any worsening symptoms. Working with therapy. Thirsty. Vitals/I&O/Wt Last Vital Signs Temp 98.6 F 11/18/23 19:24 Pulse 67 11/18/23 19:24 Resp 18 11/18/23 19:24 BP 120/68 11/18/23 19:24 Pulse Ox 95 11/18/23 19:24 O2 Del Method Room Air 11/18/23 16:00 11/18/23 11/18/23 11/18/23 06:59 14:59 22:59 Intake Total 120 / 1200 720 / 720 240 / 960 Balance 120 / 1200 720 / 720 240 / 960 Weight last 48 hrs Weight 94.007 kg Weight 95.39 kg Physical Exam 2 Narrative: Accompanied by his Const: COMMON NORMALS: patient oriented x3 and alert GENERAL APPEARANCE: c ooperative ORIENTATION/CONSCIOUSNESS: Yes awake HENMT: COMMON NORMALS: oropharynx normal Neck/C-Spine: COMMON NORMALS: no JVD Resp: COMMON NORMALS: normal respiratory effort and clear to auscultation bilaterally AUSCULTATION: clear to auscultation bilaterally Cardio: COMMON NORMALS: no JVD, regular rhythm, S1 normal heart sound present, S2 normal heart sound present and No murmurs present (Cardio) RHYTHM: regular rhythm HEART SOUNDS: S1 normal heart sound present and S2 normal heart sound present GI: COMMON NORMALS: Normal to inspection, nondistended, normoactive bowel sounds present, Soft to palpation and non-tender PALPATION: Yes Soft to palpation Extremity: COMMON NORMALS: no joint enlargement and no pedal edema Neuro: COMMON NORMALS: patient oriented x3 and moves all extremities S ENSORIUM/ORIENTATION: Yes alert OTHER: He is very hard of hearing but hears when spoken to loudly. Does take a bit of guidance with directions. No appreciable facial droop. He tracks horizontally. Moderate difficulty with FNF on the left. He cut the exam short there. Skin: COMMON NORMALS: no rashes or lesions noted GENERAL SKIN EXAM: no rashes or lesions noted Data 11/18/23 05:31 11/18/23 05:31 A&P Assessment and plan (1) CVA (cerebral vascular accident): Slight improvement in symptoms. Blood pressure with some fluctuation, up to 140/75, but overall not too bad, at 120/68. With multifocal strokes, monitor telemetry for possible embolic etiology with atrial fibrillation. Otherwise no intracardiac shunt. Will need monitor at discharge. Would benefit from rehabilitation, however, No case management present on the weekend, requesting consultation so that arrangements can be made for rehabilitation tomorrow. Continue aspiration precautions.Monitor for development of aspiration, pneumonitis, other complications. Reviewed vitals, CBC, BMP. Reviewed vitals, BP improved. Some fluctuation. May be difficult to manage/labile blood pressure. Possible episodic hypertension. Consider medication on as-needed basis. Certainly stress control will be an important factor in management as she has been going through some stressful times recently. Hold off adding antihypertensive for now. Monitor blood pressure. Reviewed A1c, lipid profile. Continue aspirin, statin. Reviewed echocardiogram, no intracardiac shunt noted. Normal EF, grade 1 diastolic dysfunction. Monitor on telemetry for possible A-fib with multiple strokes concern for possible embolic phenomenon. Does have significant cerebrovascular disease as discussed with family. Continue statin, aspirin. Will benefit from lifestyle modification as well. Follow-up with neurology. Continue PT, OT, ST. Would benefit from acute rehab. Multifocal cerebral vascular disease with bilateral cervical artery stenosis estimated at 55 to 60%, no occlusion. 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 High-grade stenosis near 70% left supraclinoid ICA. Mild atherosclerotic plaque left M1 segment but no thrombus or occlusion. Dilcia partially nonvisualization of left vertebral artery. May be developmental. Plan Hypothyroidism: Continue levothyroxine Recent UTI: He is currently taking ciprofloxacin Attestations 2 Medical Necessity Statement*: Continue admission for assessment and management of multiple CVA, labile blood pressure. and Moderate MDM includes number and complexity of problems actively addressed during encounter as documented Diagnoses CVA (cerebral vascular accident) I63.9
[2023-11-19 00:59] VITALS: BP 122/66; PULSE 66; RESP 16; O2SAT 96
[2023-11-19 05:00] VITALS: BP 130/62; PULSE 76; RESP 17; O2SAT 98
[2023-11-19 05:24] LABS: Basophils # 0.1 10^3/uL (0.0-0.1); Basophils % 0.8 %; Eosinophils # 0.4 10^3/uL (0.0-0.8); Eosinophils % 4.5 %; Hematocrit 43.3 % (37-53); Lymphocytes # 2.3 10^3/uL (0.8-4.8); Lymphocytes % 24.9 %; Mean Corpuscular HGB Conc 32.6 g/dL (30-55); Mean Corpuscular Hemoglobin 30.7 pg (27-33); Mean Corpuscular Volume 94.3 fl (82-101); Mean Platelet Volume 9.9 fL (7.4-10.4); Monocytes % 10.7 %; Neutrophils # 5.32 10^3/uL (1.8-7.7); Neutrophils % 58.8 %; Nucleated Red Blood Cells % 0 %; Platelet Count 277 10^3/cmm (157-399); Red Blood Count 4.59 10^6/uL (3.85-5.65); Red Cell Distribution Width 13.3 % (12.1-15.1); White Blood Count 9.06 10^3/uL (3.29-11.43)
[2023-11-19 05:43] LABS: Anion Gap 12.3 (5-19); Blood Urea Nitrogen 15 mg/dL (8-23); Calcium 8.6 mg/dL (8.5-10.5); Carbon Dioxide 24 mmol/L (22-29); Chloride 99 mmol/L (98-107); Creatinine Clr Calc Pharmacy 70.4352; Glucose 106 mg/dL (65-115); Osmolality Calculated 273 mOsm/kg (285-295); Potassium 4.3 mmol/L (3.5-5.1); Sodium 131 mmol/L (136-145)
[2023-11-19] MEDS: levothyroxine 25 mcg Tablet PO (06:06)
[2023-11-19] MEDS: ciprofloxacin 500 mg Tablet PO (06:06)
[2023-11-19 07:30] VITALS: BP 124/70; PULSE 65; RESP 18; TEMP 36.3; O2SAT 96
[2023-11-19] MEDS: aspirin 81 mg EC Tablet 162 MG PO (08:21)
--- NOTE | 2023-11-19 10:05 | PC.CHAP ---
Pastoral Care Encounter/Spiritual Assessment Type of Contact [] Declined field director visit [] Patient/Family/Request visit [] Outpatient visit [] Follow-up visit [] Physician referral [] Code/Alert [x] Routine visit [] Staff referral [] Actively dying [] Patient sleeping [x] Family support [] [] Out of room [] Palliative care [] [] Receiving care in room [] Pre-surgical visit [] Trauma [] Long length of stay [] ICU visit [] Other: Relational/Emotional Strength [] Patient feels connected with others/family/visitors/staff [] Distress [] Loneliness/isolation [] Abandonment Spirituality of Patient [x] Person of Tena [] Attends Baptism of their Tena [] Believes in Prayer [x] Reads Bible or Mormon materials [] There are 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] Prayer [x] Active listening [] Non-anxious presence [x] Spiritual/emotional support [] Crisis/trauma care [] Spiritual counseling [] Bereavement support [] Provided bereavement packet [] Provided Bible/devotional materials [] Provided toy/stuffed animal, coloring book to patient or family member [] Provided Communion [] Anointing/[place] [] Salvation [x] Completed spiritual assessment [] Other: Impact on Illness or Injury [] Angry [] Fearful [] Anxious [] Often cries [] Exhaustion [] Unable to work [] Unable to attend methodist [] Unable to walk/stand [] Unable to read [] Unable to drive [] Unable to eat/drink [] Unable to sleep [] Unable to be with family [] Patient intubated [] Other: Summary plus 2 Time spent with patient 10min
[2023-11-19 11:59] VITALS: BP 139/82; PULSE 71; RESP 17; TEMP 36.5; O2SAT 95
[2023-11-19] MEDS: cyanocobalamin 1,000 mcg/mL SDV 1000 MCG IM (12:23)
[2023-11-19 16:00] VITALS: BP 155/72; PULSE 67; RESP 16; TEMP 36.6; O2SAT 94
[2023-11-19] MEDS: enoxaparin 40 mg/0.4 mL Syringe SUBCUT (16:37)
--- NOTE | 2023-11-19 16:50 | P.PN_ITS ---
Subjective 2 Subjective: Hospital course, labs appreciated. Seen with family at bedside. Patient worked with physical therapy. Able to tolerate diet. As per the patient is slightly tired today. Denies any nausea vomiting, headache. Blood pressure seems to be controlled for now. Vitals/I&O/Wt Last Vital Signs Temp 97.9 F 11/19/23 16:00 Pulse 67 11/19/23 16:00 Resp 16 11/19/23 16:00 BP 155/72 11/19/23 16:00 Pulse Ox 94 11/19/23 16:00 O2 Del Method Room Air 11/19/23 07:30 11/19/23 11/19/23 11/19/23 06:59 14:59 22:59 Intake Total 240 / 1320 360 / 360 Balance 240 / 1320 360 / 360 Weight last 48 hrs Weight 92.221 kg Weight 94.007 kg Physical Exam 2 Narrative: Accompanied by his Const: COMMON NORMALS: patient oriented x3 and alert GENERAL APPEARANCE: c ooperative ORIENTATION/CONSCIOUSNESS: Yes awake HENMT: COMMON NORMALS: oropharynx normal Neck/C-Spine: COMMON NORMALS: no JVD Resp: COMMON NORMALS: normal respiratory effort and clear to auscultation bilaterally AUSCULTATION: clear to auscultation bilaterally Cardio: COMMON NORMALS: no JVD, regular rhythm, S1 normal heart sound present, S2 normal heart sound present and No murmurs present (Cardio) RHYTHM: regular rhythm HEART SOUNDS: S1 normal heart sound present and S2 normal heart sound present GI: COMMON NORMALS: Normal to inspection, nondistended, normoactive bowel sounds present, Soft to palpation and non-tender PALPATION: Yes Soft to palpation Extremity: COMMON NORMALS: no joint enlargement and no pedal edema Neuro: COMMON NORMALS: patient oriented x3 and moves all extremities S ENSORIUM/ORIENTATION: Yes alert OTHER: He is very hard of hearing but hears when spoken to loudly. Does take a bit of guidance with directions. No appreciable facial droop. He tracks horizontally. Tired Appearing. Skin: COMMON NORMALS: no rashes or lesions noted GENERAL SKIN EXAM: no rashes or lesions noted Data 11/19/23 05:05 11/19/23 05:05 A&P Assessment and plan (1) CVA (cerebral vascular accident): Slight improvement in symptoms. Blood pressure with some fluctuation, up to 140/75, but overall not too bad, at 120/68. With multifocal strokes, monitor telemetry for possible embolic etiology with atrial fibrillation. Otherwise no intracardiac shunt. Will need monitor at discharge. 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 High-grade stenosis near 70% left supraclinoid ICA. Mild atherosclerotic plaque left M1 segment but no thrombus or occlusion. partially nonvisualization of left vertebral artery. May be developmental. Plan Stroke: Continue with PT/OT and speech therapy. Advance diet accordingly. Continue with aspirin, statin. Appreciate A1c, lipid panel. Switch to aspirin 81 mg daily, continue with atorvastatin. Appreciate recent vitamin B12 levels. Start on daily vitamin B12 IM 1000 mcg shots. Goal blood pressure less than 140/90 mmHg. Blood pressure stable for now. For now we will start on amlodipine 2.5 mg daily. Will uptitrate as for goal blood pressures. Appreciated Echocardiogram. No concerns for afib on tele. Continue with home dose of levothyroxine. Appreciate TSH. Discharge plan: Discussed in detail with the patient, patient's /DPOA at bedside. She would want patient to be transferred to acute rehab if possible otherwise she has requested for 1 particular SNF near her house. If not able to get to does she would rather take patient home with home health. CODE STATUS: Discussed in detail with the DPOA/. She states she struggled with making that decision with her first and would not trust herself to make that decision again. She states patient in the past has wished for DNR/DNI. CODE STATUS changed to DNR/DNI. Diet as per speech therapy. Heparin 5000 every 12 hourly for DVT prophylaxis. Famotidine for PUD prophylaxis. Attestations 2 Medical Necessity Statement*: Requires further hospitalization for post CVA care while safe discharge planning is sought. Diagnoses CVA (cerebral vascular accident) I63.9
[2023-11-19 19:34] VITALS: BP 133/74; PULSE 76; RESP 18; TEMP 37; O2SAT 95
[2023-11-19] MEDS: atorvastatin 40 mg Tablet PO (21:30)
[2023-11-20] VITALS (7 sets, daily range): BP systolic 111–152; BP diastolic 60–84; PULSE 70–99; RESP 16–18; TEMP 36.3–36.6; O2SAT 94–96
[2023-11-20] MEDS: levothyroxine 25 mcg Tablet PO (05:35)
[2023-11-20 05:49] LABS: Basophils # 0.1 10^3/uL (0.0-0.1); Eosinophils # 0.4 10^3/uL (0.0-0.8); Eosinophils % 4.8 %; Hematocrit 46.3 % (37-53); Lymphocytes # 2.5 10^3/uL (0.8-4.8); Lymphocytes % 28.4 %; Mean Corpuscular HGB Conc 32.4 g/dL (30-55); Mean Corpuscular Hemoglobin 30.9 pg (27-33); Mean Corpuscular Volume 95.5 fl (82-101); Mean Platelet Volume 10.1 fL (7.4-10.4); Monocytes # 1.1 10^3/uL (0.2-0.9); Monocytes % 12.4 %; Neutrophils # 4.61 10^3/uL (1.8-7.7); Neutrophils % 53.1 %; Nucleated Red Blood Cells % 0 %; Platelet Count 275 10^3/cmm (157-399); Red Blood Count 4.85 10^6/uL (3.85-5.65); Red Cell Distribution Width 13.2 % (12.1-15.1)
[2023-11-20 06:38] LABS: Alanine Aminotransferase 23 U/L (0-41); Albumin Level 3.5 g/dL (3.5-5.2); Alkaline Phosphatase 92 U/L (40-130); Anion Gap 13.3 (5-19); Aspartate Amino Transferase 32 U/L (0-40); Blood Urea Nitrogen 13 mg/dL (8-23); Calcium 8.9 mg/dL (8.5-10.5); Carbon Dioxide 23 mmol/L (22-29); Chloride 102 mmol/L (98-107); Creatinine Clr Calc Pharmacy 70.4352; Globulin 3.4 g/dL (1.3-4.6); Glucose 94 mg/dL (65-115); Osmolality Calculated 278 mOsm/kg (285-295); Potassium 4.3 mmol/L (3.5-5.1); Sodium 134 mmol/L (136-145); Total Bilirubin 0.5 mg/dL (0.15-1.2); Total Protein 6.9 g/dL (6.6-8.7)
[2023-11-20] MEDS: aspirin 81 mg EC Tablet PO (08:43)
[2023-11-20] MEDS: cyanocobalamin 1,000 mcg/mL SDV 1000 MCG IM (08:43)
[2023-11-20] MEDS: enoxaparin 40 mg/0.4 mL Syringe SUBCUT (15:30)
[2023-11-20] MEDS: acetaminophen 325 mg Tablet 650 MG PO (16:16)
--- NOTE | 2023-11-20 16:37 | P.PN_ITS ---
Subjective 2 Subjective: No acute vents overnight. Today was seen sitting up in the chair. Family at bedside. Denies any nausea vomiting, headache. Patient thinks he is getting stronger. Tolerating diet. Remains on room air. Vitals/I&O/Wt Last Vital Signs Temp 97.8 F 11/20/23 12:00 Pulse 87 11/20/23 15:47 Resp 16 11/20/23 15:47 BP 114/64 11/20/23 15:47 Pulse Ox 95 11/20/23 15:47 O2 Del Method Room Air 11/20/23 15:47 11/20/23 11/20/23 11/20/23 06:59 14:59 22:59 Intake Total 120 / 720 360 / 360 Balance 120 / 720 360 / 360 Weight last 48 hrs Weight 92.221 kg Weight 92.221 kg Physical Exam 2 Narrative: Accompanied by his Const: COMMON NORMALS: patient oriented x3 and alert GENERAL APPEARANCE: c ooperative ORIENTATION/CONSCIOUSNESS: Yes awake HENMT: COMMON NORMALS: oropharynx normal Neck/C-Spine: COMMON NORMALS: no JVD Resp: COMMON NORMALS: normal respiratory effort and clear to auscultation bilaterally AUSCULTATION: clear to auscultation bilaterally Cardio: COMMON NORMALS: no JVD, regular rhythm, S1 normal heart sound present, S2 normal heart sound present and No murmurs present (Cardio) RHYTHM: regular rhythm HEART SOUNDS: S1 normal heart sound present and S2 normal heart sound present GI: COMMON NORMALS: Normal to inspection, nondistended, normoactive bowel sounds present, Soft to palpation and non-tender PALPATION: Yes Soft to palpation Extremity: COMMON NORMALS: no joint enlargement and no pedal edema Neuro: COMMON NORMALS: patient oriented x3 and moves all extremities S ENSORIUM/ORIENTATION: Yes alert OTHER: He is very hard of hearing but hears when spoken to loudly. Does take a bit of guidance with directions. No appreciable facial droop. He tracks horizontally. Tired Appearing. Skin: COMMON NORMALS: no rashes or lesions noted GENERAL SKIN EXAM: no rashes or lesions noted Data 11/20/23 05:14 11/20/23 05:14 A&P Assessment and plan (1) CVA (cerebral vascular accident): Slight improvement in symptoms. Blood pressure with some fluctuation, up to 140/75, but overall not too bad, at 120/68. With multifocal strokes, monitor telemetry for possible embolic etiology with atrial fibrillation. Otherwise no intracardiac shunt. Will need monitor at discharge. 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 High-grade stenosis near 70% left supraclinoid ICA. Mild atherosclerotic plaque left M1 segment but no thrombus or occlusion. partially nonvisualization of left vertebral artery. May be developmental. Plan Stroke: Continue with PT/OT and speech therapy. Advance diet accordingly. Continue with aspirin, statin. Appreciate A1c, lipid panel. Switch to aspirin 81 mg daily, continue with atorvastatin. Appreciate recent vitamin B12 levels. Start on daily vitamin B12 IM 1000 mcg shots. Goal blood pressure less than 140/90 mmHg. Blood pressure stable for now. For now we will start on amlodipine 2.5 mg daily. Will uptitrate as for goal blood pressures. Appreciated Echocardiogram. No concerns for afib on tele. Hypothyroidism: TSH is normal. Patient is on levothyroxine of 25 mcg daily. is concerned that patient's symptoms have been getting worse since he was started on levothyroxine and is concerned that stroke is also because of levothyroxine. We discussed stroke is usually not side effect of the medication and the fact that his numbers are normal on the medication needs that he possibly needs to go he is at a very low-dose of medication and if they are very concerned they can try stopping the medication and rechecking thyroid levels in few months. Plan for the day: Continue with therapy. Holding off on levothyroxine as above. Awaiting discharge planning. Discharge plan: Discussed in detail with the patient, patient's /DPOA at bedside. She would want patient to be transferred to acute rehab if possible otherwise she has requested for 1 particular SNF near her house. If not able to get to does she would rather take patient home with home health. CODE STATUS: Discussed in detail with the DPOA/. She states she struggled with making that decision with her first and would not trust herself to make that decision again. She states patient in the past has wished for DNR/DNI. CODE STATUS changed to DNR/DNI. Diet as per speech therapy. Heparin 5000 every 12 hourly for DVT prophylaxis. Famotidine for PUD prophylaxis. Attestations 2 Medical Necessity Statement*: Requires further hospitalization while safe discharge planning is sought Diagnoses CVA (cerebral vascular accident) I63.9
[2023-11-20] MEDS: atorvastatin 40 mg Tablet PO (21:22)
[2023-11-21 04:00] VITALS: BP 133/75; PULSE 69; RESP 16; TEMP 36.5; O2SAT 95
[2023-11-21 07:51] VITALS: BP 151/87; PULSE 83; RESP 18; TEMP 36.7; O2SAT 96
[2023-11-21] MEDS: cyanocobalamin 1,000 mcg/mL SDV 1000 MCG IM (08:10)
[2023-11-21] MEDS: aspirin 81 mg EC Tablet PO (08:10)
--- NOTE | 2023-11-21 11:22 | PC.SOCIAL ---
Pg 2 IMM Explained to pt & Pg 2 IMM. No questions voiced. Provided pt a copy. Initialed, dated, & timed a copy & placed in chart.
[2023-11-21 12:00] VITALS: BP 141/90; PULSE 84; RESP 16; TEMP 36.8; O2SAT 96
--- NOTE | 2023-11-21 14:21 | P.PN_ITS ---
Subjective 2 Subjective: Status quo. No new complaints. Working with physical therapy. Walking down the jordan today. Vitals/I&O/Wt Last Vital Signs Temp 98.3 F 11/21/23 12:00 Pulse 84 11/21/23 12:00 Resp 16 11/21/23 12:00 BP 141/90 11/21/23 12:00 Pulse Ox 96 11/21/23 12:00 O2 Del Method Room Air 11/21/23 12:00 11/20/23 11/21/23 11/21/23 22:59 06:59 14:59 Intake Total 70 / 430 0 / 430 720 / 720 Output Total 50 / 50 Balance 70 / 430 -50 / 380 720 / 720 Weight last 48 hrs Weight 93.304 kg Weight 92.221 kg Physical Exam 2 Narrative: Accompanied by his Const: COMMON NORMALS: patient oriented x3 and alert GENERAL APPEARANCE: c ooperative ORIENTATION/CONSCIOUSNESS: Yes awake HENMT: COMMON NORMALS: oropharynx normal Neck/C-Spine: COMMON NORMALS: no JVD Resp: COMMON NORMALS: normal respiratory effort and clear to auscultation bilaterally AUSCULTATION: clear to auscultation bilaterally Cardio: COMMON NORMALS: no JVD, regular rhythm, S1 normal heart sound present, S2 normal heart sound present and No murmurs present (Cardio) RHYTHM: regular rhythm HEART SOUNDS: S1 normal heart sound present and S2 normal heart sound present GI: COMMON NORMALS: Normal to inspection, nondistended, normoactive bowel sounds present, Soft to palpation and non-tender PALPATION: Yes Soft to palpation Extremity: COMMON NORMALS: no joint enlargement and no pedal edema Neuro: COMMON NORMALS: patient oriented x3 and moves all extremities S ENSORIUM/ORIENTATION: Yes alert OTHER: He is very hard of hearing but hears when spoken to loudly. Does take a bit of guidance with directions. No appreciable facial droop. He tracks horizontally. Tired Appearing. Skin: COMMON NORMALS: no rashes or lesions noted GENERAL SKIN EXAM: no rashes or lesions noted Data 11/20/23 05:14 11/20/23 05:14 A&P Assessment and plan (1) CVA (cerebral vascular accident): Slight improvement in symptoms. Blood pressure with some fluctuation, up to 140/75, but overall not too bad, at 120/68. With multifocal strokes, monitor telemetry for possible embolic etiology with atrial fibrillation. Otherwise no intracardiac shunt. Will need monitor at discharge. 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 High-grade stenosis near 70% left supraclinoid ICA. Mild atherosclerotic plaque left M1 segment but no thrombus or occlusion. partially nonvisualization of left vertebral artery. May be developmental. Plan Stroke: Continue with PT/OT and speech therapy. Advance diet accordingly. Continue with aspirin, statin. Appreciate A1c, lipid panel. Switch to aspirin 81 mg daily, continue with atorvastatin. Appreciate recent vitamin B12 levels. Start on daily vitamin B12 IM 1000 mcg shots. Goal blood pressure less than 140/90 mmHg. Blood pressure stable for now. For now we will start on amlodipine 2.5 mg daily. Will uptitrate as for goal blood pressures. Appreciated Echocardiogram. No concerns for afib on tele. Hypothyroidism: TSH is normal. Patient is on levothyroxine of 25 mcg daily. is concerned that patient's symptoms have been getting worse since he was started on levothyroxine and is concerned that stroke is also because of levothyroxine. We discussed stroke is usually not side effect of the medication and the fact that his numbers are normal on the medication needs that he possibly needs to go he is at a very low-dose of medication and if they are very concerned they can try stopping the medication and rechecking thyroid levels in few months. Plan for the day: Continue with therapy. Awaiting placement. wants levothyroxine to be restarted today. Wants to think about it more before stopping levothyroxine and will consider it as an outpatient. Encouraged strongly again against stopping medication. Discharge plan: Discussed in detail with the patient, patient's /DPOA at bedside. She would want patient to be transferred to acute rehab if possible otherwise she has requested for 1 particular SNF near her house. If not able to get to does she would rather take patient home with home health. CODE STATUS: Discussed in detail with the DPOA/. She states she struggled with making that decision with her first and would not trust herself to make that decision again. She states patient in the past has wished for DNR/DNI. CODE STATUS changed to DNR/DNI. Diet as per speech therapy. Heparin 5000 every 12 hourly for DVT prophylaxis. Famotidine for PUD prophylaxis. Attestations 2 Medical Necessity Statement*: Safe discharge planning for rehab in setting of recent CVA Coding Level of Care Code 63201 Straight Forward/Low MDM includes number and complexity of problems actively addressed during encounter, amount and/or complexity of data reviewed/ordered [ previous or external records, resulted lab(s)/test(s), ordered lab(s)/test(s), independent historian, independent test interpretation and other healthcare professional discussion] and described risk of complication, morbidity or mortality of management as documented Diagnoses CVA (cerebral vascular accident) I63.9
[2023-11-21] MEDS: enoxaparin 40 mg/0.4 mL Syringe SUBCUT (15:10)
[2023-11-21 16:00] VITALS: BP 130/75; PULSE 73; RESP 16; TEMP 36.7; O2SAT 95
[2023-11-21 19:31] VITALS: BP 123/73; PULSE 76; RESP 17; TEMP 36.8; O2SAT 93
[2023-11-21] MEDS: atorvastatin 40 mg Tablet PO (20:14)
[2023-11-22] VITALS: BP 118/59; PULSE 73; RESP 17; TEMP 37.6; O2SAT 98
[2023-11-22 04:00] VITALS: BP 136/73; PULSE 72; RESP 16; TEMP 37.1; O2SAT 93
[2023-11-22 05:55] LABS: Basophils # 0.1 10^3/uL (0.0-0.1); Basophils % 0.7 %; Eosinophils # 0.3 10^3/uL (0.0-0.8); Eosinophils % 3.9 %; Hematocrit 45.2 % (37-53); Lymphocytes # 2.4 10^3/uL (0.8-4.8); Lymphocytes % 27.5 %; Mean Corpuscular Hemoglobin 30.4 pg (27-33); Mean Corpuscular Volume 92.2 fl (82-101); Mean Platelet Volume 10.6 fL (7.4-10.4); Monocytes % 11.4 %; Neutrophils # 4.92 10^3/uL (1.8-7.7); Neutrophils % 56.3 %; Nucleated Red Blood Cells % 0 %; Platelet Count 251 10^3/cmm (157-399); Red Cell Distribution Width 13.2 % (12.1-15.1); White Blood Count 8.74 10^3/uL (3.29-11.43)
[2023-11-22] MEDS: levothyroxine 25 mcg Tablet PO (05:55)
[2023-11-22 06:34] LABS: Alanine Aminotransferase 29 U/L (0-41); Albumin Level 3.5 g/dL (3.5-5.2); Alkaline Phosphatase 94 U/L (40-130); Anion Gap 16.6 (5-19); Aspartate Amino Transferase 37 U/L (0-40); Blood Urea Nitrogen 15 mg/dL (8-23); Calcium 8.7 mg/dL (8.5-10.5); Carbon Dioxide 21 mmol/L (22-29); Chloride 102 mmol/L (98-107); Creatinine Clr Calc Pharmacy 70.1661; Globulin 3.4 g/dL (1.3-4.6); Glucose 98 mg/dL (65-115); Osmolality Calculated 281 mOsm/kg (285-295); Potassium 4.6 mmol/L (3.5-5.1); Sodium 135 mmol/L (136-145); Total Bilirubin 0.6 mg/dL (0.15-1.2); Total Protein 6.9 g/dL (6.6-8.7)
[2023-11-22 07:26] VITALS: BP 126/77; PULSE 69; RESP 17; TEMP 36.6; O2SAT 97
[2023-11-22] MEDS: acetaminophen 325 mg Tablet 650 MG PO (08:31)
[2023-11-22] MEDS: aspirin 81 mg EC Tablet PO (08:32)
[2023-11-22] MEDS: cyanocobalamin 1,000 mcg/mL SDV 1000 MCG IM (08:32)
[2023-11-22 09:00] VITALS: BP 126/77; PULSE 69; RESP 17; TEMP 36.6
[2023-11-22] MEDS: diclofenac 1% Topical Gel 100 gm 1 APPLIC TOPICAL (11:17)
[2023-11-22 11:23] VITALS: BP 132/80; PULSE 67; RESP 17; TEMP 36.6; O2SAT 95
--- NOTE | 2023-11-22 13:05 | P.DS_ITS ---
Discharge Providers Date of Admission: 11/18/23 10:17 Date of Discharge: November 22, 2023 Attending Provider at Admission: Herson Cavazos Attending Provider at Discharge: Harlan Moore MD Primary Care Provider: Nicole Prabhakar NP Diagnoses at Discharge Discharge Diagnosis (1) CVA (cerebral vascular accident): Status: Acute Reason for Visit Reason for Visit: rt sided weakness Brief History: As per HPI: 88-year-old gentleman with hypothyroidis m, BPH, was brought in for evaluation to ED due to concern of CVA, family stated last known well was around 1-2 AM when he was eating and able to use his right arm. He then went back to sleep. Later morning when he woke up he could not lift his right arm and experiencing weakness in the right leg as well. Symptoms are accompanied also by numbness on the right side. CT of the head was obtained without bleeding, with remote left parietal infarct, large remote right parietal occipital infarct, advanced small vessel ischemic disease and prior lacunar infarcts, but he was outside of the window for tPA. Per family he does not have history of dementia, normally his functional, ambulates independently. CT angiogram head and neck was obtained study with some compromised by motion, bilateral cervical artery stenosis estimated at 55 to 60%, no occlusion. 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 High-grade stenosis near 70% left supraclinoid ICA. Mild atherosclerotic plaque left M1 segment but no thrombus or occlusion. Dilcia partially nonvisualization of left vertebral artery. May be developmental. He denies any improvement in his symptoms. He is very hard of hearing, does hear when spoken to loudly. Most history obtained from his and daughter who are at bedside. Neither patient nor family were not aware of history of prior stroke and he has not had previous focal deficits. He is a non-smoker, his states his blood pressure usually runs 120-124 systolic when they check it at home. He has been having a lot of stress recently with his sons (nonbiological son's from his prior marriage) reportedly causing tension in the family. Patient and his and daughter request for no other visitors unless they are approved. Hospital Course Hospital Course Patient was admitted to the hospital further evaluation and management of CVA. He was seen by PT/OT and speech therapy during hospitalization and continued to participate well with therapy. His hospitalization was otherwise unremarkable. Patient has consistently improved but very gradually. Safe discharge plan were discussed in detail with the patient and her family at bedside who wanted the patient to go to acute rehab if possible. He has been discharged in hemodynamically stable condition to acute rehab for further rehabilitation for CVA. Physical Exam Narrative: Accompanied by his Const: COMMON NORMALS: patient oriented x3 and alert GENERAL APPEARANCE: cooperative ORIENTATION/CONSCIOUSNESS: Yes awake HENMT: COMMON NORMALS: oropharynx normal Neck/C-Spine: COMMON NORMALS: no JVD Resp: COMMON NORMALS: normal respiratory effort and clear to auscultation bilaterally AUSCULTATION: clear to auscultation bilaterally Cardio: COMMON NORMALS: no JVD, regular rhythm, S1 normal heart sound present, S2 normal heart sound present and No murmurs present (Cardio) RHYTHM: regular rhythm HEART SOUNDS: S1 normal heart sound present and S2 normal heart sound present GI: COMMON NORMALS: Normal to inspection, nondistended, normoactive bowel sounds present, Soft to palpation and non-tender PALPATION: Yes Soft to palpation Extremity: COMMON NORMALS: no joint enlargement and no pedal edema Neuro: COMMON NORMALS: patient oriented x3 and moves all extremities SENSORIUM/ORIENTATION: Yes alert OTHER: He is very hard of hearing but hears when spoken to loudly. Does take a bit of guidance with directions. No appreciable facial droop. He tracks horizontally. Tired Appearing. Skin: COMMON NORMALS: no rashes or lesions noted GENERAL SKIN EXAM: no rashes or lesions noted Discharge Data Studies Completed and Pending Completed Studies During Hospitalization Category Date Time Status CT head thrombolytic [id number] Stat Cat Scan 11/16/23 10:52 Completed CTA head neck [CT angio headneck* [id number]] Stat Cat Scan 11/16/23 13:12 Completed CV. echo w/w bubble cont [id number] Routine Ultrasound 11/16/23 15:38 Completed Echocardiogam: CONCLUSIONS Normal left ventricular size and systolic function, EF 59%. Mild concentric left-ventricular hypertrophy.Grade I/IV diastolic dysfunction (abnormal relaxation filling pattern), normal to mildly elevated filling pressures. Trace mitral valve regurgitation. Thickened aortic valve. Trace to mild aortic valve regurgitation. Mild pulmonary valve regurgitation. No intracardiac shunt by color-flow Doppler examination or by saline contrast injection No similar previous studies are available for comparision. Laboratory Results WBC 8.74 10^3/uL (3.29-11.43) 11/22/23 05:31 RBC 4.90 10^6/uL (3.85-5.65) 11/22/23 05:31 Hgb 14.90 g/dL (11.27-16.99) 11/22/23 05:31 Hct 45.2 % (37-53) 11/22/23 05:31 MCV 92.2 fl (82-101) 11/22/23 05:31 MCH 30.4 pg (27-33) 11/22/23 05:31 MCHC 33.0 g/dL (30-55) 11/22/23 05:31 RDW 13.2 % (12.1-15.1) 11/22/23 05:31 Plt Count 251 10^3/cmm (157-399) 11/22/23 05:31 MPV 10.6 fL (7.4-10.4) H 11/22/23 05:31 Neut % (Auto) 56.3 % 11/22/23 05:31 Lymph % (Auto) 27.5 % 11/22/23 05:31 [place] % (Auto) 11.4 % 11/22/23 05:31 Eos % (Auto) 3.9 % 11/22/23 05:31 Baso % (Auto) 0.7 % 11/22/23 05:31 Neut # (Auto) 4.92 10^3/uL (1.8-7.7) 11/22/23 05:31 Lymph # (Auto) 2.4 10^3/uL (0.8-4.8) 11/22/23 05:31 [place] # (Auto) 1.0 10^3/uL (0.2-0.9) H 11/22/23 05:31 Eos # (Auto) 0.3 10^3/uL (0.0-0.8) 11/22/23 05:31 Baso # (Auto) 0.1 10^3/uL (0.0-0.1) 11/22/23 05:31 Nucleated RBC % (auto) 0 % 11/22/23 05:31 Nucleated RBCs # 0.0 /100WBC 11/22/23 05:31 PT 13.20 SECONDS (12.1-14.9) 11/16/23 11:26 INR 0.97 (0.8-1.2) 11/16/23 11:26 APTT 32.4 SECONDS (23.9-36.7) 11/16/23 11:26 Sodium 135 mmol/L (136-145) L 11/22/23 05:31 Potassium 4.6 mmol/L (3.5-5.1) 11/22/23 05:31 Chloride 102 mmol/L (98-107) 11/22/23 05:31 Carbon Dioxide 21 mmol/L (22-29) L 11/22/23 05:31 Anion Gap 16.6 (5-19) 11/22/23 05:31 BUN 15 mg/dL (8-23) 11/22/23 05:31 Creatinine 0.7 mg/dL (0.7-1.2) 11/22/23 05:31 GFR Calculation Not Reportable 11/22/23 05:31 Glucose 98 mg/dL (65-115) 11/22/23 05:31 Estimat Average Glucose 111 11/17/23 04:23 Hemoglobin A1c 5.5 % (4.0-6.0) 11/17/23 04:23 Calculated Osmolality 281 mOsm/kg (285-295) L 11/22/23 05:31 Calcium 8.7 mg/dL (8.5-10.5) 11/22/23 05:31 Total Bilirubin 0.6 mg/dL (0.15-1.2) 11/22/23 05:31 AST 37 U/L (0-40) 11/22/23 05:31 ALT 29 U/L (0-41) 11/22/23 05:31 Alkaline Phosphatase 94 U/L (40-130) 11/22/23 05:31 Troponin T Baseline 18 ng/L (0-15) H 11/16/23 11:26 Troponin T 120 Minute 19.71 ng/L (0-15) H 11/16/23 13:18 Delta Troponin T 1.71 ABS# (0-10) 11/16/23 13:18 Troponin T Hi Sens 6Hr 25.77 ng/L (0-15) H 11/16/23 17:40 Troponin T Hi Sens 6Hr Delta 7.77 ng/L (0-12) 11/16/23 17:40 Total Protein 6.9 g/dL (6.6-8.7) 11/22/23 05:31 Albumin 3.5 g/dL (3.5-5.2) 11/22/23 05:31 Globulin 3.4 g/dL (1.3-4.6) 11/22/23 05:31 Triglycerides 89 mg/dL (0-150) 11/17/23 04:23 Cholesterol 171 mg/dL (0-200) 11/17/23 04:23 LDL Cholesterol, Calc 112 mg/dL (50-129) 11/17/23 04:23 HDL Cholesterol 41 mg/dL (60-100) L 11/17/23 04:23 LDL/HDL Ratio 2.73 RATIO (0.00-3.22) 11/17/23 04:23 Cholesterol/HDL Ratio 4.17 mg/dL (1.0-5.00) 11/17/23 04:23 Urine Color Light yellow (Yellow) 11/16/23 13:10 Urine Appearance Clear (CLEAR) 11/16/23 13:10 Urine pH 6 (5-7) 11/16/23 13:10 Ur Specific [place] 1.005 (1.005-1.030) 11/16/23 13:10 Urine Protein Neg (Negative) 11/16/23 13:10 Urine Glucose (UA) Norm (Normal) 11/16/23 13:10 Urine Ketones Negative (Negative) 11/16/23 13:10 Urine Blood 2+ (Negative) H 11/16/23 13:10 Urine Nitrate Negative (Negative) 11/16/23 13:10 Urine Bilirubin Neg (Negative) 11/16/23 13:10 Urine Urobilinogen Norm mg/dL (Negative) 11/16/23 13:10 Ur Leukocyte Esterase Negative (Negative) 11/16/23 13:10 Urine RBC 0-4 /hpf (0-2) H 11/16/23 13:10 Urine WBC 0-4 /hpf (0-5) H 11/16/23 13:10 Ur Squamous Epith Cells 0-4 /hpf (0-5) H 11/16/23 13:10 Amorphous Sediment Not Reportable 11/16/23 13:10 Urine Bacteria Trace /hpf (NONE) 11/16/23 13:10 Urine Opiates Screen Negative ng/mL (Negative) 11/16/23 13:10 Ur Barbiturates Screen Negative ng/mL (Negative) 11/16/23 13:10 Ur Phencyclidine Scrn Negative ng/mL (Negative) 11/16/23 13:10 Ur Amphetamines Screen Negative ng/mL (Negative) 11/16/23 13:10 U Benzodiazepines Scrn Negative ng/mL (Negative) 11/16/23 13:10 Urine Cocaine Screen Negative ng/mL (Negative) 11/16/23 13:10 U Marijuana (THC) Screen Negative ng/mL (Negative) 11/16/23 13:10 Vitals Last Vital Signs Temp 97.8 F 11/22/23 11:23 Pulse 67 11/22/23 11:23 Resp 17 11/22/23 11:23 BP 132/80 11/22/23 11:23 Pulse Ox 95 11/22/23 11:23 O2 Del Method Room Air 11/22/23 11:23 Discharge Plan Discharge Patient Disposition: Home Condition: Stable Prescriptions: New atorvastatin 40 mg Tablet 40 mg PO BEDTIME Qty: 30 0RF aspirin 81 mg Tablet,Delayed Release (Dr/Ec) 81 mg PO DAILY Qty: 30 0RF Continued acetaminophen 500 mg Tablet 500 mg PO .UP TO BID levothyroxine 25 mcg tablet 25 mcg PO QAM Changed cyanocobalamin (vitamin B-12) 1,000 mcg capsule 2,000 mcg PO QAM Qty: 60 0RF Discontinued ciprofloxacin HCl 500 mg tablet 500 mg PO Q12H Rx Instructions: FOR 7 DAYS (RX FILLED 11/12/23) Discharge Orders: Discharge Order (Routine); Ordered 11/22/23 Ordered By: Harlan Moore Referrals: Nicole Prabhakar NP [Primary Care Provider] - 12/04/23 8:00 am () All Cesar MD [Physician] - 2 weeks Discharge Diet: Advance as tolerated and As Directed Discharge Activity: Resume usual activity and Increase activity as tolerated Patient Instructions: Opioid Safety Activity Restrictions/Additional Instructions: Dysphagia level 6 diet. Discharge Attestations Time Spent in Discharge Care*: greater than 30 min Specific Discharge Activities: educating patient, educating and/or supporting family/caregiver, discussing with pcp/other providers, discussing with case management assistant/social workers/dc planners, documenting/other paperwork and evaluating patient/reviewing data Status at Discharge: Cognitive status at discharge: mildly impaired cognition , Behavioral status at discharge: cooperative , Functional status at discharge: uses cane/walker , Overall status at discharge: patient is progressing back to baseline Quality Metrics Clinical Quality Measures [ Cerebrovascular Accident { Contraindication to Antithrombotic: None; antithrombotic prescribed; Contraindication to Anticoagulation: Overlap treatment not indicated; Contraindication to Statin: None; Statin prescribed; Contraindication to tPA: Treatment not indicated;}] Coding Level of Care Code 84339 Total time (in minutes) for Discharge: 60 Diagnoses CVA (cerebral vascular accident) I63.9
[2023-11-22 15:13] VITALS: BP 126/80; PULSE 68; RESP 16; TEMP 36.6; O2SAT 97
== END 2023-11-22 15:44 | DRG 65 ==
LOC: ER 12:14 → MEDSURG 15:11
PROVIDERS: Admitting Provider Internal Medicine; Emergency Provider Family Medicine; PCP Nurse Practitioner Family; Visit Provider Student in an Organized Health Care Education/Training Program
DX: I63.9 Cerebral infarction, unspecified (principal); G81.94 Hemiplegia, unspecified affecting left nondominant side; R20.2 Paresthesia of skin; E03.9 Hypothyroidism, unspecified; N40.0 Benign prostatic hyperplasia without lower urinary tract symptoms; Z86.73 Personal history of transient ischemic attack (TIA), and cerebral infarction without residual deficits; I65.22 Occlusion and stenosis of left carotid artery
CPT/HCPCS: 36415; 70450; 70496; 70498; 80048; 80053; 80061; 80306; 81001; 83036; 84484; 85025; 85610; 85730; 92507; 92526; 92610; 93005; 96372; 97110; 97112; 97116; 97161; 97166; 97530; 97535; 99285; C8929; G0378; J1650; J3420; Q9967

== ENCOUNTER 2023-12-11 06:00 | Outpatient (RCR) | payer MEDICARE, SELFPAY | END 2024-01-01 23:59 | disposition home or self-care (01) | LOC: MPS 06:00 | PROVIDERS: Visit Provider Internal Medicine | DX: R26.81 Unsteadiness on feet (principal); I69.815 Cognitive social or emotional deficit following other cerebrovascular disease | CPT/HCPCS: 92507; 92523; 97110; 97116; 97162 ==

== ENCOUNTER 2024-01-02 06:00 | Outpatient (RCR) | payer MEDICARE, SELFPAY | END 2024-02-01 23:59 | disposition home or self-care (01) | LOC: MPS 06:00 | PROVIDERS: Visit Provider Internal Medicine | DX: I69.815 Cognitive social or emotional deficit following other cerebrovascular disease (principal) | CPT/HCPCS: 92507; 97110; 97112 ==

== ENCOUNTER → 2024-02-07 08:23 | Outpatient (BNVA) | payer MEDICARE, SELFPAY | PROVIDERS: Visit Provider Psychiatry & Neurology Neurology | DX: I69.398 Other sequelae of cerebral infarction (principal) | CPT/HCPCS: 99203 ==

== ENCOUNTER → 2024-02-18 13:29 | Outpatient (BNVA) | payer MEDICARE, SELFPAY | PROVIDERS: Visit Provider Emergency Medicine | DX: R41.0 Disorientation, unspecified (principal) | CPT/HCPCS: 81000; 87086 ==

== ENCOUNTER → 2024-03-20 09:43 | Outpatient (BNVA) | payer MEDICARE, SELFPAY | PROVIDERS: PCP Nurse Practitioner; Referring Provider Nurse Practitioner; Visit Provider Nurse Practitioner | DX: E03.9 Hypothyroidism, unspecified (principal) | CPT/HCPCS: 80053; 84443 ==

== ENCOUNTER → 2024-04-17 11:33 | Outpatient (BNVA) | payer MEDICARE, SELFPAY | PROVIDERS: PCP Nurse Practitioner; Visit Provider Psychiatry & Neurology Neurology | DX: I63.9 Cerebral infarction, unspecified (principal); R29.90 Unspecified symptoms and signs involving the nervous system; H54.7 Unspecified visual loss; E03.9 Hypothyroidism, unspecified; N40.0 Benign prostatic hyperplasia without lower urinary tract symptoms; W19.XXXA Unspecified fall, initial encounter; H91.93 Unspecified hearing loss, bilateral | CPT/HCPCS: 99212 ==

== ENCOUNTER 2025-01-10 04:47 | Inpatient (IN) | payer MEDICARE, SELFPAY ==
[2025-01-10] VITALS (11 sets, daily range): BP systolic 115–226; BP diastolic 57–115; PULSE 64–112; RESP 15–20; TEMP 36.8–38.4; O2SAT 91–97
--- NOTE | 2025-01-10 04:49 | XRR_ITS ---
PROCEDURE INFORMATION: Exam: XR Chest Exam date and time: 01/10/2025 5:19 AM Age: 89 years old Clinical indication: EMS arrival from home for possible CVA. TECHNIQUE: Imaging protocol: Radiologic exam of the chest. Views: 1 view. COMPARISON: CT chest abdpel w/*[id number] 11/02/2023 11:47 PM FINDINGS: Lungs: Scattered reticular opacities are identified most notable along the periphery of the lungs and at the lung bases. Otherwise no acute appearing infiltrates are identified. Pleural spaces: Unremarkable. No pleural effusion. No pneumothorax. Heart/Mediastinum: The heart size is not well assessed. Bones/joints: Unremarkable. XR/XR chest 1V portable [id number] IMPRESSION: 1. No evidence of acute pulmonary process. 2. Scattered reticular opacities which can be seen with interstitial lung disease.
--- NOTE | 2025-01-10 04:49 | CTR_ITS ---
PROCEDURE INFORMATION: Exam: CTA Head With Contrast, Arteriography Exam date and time: 01/10/2025 4:53 AM Age: 89 years old Clinical indication: Stroke-like symptoms; Lt upper extremity and lt lower extremity weakness; Additional info: CVA TECHNIQUE: Imaging protocol: Computed tomographic angiography of the head with contrast. Exam focused on the arteries. 3D rendering (Not supervised by radiologist): MIP and/or 3D reconstructed images were created by the technologist. Radiation optimization: All CT scans at this facility use at least one of these dose optimization techniques: automated exposure control; mA and/or kV adjustment per patient size (includes targeted exams where dose is matched to clinical indication); or iterative reconstruction. Contrast material: OMNI 350; Contrast volume: 175 ml; Contrast route: INTRAVENOUS (IV); COMPARISON: CT angio headneck* [id number] 11/16/2023 1:26 PM RADIATION DOSE METRICS: Total DLP (mGy-cm): 582.41 FINDINGS: ANTERIOR CIRCULATION: Right internal carotid artery: Moderate stenosis secondary to soft and calcified plaque. Right middle cerebral artery: No occlusion or significant stenosis. No aneurysm. Right anterior cerebral artery: No occlusion or significant stenosis. No aneurysm. Left internal carotid artery: Moderate stenosis secondary to soft and calcified plaque. Left middle cerebral artery: No occlusion or significant stenosis. No aneurysm. Left anterior cerebral artery: No occlusion or significant stenosis. No aneurysm. POSTERIOR CIRCULATION: Right vertebral artery: Mild focal stenosis secondary to calcified plaque Left vertebral artery: Minimal flow identified in the V4 segment. Basilar artery: No occlusion or significant stenosis. No aneurysm. Right posterior cerebral artery: No occlusion or significant stenosis. No aneurysm. Left posterior cerebral artery: No occlusion or significant stenosis. No aneurysm. Brain: No definite mass, mass effect, or midline shift. Cerebral ventricles: No ventriculomegaly. Bones/joints: Unremarkable. No acute fracture. Soft tissues: Unremarkable. PROCEDURE INFORMATION: Exam: CTA Neck With Contrast Exam date and time: 01/10/2025 4:53 AM Age: 89 years old Clinical indication: Stroke-like symptoms; Lt upper extremity and lt lower extremity weakness; Additional info: CVA TECHNIQUE: Imaging protocol: Computed tomographic angiography of the neck with contrast. Exam focused on the cervical segments of the vasculature. 3D rendering (Not supervised by radiologist): MIP and/or 3D reconstructed images were created by the technologist. Radiation optimization: All CT scans at this facility use at least one of these dose optimization techniques: automated exposure control; mA and/or kV adjustment per patient size (includes targeted exams where dose is matched to clinical indication); or iterative reconstruction. Contrast material: OMNI 350; Contrast volume: 175 ml; Contrast route: INTRAVENOUS (IV); COMPARISON: CT angio headneck* [id number] 11/16/2023 1:26 PM RADIATION DOSE METRICS: Total DLP (mGy-cm): 582.41 FINDINGS: Right common carotid artery: There is heavy plaque at the right carotid bulb and bifurcation. There is stenosis of the carotid bulb measuring approximately 50%. Right internal carotid artery: There is proximal right internal carotid artery stenosis measuring approximately 60% secondary to heavy plaque. Right external carotid artery: No occlusion or stenosis of the origin. Left common carotid artery: There is heavy plaque at the left carotid bulb and bifurcation. There is stenosis of the carotid bulb measuring less than 50%. Left internal carotid artery: There is stenosis at the origin of the left internal carotid artery measuring less than 50%. The remainder appears patent. Left external carotid artery: No occlusion or stenosis of the origin. Right vertebral artery: No stenosis. No dissection or occlusion. Left vertebral artery: The origin of the left vertebral artery now appears to be occluded secondary to soft and calcified plaque with distal reconstitution of flow present. There appears to be asymmetrically decreased flow in the distal V2 and V3 segments. There is minimal flow identified in the V4 segment. Soft tissues: Normal. No significant soft tissue swelling. Bones/joints: No acute fracture. CT/CT angio headne* [id number] IMPRESSION: 1. Minimal flow identified in the V4 segment of the left vertebral artery. 2. Bilateral internal carotid artery stenosis. IMPRESSION: 1. 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 2. Right proximal internal carotid artery stenosis. Mild stenosis of the right carotid bulb. 3. Mild stenosis of the left carotid bulb/left vertebral artery origin. REFERENCES: NASCET CRITERIA. The degree of stenosis in the cervical segment of the internal carotid artery is based on NASCET criteria. Normal is no stenosis. Mild is less than 50% stenosis. Moderate is 50-69% stenosis. Severe is 70% to 99% stenosis. Total occlusion is no detectable patent lumen.
--- NOTE | 2025-01-10 04:50 | CTR_ITS ---
PROCEDURE INFORMATION: Exam: CT Head Without Contrast Exam date and time: 01/10/2025 4:49 AM Age: 89 years old Clinical indication: Stroke-like symptoms; Lt upper extremity and lt lower extremity weakness; Additional info: EMS arrival for left upper and lower ext weakness. Involuntary tremors. Last known well time of 2245 hours. History of RT side CVA last year. TECHNIQUE: Imaging protocol: Computed tomography of the head without contrast. Radiation optimization: All CT scans at this facility use at least one of these dose optimization techniques: automated exposure control; mA and/or kV adjustment per patient size (includes targeted exams where dose is matched to clinical indication); or iterative reconstruction. Other technique: STROKE PROTOCOL was implemented. COMPARISON: MR head wo con* [id number] 03/12/2024 11:02 AM RADIATION DOSE METRICS: Total DLP (mGy-cm): 2002.18 FINDINGS: Brain: There is right temporoparietal lobe gliosis and encephalomalacia again identified. There is [id number] small vessel disease. There is no evidence of acute parenchymal hemorrhage, extra-axial collection, or acute infarction. There is no mass effect, midline shift, or downward herniation. Cerebral ventricles: No ventriculomegaly. Paranasal sinuses: Visualized sinuses are unremarkable. No fluid levels. Mastoid air cells: Visualized mastoid air cells are well aerated. Bones: Unremarkable. No acute fracture. Soft tissues: Unremarkable. CT/CT head thrombolytic [id number] IMPRESSION: 1. No evidence of acute intracranial process. 2. Right temporoparietal lobe gliosis and encephalomalacia likely due to an old ischemic or hemorrhagic event. 3. [id number] small vessel disease. ASSESSMENT: ASPECTS ([facility] Stroke Program Early CT Score) is 10.
--- NOTE | 2025-01-10 04:50 | ECG_ITS ---
[facility] Test Date: 2025-01-10 Pat Name: Bobby Way Department: Room: Gender: Male Data Communications Analyst: : 1935 Requested By: Mike Brown Order Number: [id number] Reading MD: TIP MARTE Measurements Intervals [place] Rate: 98 P: 69 UT: 209 QRS: 63 QRSD: 102 T: 53 QT: 375 QTc: 480 Interpretive Statements SINUS RHYTHM INCOMPLETE RIGHT BUNDLE BRANCH BLOCK [90+ ms QRS DURATION, TERMINAL R IN V1/V2, 40+ ms S IN I/aVL/V4/V5/V6] MODERATE ST DEPRESSION [0.05+ mV ST DEPRESSION] Compared to ECG 11/16/2023 17:43:38 ST (T wave) deviation now present First degree AV block no longer present Electronically Signed On 01-10-2025 16:23:34 CDT by TIP MARTE [email or web address] [id number]
[2025-01-10] MEDS: iohexol 350 mg/mL 500 mL Btl (per mL) IV (05:11)
--- NOTE | 2025-01-10 05:15 | W.ED.NEUROSD ---
HPI - Neuro Symptoms/Deficit General: Chief Complaint: Neuro Symptoms/Deficit Stated Complaint: WEAKNESS Time Seen by Provider: 01/10/25 04:49 History of Present Illness: Patient presents emerged part with complaint of left-sided weakness that started around 1030 last night. EMS was actually called the patient's did not want to come to the hospital. He apparently told EMS that I have lived a good life and I do not want to go to the hospital . Patient has had a history of previous stroke and on his previous stroke he ended up having seizures. Today he woke up this morning and had uncontrollable movements and twitching of his left side. This is the only reason he came to the ER to see if he can get this to stop. Related Data Home Medications ?Medication ?Instructions ?Recorded ?Confirmed acetaminophen 500 mg tablet 500 mg PO .UP TO BID 11/03/23 12/24/24 levetiracetam 500 mg tablet 1,000 mg PO BID 12/24/24 12/24/24 (Estefania) Previous Rx's ?Medication ?Instructions ?Recorded aspirin 81 mg tablet,delayed 81 mg PO DAILY #30 tabs 11/22/23 release cyanocobalamin (vitamin B-12) 2,000 mcg (2 x 1,000 mcg) PO QAM 11/22/23 1,000 mcg capsule #60 caps alprazolam 0.25 mg tablet 0.25 mg PO BID #10 tabs 02/07/24 atorvastatin 40 mg tablet 40 mg PO BEDTIME #90 tabs 08/14/24 lisinopril 5 mg tablet 5 mg PO DAILY #90 tabs 08/14/24 triamcinolone acetonide 0.1 % 1 applic topical BID 7 days #80 09/30/24 topical cream grams ondansetron 4 mg disintegrating 4 mg PO Q8H PRN nausea and 10/24/24 tablet vomiting #30 tabs levothyroxine 25 mcg tablet See Rx Instructions .Route 12/01/24 .COMPLEX #30 tabs Allergies Allergy/AdvReac Type Severity Reaction Status Date / Time lorazepam (From Ativan) Allergy Unknown Verified 12/24/24 07:16 meperidine (From Demerol) Allergy ADR-Shakine Verified 12/24/24 07:16 ss anxiety meds Allergy confused Uncoded 12/24/24 07:16 [facility] ED PFS: Medical History Low vitamin B12 level Acute hyponatremia Drug overdose of undetermined intent Acute encephalopathy Medication adverse effect Generalized weakness Hypothyroidism BPH (benign prostatic hyperplasia) Social History Smoking and tobacco/nicotine status: never used tobacco/nicotine Marital status: Physical Exam Const: COMMON NORMALS: no acute distress, average body habitus, patient oriented x3, no limitations, healthy appearing, alert and well nourished HENMT: COMMON NORMALS: normocephalic, atraumatic, hearing grossly normal bilaterally, external ears normal, EAC's normal, TM's normal bilaterally, Normal external nose present, Normal nasal mucous membranes and turbinates present, moist oral mucous membranes, oropharynx normal, dentition normal and gingiva normal HEAD & SCALP: normocephalic and atraumatic NOSE: Normal external nose present and Normal nasal mucous membranes and turbinates present EXTERNAL EAR: Yes external ears normal EXTERNAL AUDITORY CANAL: EAC's normal TYMPANIC MEMBRANE: TM's normal bilaterally Neck/C-Spine: COMMON NORMALS: no JVD Resp: COMMON NORMALS: normal respiratory effort, No retractions, No use of accessory muscles, clear to auscultation bilaterally and percussion normal AUSCULTATION: clear to auscultation bilaterally PERCUSSION: percussion normal Cardio: COMMON NORMALS: no JVD, regular rate, regular rhythm, S1 normal heart sound present, S2 normal heart sound present, No gallops present (Cardio), No clicks present (Cardio), No murmurs present (Cardio), No rub (Cardio) and Peripheral pulses 2+ throughout RATE: regular rate RHYTHM: regular rhythm HEART SOUNDS: S1 normal heart sound present and S2 normal heart sound present PERIPHERAL PULSES: Peripheral pulses 2+ throughout GI: COMMON NORMALS: Normal to inspection, nondistended, normoactive bowel sounds present, Soft to palpation, non-tender, No hepatosplenomegaly present, no masses and no bruits PALPATION: Yes Soft to palpation and Yes No hepatosplenomegaly present Neuro: COMMON NORMALS: patient oriented x3 SENSORIUM/ORIENTATION: Yes alert OTHER: Patient has decreased strength on the left side. Has decreased sensation in the left side. Has normal speech. Does have tremors and spasms of the left side. Course Vital Signs: Vital signs: Vital Signs Temperature 98.4 F 01/10/25 05:13 Pulse Rate 99 01/10/25 05:13 Respiratory Rate 18 01/10/25 05:13 Blood Pressure 216/110 01/10/25 05:13 Pulse Oximetry 93 01/10/25 05:13 Oxygen Delivery Me thod Room Air 01/10/25 05:13 MDM - Neuro Symptoms/Deficit Medical Decision Making Patient presents about 7 hours after onset of strokelike symptoms. Patient's symptoms include left-sided weakness and sensory deficits. He is also having uncontrollable spasms and movement and shaking in the left side. Did have history of previous stroke causing seizures. Patient started on Keppra. Also noted to be extremely hypertensive with blood pressure of over 200. Given hydralazine. Also given Zofran for nausea. Discussed case with neurology, Dr. Cesar. 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 D/W Dr Cesar who recommends medical management with asa and plavix. Patient does not really want any aggressive treatment for his stroke but does want the shaking stopped. Will admit patient to the hospital for neurology evaluation. Lab Data 01/10/25 05:15 01/10/25 05:15 Radiology Impressions Chest X-Ray 01/10/25 04:49 IMPRESSION: 1. No evidence of acute pulmonary process. 2. Scattered reticular opacities which can be seen with interstitial lung disease. Head/Neck CTA 01/10/25 04:49 IMPRESSION: 1. Minimal flow identified in the V4 segment of the left vertebral artery. 2. Bilateral internal carotid artery stenosis. IMPRESSION: 1. 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 2. Right proximal internal carotid artery stenosis. Mild stenosis of the right carotid bulb. 3. Mild stenosis of the left carotid bulb/left vertebral artery origin. REFERENCES: NASCET CRITERIA. The degree of stenosis in the cervical segment of the internal carotid artery is based on NASCET criteria. Normal is no stenosis. Mild is less than 50% stenosis. Moderate is 50-69% stenosis. Severe is 70% to 99% stenosis. Total occlusion is no detectable patent lumen. ADDENDUM: 01/10/25 0560 THIS REPORT CONTAINS FINDINGS THAT MAY BE CRITICAL TO PATIENT CARE. The findings were verbally communicated via telephone conference with ROLAND RIZVI at 5:40 AM CDT on 01/10/2025. The findings were acknowledged and understood. Head CT 01/10/25 04:50 IMPRESSION: 1. No evidence of acute intracranial process. 2. Right temporoparietal lobe gliosis and encephalomalacia likely due to an old ischemic or hemorrhagic event. 3. Rrux-[id number] small vessel disease. ASSESSMENT: ASPECTS ([place] Stroke Program Early CT Score) is 10. ADDENDUM: 01/10/25 0520 THIS REPORT CONTAINS FINDINGS THAT MAY BE CRITICAL TO PATIENT CARE. The findings were verbally communicated via telephone conference with ROLAND RIZVI at 5:18 AM CDT on 01/10/2025. The findings were acknowledged and understood. Laboratory Results WBC 8.10 10^3/uL (3.29-11.43) 01/10/25 05:15 RBC 3.47 10^6/uL (3.85-5.65) L 01/10/25 05:15 Hgb 10.80 g/dL (11.27-16.99) L 01/10/25 05:15 Hct 33.5 % (37-53) L 01/10/25 05:15 MCV 96.5 fl (82-101) 01/10/25 05:15 MCH 31.1 pg (27-33) 01/10/25 05:15 MCHC 32.2 g/dL (30-55) 01/10/25 05:15 RDW 14.4 % (12.1-15.1) 01/10/25 05:15 Plt Count 211 10^3/cmm (157-399) 01/10/25 05:15 MPV 10.4 fL (7.4-10.4) 01/10/25 05:15 Neut % (Auto) 57.4 % 01/10/25 05:15 Lymph % (Auto) 28.1 % 01/10/25 05:15 [place]duff[place] % (Auto) 9.5 % 01/10/25 05:15 Eos % (Auto) 4.1 % 01/10/25 05:15 Baso % (Auto) 0.7 % 01/10/25 05:15 Neut # (Auto) 4.64 10^3/uL (1.8-7.7) 01/10/25 05:15 Lymph # (Auto) 2.3 10^3/uL (0.8-4.8) 01/10/25 05:15 [place]duff[place] # (Auto) 0.8 10^3/uL (0.2-0.9) 01/10/25 05:15 Eos # (Auto) 0.3 10^3/uL (0.0-0.8) 01/10/25 05:15 Baso # (Auto) 0.1 10^3/uL (0.0-0.1) 01/10/25 05:15 Nucleated RBC % (auto) 0 % 01/10/25 05:15 Nucleated RBCs # 0.0 /100WBC 01/10/25 05:15 PT 13.70 SECONDS (12.1-14.9) 01/10/25 05:15 INR 0.98 (0.8-1.2) 01/10/25 05:15 APTT 33.3 SECONDS (23.9-36.7) 01/10/25 05:15 Sodium 139 mmol/L (136-145) 01/10/25 05:15 Potassium 3.5 mmol/L (3.5-5.1) 01/10/25 05:15 Chloride 102 mmol/L (98-107) 01/10/25 05:15 Carbon Dioxide 28 mmol/L (22-29) 01/10/25 05:15 Anion Gap 12.5 (5-19) 01/10/25 05:15 BUN 9 mg/dL (8-23) 01/10/25 05:15 Creatinine 0.8 mg/dL (0.7-1.2) 01/10/25 05:15 GFR Calculation Not Reportable 01/10/25 05:15 Glucose 103 mg/dL (65-115) 01/10/25 05:15 Calculated Osmolality 287 mOsm/kg (285-295) 01/10/25 05:15 Calcium 7.9 mg/dL (8.5-10.5) L 01/10/25 05:15 Total Bilirubin 0.4 mg/dL (0.15-1.2) 01/10/25 05:15 AST 15 U/L (0-40) 01/10/25 05:15 ALT 10 U/L (0-41) 01/10/25 05:15 Alkaline Phosphatase 112 U/L (40-130) 01/10/25 05:15 Total Protein 5.7 g/dL (6.6-8.7) L 01/10/25 05:15 Albumin 3.1 g/dL (3.5-5.2) L 01/10/25 05:15 Globulin 2.6 g/dL (1.3-4.6) 01/10/25 05:15 Amorphous Sediment Not Reportable 01/10/25 05:30 Urine Opiates Screen Negative ng/mL (Negative) 01/10/25 05:30 Ur Barbiturates Screen Negative ng/mL (Negative) 01/10/25 05:30 Ur Phencyclidine Scrn Negative ng/mL (Negative) 01/10/25 05:30 Ur Amphetamines Screen Negative ng/mL (Negative) 01/10/25 05:30 U Benzodiazepines Scrn Negative ng/mL (Negative) 01/10/25 05:30 Urine Cocaine Screen Negative ng/mL (Negative) 01/10/25 05:30 U Marijuana (THC) Screen Negative ng/mL (Negative) 01/10/25 05:30 All radiology interpretation(s) finalized by discharge Discharge Plan Discharge Patient Disposition: Placed in Observation Clinical Impression: Seizure Cerebrovascular accident Qualifiers: CVA mechanism: other Qualified Code(s): I63.89 - Other cerebral infarction Coding Level of Care Code ED [facility] Letter Carrier for Adrianna Baird
[2025-01-10 05:21] LABS: Basophils # 0.1 10^3/uL (0.0-0.1); Basophils % 0.7 %; Eosinophils # 0.3 10^3/uL (0.0-0.8); Eosinophils % 4.1 %; Hematocrit 33.5 % (37-53); Lymphocytes # 2.3 10^3/uL (0.8-4.8); Lymphocytes % 28.1 %; Mean Corpuscular HGB Conc 32.2 g/dL (30-55); Mean Corpuscular Hemoglobin 31.1 pg (27-33); Mean Corpuscular Volume 96.5 fl (82-101); Mean Platelet Volume 10.4 fL (7.4-10.4); Monocytes # 0.8 10^3/uL (0.2-0.9); Monocytes % 9.5 %; Neutrophils # 4.64 10^3/uL (1.8-7.7); Neutrophils % 57.4 %; Nucleated Red Blood Cells % 0 %; Platelet Count 211 10^3/cmm (157-399); Red Blood Count 3.47 10^6/uL (3.85-5.65); Red Cell Distribution Width 14.4 % (12.1-15.1)
[2025-01-10] MEDS: ondansetron 2 mg/ML SDV 2 mL 4 MG IVP (05:21)
[2025-01-10] MEDS: hyDRALAzine 20 mg/mL INJ 1 mL 10 MG IVP (05:22)
[2025-01-10] MEDS: levETIRAcetam 1,000 MG/100 ML PREMIX 400 MG IV ×2 (05:23→17:08)
[2025-01-10 05:34] LABS: INR 0.98 (0.8-1.2)
[2025-01-10 05:35] LABS: Partial Thromboplastin Time 33.3 SECONDS (23.9-36.7)
[2025-01-10 05:38] LABS: Alanine Aminotransferase 10 U/L (0-41); Albumin Level 3.1 g/dL (3.5-5.2); Alkaline Phosphatase 112 U/L (40-130); Anion Gap 12.5 (5-19); Aspartate Amino Transferase 15 U/L (0-40); Blood Urea Nitrogen 9 mg/dL (8-23); Calcium 7.9 mg/dL (8.5-10.5); Carbon Dioxide 28 mmol/L (22-29); Chloride 102 mmol/L (98-107); Creatinine Clr Calc Pharmacy 66.5784; Globulin 2.6 g/dL (1.3-4.6); Glucose 103 mg/dL (65-115); Osmolality Calculated 287 mOsm/kg (285-295); Potassium 3.5 mmol/L (3.5-5.1); Sodium 139 mmol/L (136-145); Total Bilirubin 0.4 mg/dL (0.15-1.2); Total Protein 5.7 g/dL (6.6-8.7)
[2025-01-10 05:40] LABS: Bilirubin Urine Negative (Negative); Blood Urine 2+ (Negative); Glucose Urine UA Negative (Normal); Ketones Urine Negative (Negative); Leukocyte Esterase Urine Negative (Negative); Nitrate Urine Negative (Negative); Protein Urine Negative (Negative); Urine Appearance Clear (CLEAR); Urine Color Yellow (Yellow); pH Urine 7.5 (5-7)
[2025-01-10 05:45] LABS: Add Urine Microscopic? YES; Bacteria Urine None Seen /hpf; Hyaline Casts Urine 0-4 /lpf; RBC Urine 21-50 /hpf (0-2); Squamous Epithelial Cell Urine 0-5 /hpf (0-5); WBC Urine 0-5 /hpf (0-5)
[2025-01-10 05:48] LABS: Amphetamines Screen Urine Negative (Negative); Barbiturates Screen Urine Negative (Negative); Benzodiazepines Screen Urine Negative (Negative); Cocaine Screen Urine Negative (Negative); Opiate Screen Urine Negative (Negative); PCP Screen Urine Negative (Negative); THC Screen Urine Negative (Negative)
--- NOTE | 2025-01-10 05:50 | PM.HP ---
Providers/Chief Complaint Primary Care Provider: Isa Lopez APN Chief Complaint: WEAKNESS History of Present Illness Bobby Way is a 89 year old male with a past medical history significant for stroke with history of right-sided weakness, hyponatremia, hypothyroidism, benign prostatic hypertrophy, and multiple other comorbidities who presents with strokelike symptoms. Reports onset last night at 10:30 PM. Describes symptoms as left-sided weakness with associated tremors. He has a history of prior stroke with reported right-sided weakness and history of seizure following the stroke. He reports this morning upon awakening the symptoms were worse. He reports uncontrolled twitching for which he ultimately decided to get evaluated. Denies other alleviating or aggravating factors. Denies chest pain, fevers or chills. He is found to be a poor historian on exam. Head CT was negative for acute intracranial processes. Head and neck CTA showed minimal flow in the V4 segment of the left vertebral artery, bilateral internal carotid artery stenosis. ED provider reports he discussed patient with Dr. Cesar who recommended admission and dual antiplatelet therapy. Review of Systems Narrative: A complete review of systems was obtained and is negative except as stated in HPI. Medications/Allergies Home Medications ?Medication ?Instructions ?Recorded ?Confirmed ?Last Taken ?Type acetaminophen 500 mg tablet 500 mg PO .UP TO BID 11/03/23 12/24/24 11/16/23 History aspirin 81 mg tablet,delayed 81 mg PO DAILY #30 tabs 11/22/23 12/24/24 Unknown Rx release cyanocobalamin (vitamin B-12) 2,000 mcg (2 x 1,000 mcg) PO QAM 11/22/23 12/24/24 11/15/23 Rx 1,000 mcg capsule #60 caps alprazolam 0.25 mg tablet 0.25 mg PO BID #10 tabs 02/07/24 12/24/24 Unknown Rx atorvastatin 40 mg tablet 40 mg PO BEDTIME #90 tabs 08/14/24 12/24/24 Unknown Rx lisinopril 5 mg tablet 5 mg PO DAILY #90 tabs 08/14/24 12/24/24 Unknown Rx triamcinolone acetonide 0.1 % 1 applic topical BID 7 days #80 09/30/24 12/24/24 Unknown Rx topical cream grams ondansetron 4 mg disintegrating 4 mg PO Q8H PRN nausea and 10/24/24 12/24/24 Unknown Rx tablet vomiting #30 tabs levothyroxine 25 mcg tablet See Rx Instructions .Route 12/01/24 12/24/24 Unknown Rx .COMPLEX #30 tabs levetiracetam 500 mg tablet 1,000 mg PO BID 12/24/24 12/24/24 Unknown History (Keppra) Allergies Allergy/AdvReac Type Severity Reaction Status Date / Time lorazepam (From Ativan) Allergy Unknown Verified 12/24/24 07:16 meperidine (From Demerol) Allergy ADR-Shakine Verified 12/24/24 07:16 ss anxiety meds Allergy confused Uncoded 12/24/24 07:16 PFSH Acute PFSH: Medical History (Updated 01/10/25 @ 05:59 by Andriy Landrum MD) Low vitamin B12 level Acute hyponatremia Drug overdose of undetermined intent Acute encephalopathy Medication adverse effect Generalized weakness Hypothyroidism BPH (benign prostatic hyperplasia) Social History Smoking and tobacco/nicotine status: never used tobacco/nicotine Marital status: Vitals/I&O/Wt Last Vital Signs Temp 98.4 F 01/10/25 05:13 Pulse 99 01/10/25 05:13 Resp 18 01/10/25 05:13 BP 216/110 01/10/25 05:13 Pulse Ox 93 01/10/25 05:13 O2 Del Method Room Air 01/10/25 05:13 01/09/25 01/09/25 01/10/25 14:59 22:59 06:59 Intake Total 0 / 0 Balance 0 / 0 Weight last 48 hrs Weight 85.221 kg Weight 2.466 kg Physical Exam Narrative: General: Patient is awake. Head: Normocephalic. Atraumatic. EOM intact. Hard of hearing. Neck: No JVD. Cardiovascular: RRR. No gallops. No murmurs. 2+ pitting edema in lower extremities bilaterally. Lungs: Clear to auscultation, no use of accessory muscles, no crackles or wheezes. Skin: No jaundice. No rashes. Abdomen: Normal bowel sounds, abdomen soft and nontender. Genito Urinary: Genital exam not performed since complaints not related. Rectal: Rectal exam not performed since no symptoms indicated blood loss. Extremities: No cyanosis or clubbing. Musculoskeletal: No erythematous joints. Neurological: Cranial nerves II through XII grossly intact. Patient is tremulous, worse in upper extremities slightly worse on the right side as compared to left. His left sided extremities are weak. Follows commands poorly which makes a full neurological assessment difficult. Data 01/10/25 05:15 01/10/25 05:15 A&P Assessment and plan (1) Seizure: (2) Cerebrovascular accident: (3) Hypothyroidism: (4) Essential hypertension: (5) Low vitamin B12 level: Plan Strokelike symptoms History of prior stroke with residual right-sided deficit - CT and CTA reviewed - Neurology consult - Dual antiplatelet therapy - Statin - PT/OT/ST - Neurochecks - Admit with stroke protocol History of seizure disorder - Continue Keppra Hypertension - Allow permissive hypertension Hyperlipidemia - Continue statin Hypothyroidism - Continue Synthroid DVT prophylaxis: Lovenox PDMP PDMP Reviewed: Not Reviewed Attestations Medical Necessity Statement*: Patient presents with strokelike symptoms with expected hospitalization not to cross 2 midnights for further neurological assessment and treatment. Coding Level of Care Code Acute Code for Chg Fwd Diagnoses Seizure R56.9 Cerebrovascular accident I63.89 CVA mechanism: other Hypothyroidism E03.9 Essential hypertension I10 Low vitamin B12 level R79.89
[2025-01-10 05:53] LABS: Add Urine Culture? Yes
[2025-01-10] MEDS: labetalol 5 mg/mL SDV 20mL 10 MG IVP (06:42)
--- NOTE | 2025-01-10 07:36 | USCV_ITS ---
Bobby Way Age: 89 Gender: M : 1935 Exam Date: 01/10/2025 10:57 Ordering Phys: Andriy Landrum MD Technologist: Eddy Booker Exam Location: [facility] [place] Indication: acute stroke BP: 183 / 93 HR: 83 Rhythm: Sinus Technical Quality: Adequate MEASUREMENTS (Male / Female) Normal Values 2D ECHO LV Diastolic Diameter PLAX 4.9 cm 4.2 - 5.9 / 3.9 - 5.3 cm IVS Diastolic Thickness 1.2 cm 0.6 - 1.0 / 0.6 - 0.9 cm IVS Systolic Thickness 1.6 cm LVPW Diastolic Thickness 1.4 cm 0.6 - 1.0 / 0.6 - 0.9 cm LVPW Systolic Thickness 2.0 cm LVOT Diameter 2.0 cm LV Ejection Fraction 2D Teich 66.9 % LV Ejection Fraction MOD 4C 57.6 % LV Ejection Fraction MOD 2C 57.1 % LV Ejection Fraction 2C AL 59.0 % LA Diameter 3.0 cm RA Systolic Volume 4C AL 53.6 ml RA Systolic Volume 4C MOD 54.4 ml LA Sys Volume AL 45.9 cm cubed LA Sys Volume Index AL 22.6 cm cubed/m squared Aorta at Sinotubular Diameter 2.9 cm IVC Diameter 1.4 cm M-MODE LA Ao Ratio MM 1.1 AV Cusp Separation MM 1.8 cm DOPPLER AV Peak Velocity 243.0 cm/s LVOT Peak Velocity 101.0 cm/s AV Area Cont Eq vti 3.0 cm squared AV Area Cont Eq pk 1.3 cm squared MV Peak Velocity 109.0 cm/s MV Area PHT 9.1 cm squared Mitral E to A Ratio 0.6 TV Peak Velocity 415.5 cm/s TR Peak Velocity 441.0 cm/s TR Peak Gradient 77.8 mmHg TR Mean Velocity 385.0 cm/s TR Mean Gradient 60.6 mmHg TR Velocity Time Integral 103.9 cm PV Peak Velocity 112.0 cm/s RV Ejection Time 0.3 s FINDINGS Left Ventricle Normal left ventricular size and systolic function, EF 59%. No regional wall motion abnormalities. Mild left ventricular hypertrophy. Grade I/IV diastolic dysfunction (abnormal relaxation filling pattern), normal to mildly elevated filling pressures. Right Ventricle The right ventricle is normal in size and function. Right Atrium The right atrium is normal in size. Left Atrium The left atrium is normal in size. Mitral Valve Trace mitral valve regurgitation. Aortic Valve Thickened aortic valve. Trace aortic valve regurgitation. Tricuspid Valve Njqw-hn-vqpztyfv tricuspid valve regurgitation. Estimated pulmonary artery peak systolic pressure 64 mmHg Pulmonic Valve Mild pulmonary valve regurgitation. Pericardium Normal pericardium without effusion. Aorta Normal ascending aorta dimension. IVC The inferior vena cava appears normal. CONCLUSIONS Normal left ventricular size and systolic function, EF 59%. No regional wall motion abnormalities. Mild left ventricular hypertrophy. Grade I/IV diastolic dysfunction (abnormal relaxation filling pattern), normal to mildly elevated filling pressures. Trace mitral valve regurgitation. Thickened aortic valve. Trace aortic valve regurgitation. Jnyb-bq-yneegwdj tricuspid valve regurgitation. Moderate pulmonary hypertension. Estimated pulmonary artery peak systolic pressure 64 mmHg. Mild pulmonary valve regurgitation. There is no pericardial effusion. There are no intracardiac masses. Compared to the study from 11/16/2023, the pulmonary hypertension appears to be new. However because of the technical differences in the technical quality, the reliability is questionable Dr Jefry Agudelo MD [facility] (Electronically Signed) Final Date: 10 Jan 2025 20:59 S
--- NOTE | 2025-01-10 08:04 | MRR_ITS ---
PROCEDURE INFORMATION: Exam: MR Head Without Contrast Exam date and time: 01/10/2025 2:29 PM Age: 89 years old Clinical indication: Altered mental status/memory loss; Confusion or disorientation; Additional info: Fever, left sided weakness TECHNIQUE: Imaging protocol: Magnetic resonance imaging of the head without contrast. COMPARISON: CT angio headneck* [id number] 01/10/2025 4:53 AM FINDINGS: Brain: Multifocal encephalomalacia including a large region of right parietotemporal encephalomalacia. No evidence of diffusion restriction to suggest acute ischemia. No mass effect or midline shift. Cerebral ventricles: No hydrocephalus. Bones: Unremarkable. Paranasal sinuses: The visualized paranasal sinuses are well aerated. Mastoid air cells: The mastoids and middle ears are grossly clear without evidence of effusion. Orbital cavities: The visualized orbits are unremarkable. Soft tissues: Grossly unremarkable. MR/MR head wo con* [id number] IMPRESSION: 1. No evidence of acute intracranial abnormality. 2. Multifocal encephalomalacia.
[2025-01-10 08:06] LABS: Erythrocyte Sedimentation Rate 2 mm/hr (0-10)
[2025-01-10 08:22] LABS: C Reactive Protein 6.5 mg/L (0.0-4.9)
[2025-01-10 08:29] LABS: Procalcitonin 0.04 ng/mL (0-0.5)
--- NOTE | 2025-01-10 09:27 | PC.OT ---
OT EVALUATION ORDERS RECEIVED. HOLDING OT EVALUATION TODAY PATIENT ADMITTED EARLY A.M. WITH STROKE SYMPTOMS.
--- NOTE | 2025-01-10 09:47 | PM.CONSULT ---
Providers/Reason For Consult Consulting Physician/Specialty*: All Cesar MD neurology and epilepsy Reason for Consult*: Acute care/code stroke emergency department room #10 Attending Physician: Satish Brock MD Primary Care Provider: Isa Lopez APN History of Present Illness History of Present Illness History of present illness: Bobby Way is a 89 year old male who presented to the emergency department with reports of waking up the morning of 05/13/2025 with uncontrollable movements and twitching involving the left side of his body. The patient did not present to the [facility] emergency department until around 10:30 PM on 01/09/2025. The patient presented complaining of continued involuntary movements and twitching involving the left side of his body associated with left-sided weakness that started around 1030 last night. EMS was actually called but the patient's did not want to come to the hospital. He apparently told EMS that I have lived a good life and I do not want to go to the hospital . Patient has had a history of previous stroke and on his previous stroke he ended up having seizures. On the morning of 01/09/2025 the patient was reported to wake up with uncontrollable movements and twitching of his left side. This is the only reason he came to the ER to see if he can get the uncontrolled movements under control. In the emergency department the patient had repeat noncontrast head CT and CT angiogram of the head and neck 01/10/2025. CBC and comprehensive metabolic panel revealed decreased hemoglobin and hematocrit of 10.8 and 33.5 respectively. Platelet count was within normal limits at 211. Sedimentation rate was unremarkable. C-reactive protein was elevated 6.5. Calcium decreased at 7.9. Albumin decreased at 3.1. The other labs were unrevealing. 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 But compared to the previous studies revealing small left vertebral artery on previous CT angiogram 11/16/2023 and the patient's symptoms not correlating with the patient's reported involuntary movement/shaking. There was no reported increased dysarthria, or worsening of speech difficulty or swallowing or worsening vision. I recommended the patient be started on Plavix and aspirin. Since the patient did not present to the [facility] emergency department within the intravenous thrombolytic window and the patient's symptoms were not consistent with posterior circulation stroke and head CT revealed no acute findings there was concern that the left vertebral artery occlusion may be nonacute and therefore the patient from neurological standpoint was determined not to be a candidate for intravenous thrombolytics and no intravenous thrombolytics were administered. The patient was started on IV Keppra. The patient was admitted to [facility] 255 bed #2. On 01/10/2025 the patient is resting but arousable to tactile and verbal stimuli. Patient sleepy but will tell me his first name and part of the date of . He did move his right arm and both legs but no significant movement in the left arm. Plantar responses revealed extensor plantar response on the left. The patient is in no apparent distress but would not fully cooperate with the examination on 01/10/2025. During the patient's last clinic visit on 04/17/2024 the patient was scheduled for follow-up in 6 months but the patient did not return. Noncontrast head CT 01/10/2025 IMPRESSION: 1. No evidence of acute intracranial process. 2. Right temporoparietal lobe gliosis and encephalomalacia likely due to an old ischemic or hemorrhagic event. 3. [id number] small vessel disease. CT angiogram of the head and neck 01/10/2025 IMPRESSION: 1. 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 2. Right proximal internal carotid artery stenosis. Mild stenosis of the right carotid bulb. 3. Mild stenosis of the left carotid bulb/left vertebral artery origin. 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 The patient also has history of hypothyroidism, and BPH. The patient was brought in for evaluation to ED due to concern of CVA, family stated last known well was around 1-2 AM when he was eating and able to use his right arm. He then went back to sleep. Later morning when he woke up he could not lift his right arm and experiencing weakness in the right leg as well. Symptoms are accompanied also by numbness on the right side. CT of the head was obtained there was no report of any cerebral hemorrhaging but there was report of remote left parietal infarct, large remote right parietal occipital infarct, advanced small vessel ischemic disease and prior lacunar infarcts, but he was outside of the window for tPA. Per family he does not have history of dementia, normally his functional, ambulates independently. CT angiogram head and neck was obtained study with some compromised by motion, bilateral cervical artery stenosis estimated at 55 to 60%, no occlusion. 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 High-grade stenosis near 70% left supraclinoid ICA. Mild atherosclerotic plaque left M1 segment but no thrombus or occlusion. Small caliber partially nonvisualization of left vertebral artery. May be developmental. 11/16/2023 2D echocardiogram revealed Normal left ventricular size and systolic function, EF 59%. Mild concentric left-ventricular hypertrophy.Grade I/IV diastolic dysfunction (abnormal relaxation filling pattern), normal to mildly elevated filling pressures. Trace mitral valve regurgitation. Thickened aortic valve. Trace to mild aortic valve regurgitation. Mild pulmonary valve regurgitation. No intracardiac shunt by color-flow Doppler examination or by saline contrast injection No similar previous studies are available for comparison. Following discharge the patient was transferred to acute rehab. Patient was discharged on Lipitor and aspirin 81 mg p.o. daily. Since discharge from rehab the patient continued to complain of some visual difficulty in the left eye and according to the family the patient continued to neglect objects on the left side of his body and will run into the [place]isco on his left side when ambulating. They also stated the patient neglected food on the left side of his plate. They also stated that since discharge the patient had fallen twice secondary to slipping off the sofa on 1 episode and the other episode he misinterpreted a small table for a folding chair when he attempted to sit down outside of his home. The patient was also reported to experience some occasional visual hallucinations where he will imagine that some of the neighbors are in his home or there was an imaginary little girl with autism that visits the home at night or in the early mornings. I recommended the patient undergo noncontrast head MRI to further assess the left hemispheric stroke and ophthalmology evaluation to assess the visual field deficit and vision issue. The family stated that the patient has to be premedicated with Xanax prior to the imaging study. The family informed me that the patient did well with Xanax but not with Ativan which caused him to be agitated and combative when he was given Ativan for procedures. During the patient's clinic visit on 02/07/2024 he was scheduled for noncontrast head MRI. This study was performed on 03/12/2024 and revealed: 1. Encephalomalacia and gliosis in the RIGHT prior occipital junction and RIGHT temporal lobe with associated laminar necrosis compatible with chronic ischemia stable since the prior CT. 2. Smaller chronic infarct in the LEFT parietal occipital junction unchanged since the prior CT 3. Small area of restricted diffusion in the RIGHT temporal infarct bed may represent an area of more recent ischemia versus artifact 4. Moderate small vessel changes. Moderate parenchymal volume loss. 5. Moderate to advanced symmetric atrophy temporal lobes hippocampal formations. 6. Tiny chronic lacunar infarct RIGHT basal ganglia. CT angiogram of the head and neck 11/16/2023 revealed: IMPRESSION: 1. Study quality is limited by motion artifact throughout. 2. Bilateral cervical carotid artery stenosis estimated at 50 to 60%. No occlusion. 3. 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 4. High-grade stenosis near 70% LEFT supraclinoid ICA. 5. Mild atherosclerotic plaque LEFT M1 segment but no thrombus or occlusion. 6. Small caliber partially nonvisualization of the LEFT vertebral artery. May be developmental. The patient was referred to ophthalmology. 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 The patient's and a family friend who accompanied the patient on follow-up stated that they moved the patient's daughter from another state to help care for the patient following his hospitalization but the patient became worse and was unable to get out of the automobile without assistance, and patient was displaying episodes of confusion and misinterpreted the kitchen or front door for the bathroom. The patient was also reported to be very weak and was hallucinating. The patient's also stated that the patient began feeling ill and weak. But after removing the patient's daughter from the home, the patient's symptoms resolved in less than 24 hours and the patient had been doing well with no further hallucinations or weakness episodes. I recommended monitoring the patient for any recurrent episodes and scheduled follow-up in 6 months or sooner if needed. I recommended patient remain on aspirin 81 mg p.o. daily and Lipitor 40 mg p.o. q. evening for stroke prophylaxis and to contact the [facility] neurology clinic if the patient experiences any issues on the medications or present to the nearest emergency room. The family agreed with this plan and voiced understanding. Also I informed the patient's that if the patient experiences any further episodes of confusion I would recommend patient undergo a surface EEG recording to assess for seizures related to strokes. Drug allergies: Ativan (lorazepam) which resulted in combativeness and agitation Demerol which resulted in shaking and Current medications: Tylenol 500 mg p.o. twice daily as needed for pain Aspirin 81 mg p.o. daily Lipitor 40 mg p.o. nightly B12 2000 mcg p.o. daily Synthroid 25 mcg p.o. daily Hydrochlorothiazide 12.5 mg p.o. daily Keppra 1000 mg p.o. twice daily Synthroid 25 mcg to use as instructed Lisinopril 5 mg p.o. daily Zofran 4 mg p.o. every 8 hours as needed for nausea vomiting Plavix 75 mg p.o. every morning Aspirin 81 mg p.o. every morning Xanax 0.25 mg p.o. twice daily Past medical history: Hypothyroidism Benign prostate hypertrophy Family history: Unknown Review of Systems General: Reports: ROS unobtainable due to medical condition Medications/Allergies Home Medications ?Medication ?Instructions ?Recorded ?Confirmed ?Last Taken ?Type acetaminophen 500 mg tablet 500 mg PO .UP TO BID 11/03/23 01/10/25 11/16/23 History aspirin 81 mg tablet,delayed 81 mg PO DAILY #30 tabs 11/22/23 01/10/25 Unknown Rx release cyanocobalamin (vitamin B-12) 2,000 mcg (2 x 1,000 mcg) PO QAM 11/22/23 01/10/25 11/15/23 Rx 1,000 mcg capsule #60 caps atorvastatin 40 mg tablet 40 mg PO BEDTIME #90 tabs 08/14/24 01/10/25 Unknown Rx lisinopril 5 mg tablet 5 mg PO DAILY #90 tabs 08/14/24 01/10/25 Unknown Rx ondansetron 4 mg disintegrating 4 mg PO Q8H PRN nausea and 10/24/24 01/10/25 Unknown Rx tablet vomiting #30 tabs levothyroxine 25 mcg tablet See Rx Instructions .Route 12/01/24 01/10/25 Unknown Rx .COMPLEX #30 tabs hydrochlorothiazide 12.5 mg tablet 12.5 mg PO DAILY 01/10/25 01/10/25 Unknown History levetiracetam 1,000 mg tablet 1,000 mg PO BID 01/10/25 01/10/25 Unknown History Allergies Allergy/AdvReac Type Severity Reaction Status Date / Time lorazepam (From Ativan) Allergy Unknown Verified 12/24/24 07:16 meperidine (From Demerol) Allergy ADR-Shakine Verified 12/24/24 07:16 ss anxiety meds Allergy confused Uncoded 12/24/24 07:16 PFSH Acute PFSH: Medical History (Updated 01/10/25 @ 10:22 by All Cesar MD) Low vitamin B12 level Acute hyponatremia Drug overdose of undetermined intent Acute encephalopathy Medication adverse effect Generalized weakness Hypothyroidism BPH (benign prostatic hyperplasia) Social History Smoking and tobacco/nicotine status: never used tobacco/nicotine Marital status: Vitals/I&O/Wt Last Vital Signs Temp 101.1 F H 01/10/25 07:36 Pulse 92 01/10/25 07:36 Resp 15 01/10/25 07:36 BP 183/93 01/10/25 07:36 Pulse Ox 91 01/10/25 07:36 O2 Del Method Room Air 01/10/25 07:36 O2 Flow Rate 2 01/10/25 06:45 01/09/25 01/10/25 01/10/25 22:59 06:59 14:59 Intake Total 0 / 0 100 / 100 Balance 0 / 0 100 / 100 Weight last 48 hrs Weight 187 lb 14.08 oz Weight 5 lb 7 oz Physical Exam Narrative: NIH stroke score = 4 (secondary to no movement of the left arm =3, dysarthria =1). Note: The patient's clinically had remote visual deficit, weakness from previous strokes The patient was sleepy but arousable to verbal and tactile stimuli. The patient will tell me his first name and part of his date of and then patient goes back to sleep. I did not observe any involuntary movements involving the left arm or left leg. Head atraumatic. Neck supple. Cranial nerves II through XII difficult to assess secondary to sedation. Motor testing patient moves right upper extremity and both legs to tactile stimuli. There was no moving the left upper extremity. Deep tendon reflex revealed extensor plantar response on the left there was no clonus. Sensory examination was intact to touch. Throat clear. Lungs clear. Heart regular rhythm and rate. Extremities were negative for cyanosis. Note: Examination was performed while the patient was lying in bed room #255 bed #2 MedSurg unit. No family member was at the bedside. Data 01/10/25 05:15 01/10/25 05:15 A&P Assessment and plan (1) Focal motor seizure: Impression: 1. 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 Left vertebral artery proximal occlusion reported on CT angiogram 01/10/2025 and history of small caliber partially none visualized left vertebral artery with concerns for possible developmental in nature on CT angiogram 11/16/2023 3. History of remote strokes involving the right temporoparietal areas with gliosis and encephalomalacia and chronic left parietal occipital infarction and chronic right basal ganglia stroke 4. Right common carotid artery and proximal internal carotid artery with heavy plaque measuring 60% stenosis on CT angiogram 01/10/2025 5. Left common carotid artery and proximal internal carotid stenosis measuring approximately 50% stenosis 6. Decreased hemoglobin and hematocrit 10.8 and 33.5 respectively Plan: 1. Monitor for any recurrent seizures 2. Monitor hemoglobin and hematocrit 3. Continue Plavix 75 mg p.o. every morning with food as tolerated per NIH stroke protocol 4. Continue low-dose aspirin 81 mg p.o. every morning with food as tolerated per NIH stroke protocol 5. Continue Keppra 1000 mg p.o. twice daily for seizure prophylaxis as tolerated 6. Ativan 0.5 to 1 mg IV every 6 hours as needed for any seizures lasting greater than 2 minutes or more than 2 seizures within a 1 hour period of time 7. Occupational Therapy, speech therapy and physical therapy consult 8. Neurocheck and vital signs per NIH stroke protocol 9. Seizure precautions 10. Fall precautions 11. Stroke education and stroke pamphlet for patient and 12. Continue Lipitor 40 mg p.o. nightly as tolerated per NIH stroke protocol 13. Recommend obtaining trough Keppra level in 1 week and adjust Keppra as needed/tolerated 14. Recommend obtaining outpatient routine surface EEG recording on discharge to assess for any subclinical seizure activity 15. Recommend repeat CT angiogram of the head and neck in 3 months to assess for any progression in the bilateral internal carotid artery and common carotid artery stenosis and plaque bilaterally right side greater than left to determine if patient is candidate for carotid endarterectomy if patient consents to the procedure and if patient or patient's family is considering this as an option for care. Note: Since the patient's clinical symptoms were reported to begin the morning of 01/09/2025 and the patient did not present to the [facility] emergency department until approximately 10:30 PM on 01/09/2025, and the patient's symptoms were reported to be focal motor seizures involving the left side of his body without reported symptoms of acute posterior circulation stroke, the patient was not a candidate for intravenous thrombolytic and no intravenous thrombolytics were administered. Since the patient's left vertebral artery was reported to be occluded proximally, patient was not candidate for intravenous thrombectomy. (2) Remote history of stroke: (3) Occlusion of vertebral artery: PDMP PDMP Reviewed: Not Reviewed Consult Attestations Medical Necessity Statement: The patient was evaluated by neurology for acute care and involuntary movements involving the left arm and left leg and history of remote strokes and seizures Coding Level of Care Code 92196 Diagnoses Focal motor seizure G40.109 Remote history of stroke Z86.73 Occlusion of vertebral artery I65.09
[2025-01-10] MEDS: enoxaparin 40 mg/0.4 mL Syringe SUBCUT (09:54)
[2025-01-10] MEDS: cefTRIAXone 1,000 mg SDV 1000 MG IVP (09:56)
--- NOTE | 2025-01-10 10:45 | CTR_ITS ---
PROCEDURE INFORMATION: Exam: CT Chest Without Contrast; Diagnostic Exam date and time: 01/10/2025 2:15 PM Age: 89 years old Clinical indication: Fever; Additional info: Fever, abdominal pain TECHNIQUE: Imaging protocol: Diagnostic computed tomography of the chest without contrast. Radiation optimization: All CT scans at this facility use at least one of these dose optimization techniques: automated exposure control; mA and/or kV adjustment per patient size (includes targeted exams where dose is matched to clinical indication); or iterative reconstruction. COMPARISON: CT chest abdpel w/*[id number] 11/02/2023 11:47 PM RADIATION DOSE METRICS: Total DLP (mGy-cm): 970.46 FINDINGS: Lungs: Fibrotic changes in both lungs with reticulations and bibasilar honeycombing compatible with a UIP pattern. No convincing evidence of pneumonia. No focal consolidation. No pneumothorax. There is subsegmental atelectasis and in both lungs secondary to the expiratory phase of respiration. Pleural spaces: No pleural effusion. Heart: No cardiomegaly. No pericardial effusion. Coronary arteries: There are incidental coronary artery calcifications. Mediastinal space: Trachea and airway are grossly patent. No evidence of mediastinal hemorrhage or hematoma. Lymph nodes: Multiple prominent and borderline enlarged mediastinal and hilar nodes, frequently reactive in the setting of interstitial lung disease. Vasculature: No evidence of aneurysmal dilatation of the thoracic aorta. Evaluation for acute vascular injury or thrombosis is limited by lack of IV contrast. Bones/joints: No evidence of acute fracture or aggressive osseous lesion. Soft tissues: No evidence of fluid collection or hematoma in the superficial soft tissues. PROCEDURE INFORMATION: Exam: CT Abdomen And Pelvis Without Contrast Exam date and time: 01/10/2025 2:15 PM Age: 89 years old Clinical indication: Fever; Additional info: Fever, abdominal pain TECHNIQUE: Imaging protocol: Computed tomography of the abdomen and pelvis without contrast. Radiation optimization: All CT scans at this facility use at least one of these dose optimization techniques: automated exposure control; mA and/or kV adjustment per patient size (includes targeted exams where dose is matched to clinical indication); or iterative reconstruction. COMPARISON: CT chest abdpel w/*[id number] 11/02/2023 11:47 PM RADIATION DOSE METRICS: Total DLP (mGy-cm): 970.46 FINDINGS: Diaphragm: No evidence of diaphragmatic defect. Liver: No evidence of focal hepatic lesion within limitation of a noncontrast exam. Gallbladder and biliary ducts: Gallbladder is contracted. No evidence of intra-hepatic or extra-hepatic biliary dilatation. Pancreas: Grossly unremarkable. Spleen: Grossly unremarkable. Adrenal glands: Grossly unremarkable. Kidneys and ureters: No gross renal parenchymal abnormality. There is excreted contrast in the renal collecting systems bilaterally. No evidence of hydronephrosis or ureteral stone. Stomach and bowel: Few scattered colonic diverticula without evidence of acute diverticulitis. No evidence of bowel obstruction or perienteric inflammatory changes. Appendix: Normal appendix. Intraperitoneal space: No evidence of free air or fluid collection. Vasculature: No evidence of aneurysmal dilitation of abdominal aorta. Lymph nodes: No evidence of adenopathy. Urinary bladder: Excreted contrast within the bladder. Otherwise grossly unremarkable. Reproductive: Enlarged prostate measuring 5 cm. Consider correlation with serum laboratory findings and outpatient urologic evaluation. Bones/joints: No evidence of acute fracture or aggresive osseous lesion. 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 Moderate-severe bilateral foraminal stenosis at this level with likely contacting of the exiting L4 nerve roots. Soft tissues: No evidence of fluid collection or hematoma in the superficial soft tissues. CT/[place] [id number] IMPRESSION: 1. No evidence of acute abnormality within limitations of a noncontrast exam. 2. Interstitial lung disease. IMPRESSION: 1. No evidence of acute abnormality in the abdomen or pelvis within limitations of a noncontrast exam.
--- NOTE | 2025-01-10 11:21 | PC.PT ---
Addendum entered by Amberly Salas PT 01/10/25 14:56: Pt was not appropriate for evaluation this morning due to confusion, lethargy, and inability to follow instructions per conversations with HAND [employer]SEM[employer] WORKER staff and nursing staff. Reattempted this afternoon at 14:51 and pt was off the floor for MRI and CT. Nursing staff was unsure when he would be back, but said it would be awhile . Will hold off until Sunday. Original Note: PT orders received. Hold PT at this time as pt was admitted this morning with stroke symptoms. Will reassess later to determine if pt is appropriate for evaluation.
[2025-01-10] MEDS: AZITHROMYCIN ADD-Vantage 500 MG in 0.9% NaCl ADD-Vantage 250 ML 250 MG IV (11:36)
--- NOTE | 2025-01-10 13:08 | P.PN_ITS ---
Subjective 2 Subjective: - Patient was seen this morning, nursing staff at bedside he is alert to person, not to place, not to time he does not follow commands easily falls back asleep, - Does not follow commands, on examinati on, has 2+ pitting edema bilateral extremities, he does have tenderness in the right upper quadrant, upon palpation, pupils are equal round reactive to light, no facial droop, he moves bilateral upper lower extremities difficult to assess his strength, more globally encephalopathic - I spoke to patient's in person, w ith the patient in the room - According to patient's , he had a stroke about a year ago he had right- sided deficits, she tells me he is significantly improved from it, somewhat so that he could ambulate on his own, he was back to his baseline - Then back in November, he had a stroke wi th left-sided deficits, for the stroke he was admitted at [facility] in [place], she tells me that since that stroke, he has had episodes of confusion, he has had good appetite, he is not very ambulatory, he has had a significant decline in his overall functionality since his stroke - This time he refused to come to the em ergency room - She tells me that he was having left-s ided weakness, left-sided shaking, increased confusion - She had called the EMS initially, but he had refused to come to the hospital - But due to persistent weakness, confus ion, diffuse shaking, they called EMS again and finally agreed to come to the hospital - Currently he is globally encephalopath ic, I have not noticed any seizure-like activity, but it sounds like he has had seizure activity, none currently - She tells me that he does become confu sed like this when he develops a UTI - Discussed his fever this morning I hav e placed him on antibiotic therapy - Will have PT OT, speech therapy eval o ngoing to do an MRI of his brain, - CT of his chest abdomen pelvis, he is tender in the right upper quadrant, CT abdomen imaging - We also discussed his overall goals of care she tells me that Bobby has voiced to her that he wants to be a DNR/DNI, he would not want a feeding tube Vitals/I&O/Wt Last Vital Signs Temp 100.9 F H 01/10/25 11:07 Pulse 77 01/10/25 11:07 Resp 16 05/10/25 11:07 BP 143/85 01/10/25 11:07 Pulse Ox 91 01/10/25 11:07 O2 Del Method Room Air 01/10/25 11:07 O2 Flow Rate 2 01/10/25 06:45 01/09/25 01/10/25 01/10/25 22:59 06:59 14:59 Intake Total 0 / 0 100 / 100 Balance 0 / 0 100 / 100 Weight last 48 hrs Weight 84.822 kg Weight 85.221 kg Weight 2.466 kg Physical Exam 2 Const: COMMON NORMALS: no acute distress Eye: COMMON NORMALS: Equal, round and reactive pupils present PUPIL: Yes Equal, round and reactive pupils present Resp: COMMON NORMALS: normal respiratory effort, No retractions, No use of accessory muscles and clear to auscultation bilaterally AUSCULTATION: clear to auscultation bilaterally Cardio: COMMON NORMALS: regular rate, regular rhythm, S1 normal heart sound present and S2 normal heart sound present RATE: regular rate RHYTHM: r egular rhythm HEART SOUNDS: S1 normal heart sound present and S2 normal heart sound present GI: COMMON NORMALS: Normal to inspection, nondistended, normoactive bowel sounds present OTHER: Right upper quadrant tenderness Extremity: NARRATIVE EXTREMITY EXAM: 2+ edema Data 01/10/25 05:15 01/10/25 05:15 Micro: Microbiology 01/10/25 09:42 Blood Culture - Preliminary Blood SPECIMEN COLLECTED 01/10/25 09:40 Blood Culture - Preliminary Blood SPECIMEN COLLECTED A&P Assessment and plan (1) Seizure: (2) Cerebrovascular accident: (3) Hypothyroidism: (4) Essential hypertension: (5) Low vitamin B12 level: Plan Global encephalopathy - Multifactorial - From seizure - From acute CVA - From infectious source such as aspiration pneumonia Concern for acute CVA History of prior stroke with residual right-sided deficit, according to family he is back to baseline Recent history of CVA, with left-sided deficits, since then has had a significant decline Now with concerns for CVA symptoms, to me currently has global encephalopathy, difficult to assess any focal symptoms, but reported left-sided weakness and tremors on admission -Symptoms began the morning of 01/09/2025, did not present to the emergency room until 10:30 PM 01/09/2025, out of tPA window -head CT CT/CT head thrombolytic [id number] IMPRESSION: 1. No evidence of acute intracranial process. 2. Right temporoparietal lobe gliosis and encephalomalacia likely due to an old ischemic or hemorrhagic event. 3. [id number] small vessel disease. cta head and neck CT/CT angio headneck* [id number] IMPRESSION: 1. Minimal flow identified in the V4 segment of the left vertebral artery. 2. Bilateral internal carotid artery stenosis. IMPRESSION: 1. 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 2. Right proximal internal carotid artery stenosis. Mild stenosis of the right carotid bulb. 3. Mild stenosis of the left carotid bulb/left vertebral artery origin. plan - Neurology consult - Dual antiplatelet therapy -High aspiration risk keep n.p.o. 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, statin, Plavix Right common carotid artery and proximal internal carotid artery with heavy plaque measuring 60% stenosis Left common artery and proximal internal carotid artery stenosis proximally 50% History of seizure disorder - Switch to IV levothyroxine Hypertension - Allow permissive hypertension Hyperlipidemia - Continue statin Hypothyroidism - Continue Synthroid 2+ pitting edema, will avoid diuresis for now as patient is not in respiratory compromise DVT prophylaxis: Lovenox PDMP PDMP Reviewed: Not Reviewed Attestations 2 Medical Necessity Statement*: Patient requires hospitalization for acute CVA, seizures, fever, encephalopathy Diagnoses Seizure R56.9 Cerebrovascular accident I63.89 CVA mechanism: other Hypothyroidism E03.9 Essential hypertension I10 Low vitamin B12 level R79.89
--- OUTSIDE RECORDS SUMMARY | 2025-01-10 13:53 | XMS_ITS | Clinical Summary ---
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 Impaired mobility and ADLs 11/23/2023 Acute ischemic stroke 11/22/2023 Other specified hypothyroidism 11/22/2023 Benign hypertension 11/22/2023 Hyponatremia 11/22/2023 Benign prostatic hyperplasia without lower urinary tract symptoms 11/22/2023 Generalized muscle weakness 04/12/2022 Dizziness 04/12/2022 Fall 04/12/2022 UTI (urinary tract infection) 04/12/2022 Unspecified bacterial pneumonia 04/12/2022 Leukocytosis (leucocytosis) 04/12/2022 Family History Medical History Relation Name Comments No Known Problems Father No Known Problems Mother Relation Name Status Comments Father Mother Social History Tobacco Use Types Packs/Day Years Used Date Smoking Tobacco: Former Smokeless Tobacco: Current Chew Alcohol Use Standard Drinks/Week Comments Not Currently 0 (1 standard drink = 0.6 oz pur e alcohol) Feeling Safe Answer Date Recorded Are you in a relationship wi th someone who hurts you emotionally and/or physically? No 11/22/2023 Food Insecurity Answer Date Recorded Social/Environmental Concerns No concerns Transportation Needs Answer Date Record ed Social/Environmental Concerns No concerns Housing Stability Answer Date Recorded Social/Environmental Concerns No concerns Utility Needs Answer Date Recorded Social/Environmental Concerns No concerns Education Answer Date Recorded What is the highest level of school you have completed or the highest degree you have received? 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 Gender Identity Not on file Sexual Orientation Not on file Last Filed Vital Signs Vital Sign Reading Time Taken Comments Blood Pressure 116/71 12/06/2023 8:05 AM CDT Pulse 67 12/06/2023 6:00 AM CDT Temperature 36.6 C (97.8 F) 12/06/2023 6:00 AM CDT Respiratory Rate 18 12/06/2023 6:00 AM CDT Oxygen Saturation 93% 12/06/2023 6:00 AM CDT Inhaled Oxygen Concentration - - Weight 89.8 kg (197 lb 14.4 oz) 12/06/2023 6:00 AM CDT Height 170.2 cm (5' 7 ) 11/22/2023 6:00 PM CDT Body Mass Index 31 11/22/2023 6:00 PM CDT Plan of Treatment Health Maintenance Due Date Last Done Comments DTAP/TDAP/TD VACCINES (1 - Tdap) 01/30/1954 PNEUMOCOCCAL VACCINE 50+ YEARS (1 of 1 - PCV) 01/30/19 86 ZOSTER VACCINE (1 of 2) 01/30/1986 RSV VACCINE (60+ or ) (1 - 1-dose 75+ series) 01/30/2011 INFLUENZA VACCINE (#1) 2024 Insurance MEDICARE HMO Advance Directives For more information, please contact: [phone] * NO CPR (In Event of Cardiopulmonary Arrest) (Latest Code Status on File) Date Activated Date Inactivated Comments 11/26/2023 1:59 PM 12/06/2023 1:12 PM Question Answer Comments Mechanical Ventilation (for respiratory distress) - Invasive (i.e. intubation): No Mechanical Ventilation (for respiratory distress) - Non-Invasive (i.e. BiPAP, CPAP): No * NO CPR (In Event of Cardiopulmonary Arrest) Date Activated Date Inactivated Comments 11/22/2023 5:50 PM 11/26/2023 1:59 PM Question Answer Comments Mechanical Ventilation (for respiratory distress) - Invasive (i.e. intubation): No Mechanical Ventilation (for respiratory distress) - Non-Invasive (i.e. BiPAP, CPAP): No * Full Code Date Activated Date Inactivated Comments 04/12/2022 1:19 AM 04/14/2022 1:56 PM Care Teams Food Product Inspector Relationship Specialty Start Date End Date Christine Oakes MD [address] [place] [id number] PCP - General Family Practice 04/12/22
[2025-01-10] MEDS: aspirin 300 mg Supp PR (15:28)
[2025-01-10 16:04] LABS: Influenza A NEGATIVE (Negative); Influenza B NEGATIVE (Negative); Respiratory Syncytial Virus Ce NEGATIVE (Negative); SARS-CoV-2 PCR NEGATIVE (Negative)
[2025-01-10 23:55] LABS: Glucose Point of Care 87 mg/dL (70-110)
[2025-01-11] VITALS: BP 124/57; PULSE 82; RESP 18; TEMP 36.8; O2SAT 94
[2025-01-11 04:00] VITALS: BP 141/64; PULSE 60; RESP 18; TEMP 36.7; O2SAT 94
[2025-01-11] MEDS: levETIRAcetam 1,000 MG/100 ML PREMIX 400 MG IV ×2 (04:18→17:23)
[2025-01-11 05:56] LABS: Basophils # 0.1 10^3/uL (0.0-0.1); Basophils % 0.8 %; Eosinophils # 0.5 10^3/uL (0.0-0.8); Eosinophils % 6.7 %; Lymphocytes # 2.1 10^3/uL (0.8-4.8); Lymphocytes % 27.4 %; Mean Corpuscular HGB Conc 32.1 g/dL (30-55); Mean Corpuscular Hemoglobin 31.2 pg (27-33); Mean Corpuscular Volume 97.1 fl (82-101); Mean Platelet Volume 10.4 fL (7.4-10.4); Monocytes # 0.9 10^3/uL (0.2-0.9); Monocytes % 11.8 %; Neutrophils # 4.06 10^3/uL (1.8-7.7); Nucleated Red Blood Cells % 0 %; Platelet Count 167 10^3/cmm (157-399); Red Cell Distribution Width 14.5 % (12.1-15.1); White Blood Count 7.64 10^3/uL (3.29-11.43)
[2025-01-11 06:13] LABS: Chol HDL Ratio 2.95 mg/dL (1.0-5.00); Cholesterol 115 mg/dL (0-200); HDL Cholesterol 39 mg/dL (60-100); LDL Cholesterol Calculated 63 mg/dL (50-129); LDL HDL Ratio 1.62 RATIO (0.00-3.22); Triglycerides 67 mg/dL (0-150)
[2025-01-11 06:14] LABS: Alanine Aminotransferase 9 U/L (0-41); Albumin Level 2.7 g/dL (3.5-5.2); Alkaline Phosphatase 97 U/L (40-130); Anion Gap 10.4 (5-19); Aspartate Amino Transferase 16 U/L (0-40); Blood Urea Nitrogen 9 mg/dL (8-23); Calcium 7.9 mg/dL (8.5-10.5); Carbon Dioxide 30 mmol/L (22-29); Chloride 103 mmol/L (98-107); Creatinine Clr Calc Pharmacy 59.3002; Globulin 2.5 g/dL (1.3-4.6); Glucose 83 mg/dL (65-115); Magnesium 1.6 mg/dL (1.7-2.3); Osmolality Calculated 288 mOsm/kg (285-295); Phosphorus 2.7 mg/dL (2.5-4.5); Potassium 3.4 mmol/L (3.5-5.1); Sodium 140 mmol/L (136-145); Total Bilirubin 0.6 mg/dL (0.15-1.2); Total Protein 5.2 g/dL (6.6-8.7)
[2025-01-11 06:18] LABS: Estmated Average Glucose 100; Hemoglobin A1C 5.1 % (4.0-6.0)
[2025-01-11] MEDS: enoxaparin 40 mg/0.4 mL Syringe SUBCUT (06:40)
--- NOTE | 2025-01-11 06:51 | PC.NURSE ---
Addendum entered by Shannan Azul LPN 01/11/25 06:52: This nurse was also unable to complete NIH stroke scale due to patient being lethargic. Original Note: Nurse was unable to give PO medications due to patient being too lethargic.
[2025-01-11 07:35] VITALS: BP 136/61; PULSE 58; RESP 18; TEMP 37.1; O2SAT 91
--- NOTE | 2025-01-11 08:55 | P.PN_ITS ---
Subjective 2 Subjective: Patient was seen this morning, is alert to person, not place, to time, he can follow some commands, easily becomes confused, he moves bilateral upper and lower extremities, is difficult to do neurologic testing given his global encephalopathy, continues to have high aspiration risk, evidence of coughing and choking evaluate will keep n.p.o. for now until he has a modified barium swallow tomorrow Vitals/I&O/Wt Last Vital Signs Temp 98.8 F 01/11/25 07:35 Pulse 58 L 01/11/25 07:35 Resp 18 01/11/25 07:35 BP 136/61 01/11/25 07:35 Pulse Ox 91 01/11/25 07:35 O2 Del Method Room Air 01/11/25 07:35 O2 Flow Rate 2 01/10/25 06:45 01/10/25 01/11/25 01/11/25 22:59 06:59 14:59 Intake Total 100 / 450 100 / 550 Balance 100 / 450 100 / 550 Weight last 48 hrs Weight 85.593 kg Weight 84.822 kg Weight 85.221 kg Weight 2.466 kg Physical Exam 2 Const: COMMON NORMALS: no acute distress ORIENTATION/CONSCIOUSNESS: Yes awake, Yes oriented to person and Yes oriented to place; not oriented to time Resp: COMMON NORMALS: normal respiratory effort, No retractions, No use of accessory muscles and clear to auscultation bilaterally AUSCULTATION: clear to auscultation bilaterally Cardio: COMMON NORMALS: regular rate, regular rhythm, S1 normal heart sound present and S2 normal heart sound present RATE: regular rate RHYTHM: r egular rhythm HEART SOUNDS: S1 normal heart sound present and S2 normal heart sound present GI: COMMON NORMALS: Normal to inspection, nondistended, normoactive bowel sounds present and non-tender Extremity: NARRATIVE EXTREMITY EXAM: 1+Edema Neuro: SENSORIUM/ORIENTATION: Yes oriented to person, Yes oriented to place and No oriented to time Psych: COMMON NORMALS: mental status grossly normal Data 01/11/25 05:48 01/11/25 05:48 Micro: Microbiology 01/10/25 09:42 Blood Culture - Preliminary Blood SPECIMEN COLLECTED 01/10/25 09:40 Blood Culture - Preliminary Blood SPECIMEN COLLECTED A&P Assessment and plan (1) Seizure: (2) Cerebrovascular accident: (3) Hypothyroidism: (4) Essential hypertension: (5) Low vitamin B12 level: Plan Global encephalopathy - Multifactorial - From seizure - From acute CVA - From infectious source such as aspiration pneumonia Concern for acute CVA History of prior stroke with residual right-sided deficit, according to family he is back to baseline Recent history of CVA, with left-sided deficits, since then has had a significant decline Now with concerns for CVA symptoms, to me currently has global encephalopathy, difficult to assess any focal symptoms, but reported left-sided weakness and tremors on admission -Symptoms began the morning of 01/09/2025, did not present to the emergency room until 10:30 PM 01/09/2025, out of tPA window -head CT CT/CT head thrombolytic [id number] IMPRESSION: 1. No evidence of acute intracranial process. 2. Right temporoparietal lobe gliosis and encephalomalacia likely due to an old ischemic or hemorrhagic event. 3. [id number] small vessel disease. cta head and neck CT/CT angio headneck* [id number] IMPRESSION: 1. Minimal flow identified in the V4 segment of the left vertebral artery. 2. Bilateral internal carotid artery stenosis. IMPRESSION: 1. 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 2. Right proximal internal carotid artery stenosis. Mild stenosis of the right carotid bulb. 3. Mild stenosis of the left carotid bulb/left vertebral artery origin. MRI brain MR/MR head wo con* [id number] IMPRESSION: 1. No evidence of acute intracranial abnormality. 2. Multifocal encephalomalacia. plan - Neurology consult - Dual antiplatelet therapy -High aspiration risk keep n.p.o. 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, statin, Plavix Right common carotid artery and proximal internal carotid artery with heavy plaque measuring 60% stenosis Left common artery and proximal internal carotid artery stenosis proximally 50% History of seizure disorder - Switch to IV levothyroxine Hypertension - Allow permissive hypertension Hyperlipidemia - Continue statin Hypothyroidism - Continue Synthroid 2+ pitting edema, will avoid diuresis for now as patient is not in respiratory compromise DVT prophylaxis: Lovenox PT and OT, when speaking female, Modifications: Continue IV antibiotics PDMP PDMP Reviewed: Not Reviewed Attestations 2 Medical Necessity Statement*: Patient requires hospitalization for global encephalopathy, acute CVA, seizures, 54 Diagnoses Seizure R56.9 Cerebrovascular accident I63.89 CVA mechanism: other Hypothyroidism E03.9 Essential hypertension I10 Low vitamin B12 level R79.89
[2025-01-11] MEDS: clopidogrel 75 mg Tablet PO (09:04)
[2025-01-11] MEDS: levothyroxine 25 mcg Tablet PO (09:05)
[2025-01-11] MEDS: ALPRAZolam 0.5 mg Tablet 0.25 MG PO ×2 (09:05→17:23)
[2025-01-11] MEDS: cefTRIAXone 1,000 mg SDV 1000 MG IVP (09:06)
[2025-01-11 11:17] VITALS: BP 128/58; PULSE 58; RESP 17; TEMP 36.9; O2SAT 90
[2025-01-11] MEDS: AZITHROMYCIN ADD-Vantage 500 MG in 0.9% NaCl ADD-Vantage 250 ML 250 MG IV (11:18)
[2025-01-11 16:00] VITALS: BP 162/67; PULSE 71; RESP 18; TEMP 36.7; O2SAT 92
--- NOTE | 2025-01-11 17:33 | PC.NURSE ---
pt educated on importance of vte prophylaxis and risks if scds are not wore. pt understands risks and refused scds at this time.
[2025-01-11 20:00] VITALS: BP 183/77; PULSE 80; RESP 16; TEMP 36.4; O2SAT 96
[2025-01-12] VITALS (7 sets, daily range): BP systolic 165–178; BP diastolic 69–92; PULSE 54–76; RESP 16–18; TEMP 36.4–36.9; O2SAT 90–97
[2025-01-12] MEDS: levETIRAcetam 1,000 MG/100 ML PREMIX 400 MG IV ×2 (04:12→16:56)
[2025-01-12] MEDS: enoxaparin 40 mg/0.4 mL Syringe SUBCUT (06:29)
[2025-01-12 07:00] LABS: Basophils # 0.1 10^3/uL (0.0-0.1); Basophils % 1.1 %; Eosinophils # 0.7 10^3/uL (0.0-0.8); Eosinophils % 10.4 %; Hematocrit 36.7 % (37-53); Lymphocytes # 1.8 10^3/uL (0.8-4.8); Lymphocytes % 26.7 %; Mean Corpuscular HGB Conc 32.2 g/dL (30-55); Mean Corpuscular Hemoglobin 31.6 pg (27-33); Mean Corpuscular Volume 98.4 fl (82-101); Mean Platelet Volume 10.5 fL (7.4-10.4); Monocytes # 0.7 10^3/uL (0.2-0.9); Monocytes % 10.7 %; Neutrophils # 3.34 10^3/uL (1.8-7.7); Neutrophils % 50.9 %; Nucleated Red Blood Cells % 0 %; Platelet Count 183 10^3/cmm (157-399); Red Blood Count 3.73 10^6/uL (3.85-5.65); Red Cell Distribution Width 14.1 % (12.1-15.1); White Blood Count 6.55 10^3/uL (3.29-11.43)
[2025-01-12 07:21] LABS: Alanine Aminotransferase 11 U/L (0-41); Albumin Level 2.6 g/dL (3.5-5.2); Alkaline Phosphatase 103 U/L (40-130); Anion Gap 14.4 (5-19); Aspartate Amino Transferase 22 U/L (0-40); Blood Urea Nitrogen 9 mg/dL (8-23); Calcium 8.1 mg/dL (8.5-10.5); Carbon Dioxide 25 mmol/L (22-29); Chloride 104 mmol/L (98-107); Creatinine Clr Calc Pharmacy 65.9429; Globulin 3.2 g/dL (1.3-4.6); Glucose 71 mg/dL (65-115); Magnesium 1.6 mg/dL (1.7-2.3); Osmolality Calculated 287 mOsm/kg (285-295); Phosphorus 2.6 mg/dL (2.5-4.5); Potassium 3.4 mmol/L (3.5-5.1); Sodium 140 mmol/L (136-145); Total Bilirubin 0.6 mg/dL (0.15-1.2); Total Protein 5.8 g/dL (6.6-8.7)
--- NOTE | 2025-01-12 09:03 | FL_ITS ---
WS: [id number] Exam: FL barium swallow modifd [id number] Date/Time of Exam: 01/12/2025 9:50 AM Reason For Exam: Oral dysphagia Fluoroscopy time: 5min [id number] minutes # of spot films: 0 Modified barium swallow test was performed in conjunction with the speech therapy service. The patient aspirated when administered thin liquid barium solution. There was mild penetration into the laryngeal inlet when the patient ingested nectar consistency barium. The patient tolerated pudding consistency barium foodstuffs without difficulty. The patient swallowed a barium tablet without difficulty. The tablet was retained in the mid esophagus but was propelled into the stomach with administration of pudding consistency barium. FL/FL barium swallow modifd [id number] IMPRESSION: 1. Positive exam for aspiration when the patient ingested thin liquid barium. 2. Penetration into the laryngeal inlet when the patient ingested nectar consis tency barium foodstuffs. A separate report with recommendations will follow from the speech therapy serv ice.
--- NOTE | 2025-01-12 09:08 | PC.CHAP ---
Pastoral Care Encounter/Spiritual Assessment Type of Contact [] Declined agent licensing clerk visit [] Patient/Family/Request visit [] Outpatient visit [] Follow-up visit [] Physician referral [] Code/Alert [x] Routine visit [] Staff referral [] Actively dying [x] Patient sleeping [] Family support [] [] Out of room [] Palliative care [] [] Receiving care in room [] Pre-surgical visit [] Trauma [] Long length of stay [] ICU visit [] Other: Relational/Emotional Strength [] Patient feels connected with others/family/visitors/staff [] Distress [] Loneliness/isolation [] Abandonment Spirituality of Patient [] Person of Tena [] Attends Amish of their Tena [] Believes in Prayer [] Reads Bible or Muslim materials [] There are Spiritual issues to be addressed Station Cashier Interventions [x] Prayer [] Active listening [] Non-anxious presence [] Spiritual/emotional support [] Crisis/trauma care [] Spiritual counseling [] Bereavement support [] Provided bereavement packet [] Provided Bible/devotional materials [] Provided toy/stuffed animal, coloring book to patient or family member [] Provided Communion [] Anointing/[place] [] Salvation [] Completed spiritual assessment [] Other: Impact on Illness or Injury [] Angry [] Fearful [] Anxious [] Often cries [] Exhaustion [] Unable to work [] Unable to attend christian [] Unable to walk/stand [] Unable to read [] Unable to drive [] Unable to eat/drink [] Unable to sleep [] Unable to be with family [] Patient intubated [] Other: Summary Time spent with patient
[2025-01-12] MEDS: cefTRIAXone 1,000 mg SDV 1000 MG IVP (10:59)
[2025-01-12] MEDS: AZITHROMYCIN ADD-Vantage 500 MG in 0.9% NaCl ADD-Vantage 250 ML 250 MG IV (10:59)
[2025-01-12] MEDS: levothyroxine 25 mcg Tablet PO (12:00)
[2025-01-12] MEDS: clopidogrel 75 mg Tablet PO (12:00)
[2025-01-12] MEDS: ALPRAZolam 0.5 mg Tablet 0.25 MG PO ×2 (12:00→18:05)
[2025-01-12] MEDS: lisinopril 5 mg Tablet PO (12:06)
[2025-01-12] MEDS: lidocaine 1% 5 ML in potassium chloride premix 100 ML 26.25 ML IV (12:12)
[2025-01-12] MEDS: magnesium sulfate premix 1 GM/100 ML PIGGYBACK IV (12:13)
[2025-01-12 12:23] LABS: Iron 40 ug/dL (59-158); Percent Saturation 26.3 % (20-50); Thyroid Stimulating Hormone 0.25 uIU/mL (0.27-4.20); Total Iron Binding Capacity 152 mcg/dl; Unsaturated Iron Binding 112 ug/dL (112-347); Vitamin B12 753 pg/mL (232-1245)
--- NOTE | 2025-01-12 14:15 | P.PN_ITS ---
Subjective 2 Subjective: Hospital course, labs appreciated. Seen with family at bedside. Patient laying comfortably in bed. Denies any nausea, vomiting, headache. Remains on room air. Awake and alert. Vitals/I&O/Wt Last Vital Signs Temp 98.3 F 01/12/25 12:06 Pulse 67 01/12/25 12:06 Resp 18 01/12/25 12:06 BP 167/77 01/12/25 12:06 Pulse Ox 92 01/12/25 12:06 O2 Del Method Room Air 01/12/25 12:06 O2 Flow Rate 2 01/10/25 06:45 01/11/25 01/12/25 01/12/25 22:59 06:59 14:59 Intake Total 100 / 350 100 / 450 350 / 350 Balance 100 / 350 100 / 450 350 / 350 Weight last 48 hrs Weight 83.461 kg Weight 85.593 kg Physical Exam 2 Narrative: General: Patient is awake. Head: Normocephalic. Atraumatic. EOM intact. Hard of hearing. Neck: No JVD. Cardiovascular: RRR. No gallops. No murmurs. 2+ pitting edema in lower extremities bilaterally. Lungs: Clear to auscultation, no use of accessory muscles, no crackles or wheezes. Skin: No jaundice. No rashes. Abdomen: Normal bowel sounds, abdomen soft and nontender. Genito Urinary: Genital exam not performed since complaints not related. Rectal: Rectal exam not performed since no symptoms indicated blood loss. Extremities: No cyanosis or clubbing. Musculoskeletal: No erythematous joints. Neurological: Cranial nerves II through XII grossly intact. Patient is tremulous, worse in upper extremities slightly worse on the right side as compared to left. His left sided extremities are weak. Follows commands poorly which makes a full neurological assessment difficult. Data 01/12/25 06:42 01/12/25 06:42 Micro: Microbiology 01/10/25 05:30 Urine Culture - Final Urine,Clean Catch 01/10/25 09:42 Blood Culture - Preliminary Blood NEGATIVE TO DATE 01/10/25 09:40 Blood Culture - Preliminary Blood NEGATIVE TO DATE A&P Assessment and plan (1) Seizure: (2) Cerebrovascular accident: (3) Hypothyroidism: (4) Essential hypertension: (5) Low vitamin B12 level: Plan Global encephalopathy - Multifactorial. Most likely in setting of possible seizure though cannot rule out in setting of acute CVA or possible infectious in nature due to aspiration pneumonia. Resolving. Concern for acute CVA History of prior stroke with residual right-sided deficit, according to family he is back to baseline Recent history of CVA, with left-sided deficits, since then has had a significant decline Now with concerns for CVA symptoms, to me currently has global encephalopathy, difficult to assess any focal symptoms, but reported left-sided weakness and tremors on admission -Symptoms began the morning of 01/09/2025, did not present to the emergency room until 10:30 PM 01/09/2025, out of tPA window Appreciate neurology consult. Continue with aspirin, Plavix, statin. Goal blood pressure less than 140/90 mmHg. Restart home dose of lisinopril. No more permissible hypertension. Neurochecks. Will uptitrate antihypertensive as needed. Febrile episode: Up to 101.9 Fahrenheit on admission. Cannot rule out infectious etiology though could be in setting of seizures. No leukocytosis. Follow-up blood cultures. Cannot rule out aspiration pneumonia. Continue with azithromycin and ceftriaxone for now. UA within normal limits. If spikes fever again will plan for respiratory viral panel. Focal motor seizures: History of seizures in the past. Not able to take oral Keppra at home because he was not able to swallow as per caregiver. Continue with IV Keppra for now. Aspiration pneumonia: Advance diet as per speech evaluation. Modified barium swallow. N.p.o. except meds for now. Mitts to pudding. Oxygen supplementation keeping saturation of 90%. Antibiotic as above. Right common carotid artery and proximal internal carotid artery with heavy plaque measuring 60% stenosis Left common artery and proximal internal carotid artery stenosis proximally 50% DNR/DNI Lovenox for DVT prophylaxis Famotidine for PUD prophylaxis. PDMP PDMP Reviewed: Not Reviewed Attestations 2 Medical Necessity Statement*: Requires further hospitalization for management of encephalopathy in setting of possible CVA, seizure disorder, aspiration pneumonia while safe discharge planning is sought, diet is advanced as per speech evaluation Diagnoses Seizure R56.9 Cerebrovascular accident I63.89 CVA mechanism: other Hypothyroidism E03.9 Essential hypertension I10 Low vitamin B12 level R79.89
[2025-01-12] MEDS: famotidine 20 mg/2 mL INJ IVP (14:37)
--- NOTE | 2025-01-12 17:01 | PC.OT ---
OT Evaluation withheld this date. Patient is fast asleep and attempted to wake him up on 3 occasions but to no avail.To attempt to evaluate on a later date. Nursing notified.
[2025-01-12 19:22] LABS: Free T4 Free Thyroxine 1.38 ng/dL (0.82-1.77); T3 Free 1.9 PG/ML (2.0-4.4)
[2025-01-12] MEDS: atorvastatin 40 mg Tablet PO (20:50)
[2025-01-13] VITALS: BP 184/72; PULSE 59; RESP 16; TEMP 37; O2SAT 97
[2025-01-13] MEDS: famotidine 20 mg/2 mL INJ IVP (02:05)
[2025-01-13] MEDS: levETIRAcetam 1,000 MG/100 ML PREMIX 400 MG IV (03:56)
[2025-01-13 04:00] VITALS: BP 169/72; PULSE 60; RESP 18; TEMP 36.4; O2SAT 90
[2025-01-13 05:25] LABS: Basophils # 0.1 10^3/uL (0.0-0.1); Basophils % 0.9 %; Eosinophils # 0.7 10^3/uL (0.0-0.8); Eosinophils % 8.4 %; Lymphocytes # 2.2 10^3/uL (0.8-4.8); Lymphocytes % 27.8 %; Mean Corpuscular HGB Conc 32.9 g/dL (30-55); Mean Corpuscular Hemoglobin 31.3 pg (27-33); Mean Corpuscular Volume 95.1 fl (82-101); Mean Platelet Volume 10.7 fL (7.4-10.4); Monocytes # 0.8 10^3/uL (0.2-0.9); Monocytes % 10.1 %; Neutrophils # 4.14 10^3/uL (1.8-7.7); Neutrophils % 52.4 %; Nucleated Red Blood Cells % 0 %; Platelet Count 192 10^3/cmm (157-399); Red Blood Count 3.68 10^6/uL (3.85-5.65); Red Cell Distribution Width 13.9 % (12.1-15.1); White Blood Count 7.89 10^3/uL (3.29-11.43)
[2025-01-13 05:49] LABS: Alanine Aminotransferase 13 U/L (0-41); Alkaline Phosphatase 105 U/L (40-130); Anion Gap 14.6 (5-19); Aspartate Amino Transferase 26 U/L (0-40); Blood Urea Nitrogen 9 mg/dL (8-23); Calcium 8.2 mg/dL (8.5-10.5); Carbon Dioxide 26 mmol/L (22-29); Chloride 101 mmol/L (98-107); Creatinine Clr Calc Pharmacy 65.9429; Globulin 3.2 g/dL (1.3-4.6); Glucose 80 mg/dL (65-115); Osmolality Calculated 284 mOsm/kg (285-295); Phosphorus 2.1 mg/dL (2.5-4.5); Potassium 3.6 mmol/L (3.5-5.1); Sodium 138 mmol/L (136-145); Total Bilirubin 0.7 mg/dL (0.15-1.2); Total Protein 6.2 g/dL (6.6-8.7)
[2025-01-13 05:50] LABS: Magnesium 1.7 mg/dL (1.7-2.3)
[2025-01-13 06:05] LABS: Folate Level 4.8 ng/mL (4.5-32.2)
[2025-01-13] MEDS: enoxaparin 40 mg/0.4 mL Syringe SUBCUT (06:48)
[2025-01-13] MEDS: cyanocobalamin 1,000 mcg Tablet 2000 MCG PO (06:48)
[2025-01-13 07:13] VITALS: BP 172/90; PULSE 70; RESP 18; TEMP 36.7; O2SAT 95
[2025-01-13] MEDS: levothyroxine 25 mcg Tablet PO (09:54)
[2025-01-13] MEDS: clopidogrel 75 mg Tablet PO (09:55)
[2025-01-13] MEDS: ALPRAZolam 0.5 mg Tablet 0.25 MG PO (09:55)
--- NOTE | 2025-01-13 10:20 | P.DS_ITS ---
Discharge Providers Date of Admission: 01/10/25 05:47 Date of Discharge: January 13, 2025 Attending Provider at Admission: Andriy Landrum MD Attending Provider at Discharge: Harlan Moore MD Consults: Neurology: Dr. Cesar Primary Care Provider: Isa Lopez APN Diagnoses at Discharge Discharge Diagnosis (1) Seizure: Status: Acute (2) Cerebrovascular accident: Status: Acute Qualifiers: CVA mechanism: other Qualified Code(s): I63.89 - Other cerebral infarction (3) Hypothyroidism: Status: Acute (4) Essential hypertension: Status: Acute (5) Low vitamin B12 level: Status: Acute Reason for Visit Reason for Visit: WEAKNESS Brief History: History as per HPI: Bobby Way is a 89 year old male with a past medical history significant for stroke with history of right-sided weakness, hyponatremia, hypothyroidism, benign prostatic hypertrophy, and multiple other comorbidities who presents with strokelike symptoms. Reports onset last night at 10:30 PM. Describes symptoms as left-sided weakness with associated tremors. He has a history of prior stroke with reported right-sided weakness and history of seizure following the stroke. He reports this morning upon awakening the symptoms were worse. He reports uncontrolled twitching for which he ultimately decided to get evaluated. Denies other alleviating or aggravating factors. Denies chest pain, fevers or chills. He is found to be a poor historian on exam. Head CT was negative for acute intracranial processes. Head and neck CTA showed minimal flow in the V4 segment of the left vertebral artery, bilateral internal carotid artery stenosis. ED provider reports he discussed patient with Dr. Cesar who recommended admission and dual antiplatelet therapy. Hospital Course Hospital Course He was admitted to the hospital further evaluation and management of altered mental status with concerns for strokelike symptoms versus seizure disorder. Neurology was consulted in the ER and acute stroke and need for tenecteplase was ruled out. There was a concern for possible breakthrough seizures as he was not able to get his medications orally at home for which he was started on IV Keppra. He responded well to the treatment and was back to his baseline menta tion. There was concern for aspiration pneumonia for which he was started on broad-spectrum antibiotics. Speech therapy evaluation was sought and his diet was advanced as per barium swallow. He is been discharged in hemodynamically stable condition on adjusted oral antihypertensive, antibiotic for 3 more days with advised to follow-up as an outpatient with PT and speech therapy. Home health is being arranged. Physical Exam Narrative: General: Patient is awake. Head: Normocephalic. Atraumatic. EOM intact. Hard of hearing. Neck: No JVD. Cardiovascular: RRR. No gallops. No murmurs. 2+ pitting edema in lower extremities bilaterally. Lungs: Clear to auscultation, no use of accessory muscles, no crackles or wheezes. Skin: No jaundice. No rashes. Abdomen: Normal bowel sounds, abdomen soft and nontender. Genito Urinary: Genital exam not performed since complaints not related. Rectal: Rectal exam not performed since no symptoms indicated blood loss. Extremities: No cyanosis or clubbing. Musculoskeletal: No erythematous joints. Neurological: Cranial nerves II through XII grossly intact. Patient is tremulous, worse in upper extremities slightly worse on the right side as compared to left. His left sided extremities are weak. Follows commands poorly which makes a full neurological assessment difficult. Discharge Data Studies Completed and Pending Completed Studies During Hospitalization Category Date Time Status CT angio headneck* [id number] Stat Cat Scan 01/10/25 04:[address] chest abdomen pelvis [[place] [id number] Cat Scan 01/10/25 10:45 Completed ] Routine CT head thrombolytic [id number] Stat Cat Scan 01/10/25 04:50 Completed [place] barium swallow modifd [id number] Routine Exams 01/12/25 09:03 Completed XR chest 1V portable [id number] Stat Exams 01/10/25 04:49 Completed MR head wo con* [id number] Routine MRI 01/10/25 08:04 Completed CV. echo complete* [id number] Routine Ultrasound 01/10/25 07:36 Completed Pending at discharge Category Date Time Status Blood Culture Stat Lab 01/10/25 09:42 Results MAG [Magnesium] AM LABS Lab 01/14/25 04:00 Ordered MAG [Magnesium] AM LABS Lab 01/15/25 04:00 Ordered Radiology Impressions Chest X-Ray 01/10/25 04:49 IMPRESSION: 1. No evidence of acute pulmonary process. 2. Scattered reticular opacities which can be seen with interstitial lung disease. Head/Neck CTA 01/10/25 04:49 IMPRESSION: 1. Minimal flow identified in the V4 segment of the left vertebral artery. 2. Bilateral internal carotid artery stenosis. IMPRESSION: 1. 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 2. Right proximal internal carotid artery stenosis. Mild stenosis of the right carotid bulb. 3. Mild stenosis of the left carotid bulb/left vertebral artery origin. REFERENCES: NASCET CRITERIA. The degree of stenosis in the cervical segment of the internal carotid artery is based on NASCET criteria. Normal is no stenosis. Mild is less than 50% stenosis. Moderate is 50-69% stenosis. Severe is 70% to 99% stenosis. Total occlusion is no detectable patent lumen. ADDENDUM: 01/10/25 0542 THIS REPORT CONTAINS FINDINGS THAT MAY BE CRITICAL TO PATIENT CARE. The findings were verbally communicated via telephone conference with ROLAND RIZVI at 5:40 AM CDT on 01/10/2025. The findings were acknowledged and understood. Head CT 01/10/25 04:50 IMPRESSION: 1. No evidence of acute intracranial process. 2. Right temporoparietal lobe gliosis and encephalomalacia likely due to an old ischemic or hemorrhagic event. 3. [id number]-[id number] small vessel disease. ASSESSMENT: ASPECTS ([place] Stroke Program Early CT Score) is 10. ADDENDUM: 01/10/25 0520 THIS REPORT CONTAINS FINDINGS THAT MAY BE CRITICAL TO PATIENT CARE. The findings were verbally communicated via telephone conference with ROLAND RIZVI at 5:18 AM CDT on 01/10/2025. The findings were acknowledged and understood. Head MRI 01/10/25 08:04 IMPRESSION: 1. No evidence of acute intracranial abnormality. 2. Multifocal encephalomalacia. Chest/Abdomen/Pelvis CT 01/10/25 10:45 IMPRESSION: 1. No evidence of acute abnormality within limitations of a noncontrast exam. 2. Interstitial lung disease. IMPRESSION: 1. No evidence of acute abnormality in the abdomen or pelvis within limitations of a noncontrast exam. Modified Barium Swallow 01/12/25 09:03 IMPRESSION: 1. Positive exam for aspiration when the patient ingested thin liquid barium. 2. Penetration into the laryngeal inlet when the patient ingested nectar consistency barium foodstuffs. A separate report with recommendations will follow from the speech therapy s milena. Microbiology 01/10/25 05:30 Urine,Clean Catch Urine Culture - Final 01/10/25 09:42 Blood Blood Culture - Preliminary NEGATIVE TO DATE 01/10/25 09:40 Blood Blood Culture - Preliminary NEGATIVE TO DATE Echocardiogram: CONCLUSIONS Normal left ventricular size and systolic function, EF 59%. No regional wall motion abnormalities. Mild left ventricular hypertrophy. Grade I/IV diastolic dysfunction (abnormal relaxation filling pattern), normal to mildly elevated filling pressures. Trace mitral valve regurgitation. Thickened aortic valve. Trace aortic valve regurgitation. Rhym-jn-[id number] tricuspid valve regurgitation. Moderate pulmonary hypertension. Estimated pulmonary artery peak systolic pressure 64 mmHg. Mild pulmonary valve regurgitation. There is no pericardial effusion. There are no intracardiac masses. Compared to the study from 11/16/2023, the pulmonary hypertension appears to be new. However because of the technical differences in the technical quality, the reliability is questionable Dr Jefry Agudelo MD [facility] (Electronically Signed) Final Date: 10 Jan 2025 20:59 Laboratory Results WBC 7.89 10^3/uL (3.29-11.43) 01/13/25 05:04 RBC 3.68 10^6/uL (3.85-5.65) L 01/13/25 05:04 Hgb 11.50 g/dL (11.27-16.99) 01/13/25 05:04 Hct 35.0 % (37-53) L 01/13/25 05:04 MCV 95.1 fl (82-101) 01/13/25 05:04 MCH 31.3 pg (27-33) 01/13/25 05:04 MCHC 32.9 g/dL (30-55) 01/13/25 05:04 RDW 13.9 % (12.1-15.1) 01/13/25 05:04 Plt Count 192 10^3/cmm (157-399) 01/13/25 05:04 MPV 10.7 fL (7.4-10.4) H 01/13/25 05:04 Neut % (Auto) 52.4 % 01/13/25 05:04 Lymph % (Auto) 27.8 % 01/13/25 05:04 [place] % (Auto) 10.1 % 01/13/25 05:04 Eos % (Auto) 8.4 % 01/13/25 05:04 Baso % (Auto) 0.9 % 01/13/25 05:04 Neut # (Auto) 4.14 10^3/uL (1.8-7.7) 01/13/25 05:04 Lymph # (Auto) 2.2 10^3/uL (0.8-4.8) 01/13/25 05:04 [place] # (Auto) 0.8 10^3/uL (0.2-0.9) 01/13/25 05:04 Eos # (Auto) 0.7 10^3/uL (0.0-0.8) 01/13/25 05:04 Baso # (Auto) 0.1 10^3/uL (0.0-0.1) 01/13/25 05:04 Nucleated RBC % (auto) 0 % 01/13/25 05:04 Nucleated RBCs # 0.0 /100WBC 01/13/25 05:04 ESR 2 mm/hr (0-10) 01/10/25 05:15 PT 13.70 SECONDS (12.1-14.9) 01/10/25 05:15 INR 0.98 (0.8-1.2) 01/10/25 05:15 APTT 33.3 SECONDS (23.9-36.7) 01/10/25 05:15 Sodium 138 mmol/L (136-145) 01/13/25 05:04 Potassium 3.6 mmol/L (3.5-5.1) 01/13/25 05:04 Chloride 101 mmol/L (98-107) 01/13/25 05:04 Carbon Dioxide 26 mmol/L (22-29) 01/13/25 05:04 Anion Gap 14.6 (5-19) 01/13/25 05:04 BUN 9 mg/dL (8-23) 01/13/25 05:04 Creatinine 0.8 mg/dL (0.7-1.2) 01/13/25 05:04 GFR Calculation Not Reportable 01/13/25 05:04 Glucose 80 mg/dL (65-115) 01/13/25 05:04 POC Glucose 87 mg/dL (70-110) 01/10/25 23:51 Estimat Average Glucose 100 01/11/25 05:48 Hemoglobin A1c 5.1 % (4.0-6.0) 01/11/25 05:48 Calculated Osmolality 284 mOsm/kg (285-295) L 01/13/25 05:04 Calcium 8.2 mg/dL (8.5-10.5) L 01/13/25 05:04 Phosphorus 2.1 mg/dL (2.5-4.5) L 01/13/25 05:04 Magnesium 1.7 mg/dL (1.7-2.3) 01/13/25 05:04 Iron 40 ug/dL (59-158) L 01/12/25 06:42 TIBC 152 mcg/dl 01/12/25 06:42 % Saturation 26.3 % (20-50) 01/12/25 06:42 Unsat Iron Binding 112 ug/dL (112-347) 01/12/25 06:42 Total Bilirubin 0.7 mg/dL (0.15-1.2) 01/13/25 05:04 AST 26 U/L (0-40) 01/13/25 05:04 ALT 13 U/L (0-41) 01/13/25 05:04 Alkaline Phosphatase 105 U/L (40-130) 01/13/25 05:04 C-Reactive Protein 6.5 mg/L (0.0-4.9) H 01/10/25 05:15 Total Protein 6.2 g/dL (6.6-8.7) L 01/13/25 05:04 Albumin 3.0 g/dL (3.5-5.2) L 01/13/25 05:04 Globulin 3.2 g/dL (1.3-4.6) 01/13/25 05:04 Triglycerides 67 mg/dL (0-150) 01/11/25 05:48 Cholesterol 115 mg/dL (0-200) 01/11/25 05:48 LDL Cholesterol, Calc 63 mg/dL (50-129) 01/11/25 05:48 HDL Cholesterol 39 mg/dL (60-100) L 01/11/25 05:48 LDL/HDL Ratio 1.62 RATIO (0.00-3.22) 01/11/25 05:48 Cholesterol/HDL Ratio 2.95 mg/dL (1.0-5.00) 01/11/25 05:48 Vitamin B12 753 pg/mL (232-1245) 01/12/25 06:42 Folate 4.8 ng/mL (4.5-32.2) 01/13/25 05:04 Procalcitonin 0.04 ng/mL (0-0.5) 01/10/25 05:15 TSH 0.25 uIU/mL (0.27-4.20) L 01/12/25 06:42 Free T4 1.38 ng/dL (0.82-1.77) 01/12/25 06:42 Free T3 1.9 PG/ML (2.0-4.4) L 01/12/25 06:42 Urine Color Yellow (Yellow) 01/10/25 05:30 Urine Appearance Clear (CLEAR) 01/10/25 05:30 Urine pH 7.5 (5-7) 01/10/25 05:30 Ur Specific [place] 1.030 (1.005-1.030) 01/10/25 05:30 Urine Protein Negative (Negative) 01/10/25 05:30 Urine Glucose (UA) Negative (Normal) 01/10/25 05:30 Urine Ketones Negative (Negative) 01/10/25 05:30 Urine Blood 2+ (Negative) A 01/10/25 05:30 Urine Nitrate Negative (Negative) 01/10/25 05:30 Urine Bilirubin Negative (Negative) 01/10/25 05:30 Urine Urobilinogen 1.0 mg/dL (Negative) 01/10/25 05:30 Ur Leukocyte Esterase Negative (Negative) 01/10/25 05:30 Urine RBC 21-50 /hpf (0-2) H 01/10/25 05:30 Urine WBC 0-5 /hpf (0-5) 01/10/25 05:30 Ur Squamous Epith Cells 0-5 /hpf (0-5) 01/10/25 05:30 Amorphous Sediment Not Reportable 01/10/25 05:30 Urine Bacteria None seen /hpf (NONE) 01/10/25 05:30 Hyaline Casts 0-4 /lpf H 01/10/25 05:30 Urine Opiates Screen Negative ng/mL (Negative) 01/10/25 05:30 Ur Barbiturates Screen Negative ng/mL (Negative) 01/10/25 05:30 Ur Phencyclidine Scrn Negative ng/mL (Negative) 01/10/25 05:30 Ur Amphetamines Screen Negative ng/mL (Negative) 01/10/25 05:30 U Benzodiazepines Scrn Negative ng/mL (Negative) 01/10/25 05:30 Urine Cocaine Screen Negative ng/mL (Negative) 01/10/25 05:30 U Marijuana (THC) Screen Negative ng/mL (Negative) 01/10/25 05:30 Influenza A (PCR) Negative (Negative) 01/10/25 15:20 Influenza Type B (PCR) Negative (Negative) 01/10/25 15:20 RSV (PCR) Negative (Negative) 01/10/25 15:20 SARS-CoV-2 (PCR) Negative (Negative) 01/10/25 15:20 Vitals Last Vital Signs Temp 98.0 F 01/13/25 07:13 Pulse 70 01/13/25 07:13 Resp 18 01/13/25 07:13 BP 172/90 01/13/25 07:13 Pulse Ox 95 01/13/25 07:13 O2 Del Method Room Air 01/13/25 07:13 O2 Flow Rate 2 01/12/25 20:00 Discharge Plan Discharge Patient Disposition: Home Health Service Condition: Stable Prescriptions: New lisinopril 20 mg Tablet 20 mg PO DAILY 30 Days Qty: 30 0RF clopidogrel 75 mg Tablet 75 mg PO DAILY Qty: 30 0RF levofloxacin 750 mg tablet 750 mg PO Q24H 5 Days Qty: 5 0RF amoxicillin-pot clavulanate 875-125 mg tablet 1 tab PO BID 5 Days Qty: 10 0RF Continued atorvastatin 40 mg tablet 40 mg PO BEDTIME Qty: 90 2RF ondansetron 4 mg tablet,disintegrating 4 mg PO Q8H PRN (Reason: nausea and vomiting) Qty: 30 0RF levothyroxine 25 mcg tablet See Rx Instructions .ROUTE .COMPLEX Qty: 30 0RF Dose Instruction: TAKE ONE TABLET BY MOUTH EVERY MORNING Rx Instructions: TAKE ONE TABLET BY MOUTH EVERY MORNING acetaminophen 500 mg Tablet 500 mg PO .UP TO BID aspirin 81 mg Tablet,Delayed Release (Dr/Ec) 81 mg PO DAILY Qty: 30 0RF cyanocobalamin (vitamin B-12) 1,000 mcg capsule 2,000 mcg PO QAM Qty: 60 0RF levetiracetam 1,000 mg tablet 1,000 mg PO BID hydrochlorothiazide 12.5 mg tablet 12.5 mg PO DAILY Discontinued lisinopril 5 mg tablet 5 mg PO DAILY Qty: 90 3RF Discharge Orders: Discharge Order (Routine); Ordered 01/13/25 Ordered By: Harlan Moore Referrals: All Cesar MD [Physician, Neurology] - 2 weeks Referral Note: We have notified your physician's clinic of the need for a follow-up appointment to be scheduled. If you have not heard from them within the next 2 business days, please call them directly. Isa Lopez FNP [Primary Care Provider, Nurse Practitioner] - 01/19/25 2:00 pm Referral Note: Discharge Diet: As Directed Discharge Activity: Resume usual activity and Increase activity as tolerated Patient Instructions: Lisinopril (By mouth), Clopidogrel (By mouth), Opioid Safety, Stroke Stoplight Activity Restrictions/Additional Instructions: Dysphagia level 5 diet?minced and moist. Dose of lisinopril has been increased to 20 mg daily. Please check your blood pressure daily at home maintain a blood pressure diary. Goal blood pressure is less than 140/90 mmHg. Follow-up with a primary care provider within next 2 weeks with the blood pressure diary for further adjustment of antihypertensives. Discharge Attestations Time Spent in Discharge Care*: greater than 30 min Specific Discharge Activities: educating patient, educating and/or supporting family/caregiver, discussing with pcp/other providers, discussing with case liner/social workers/dc planners, documenting/other paperwork and evaluating patient/reviewing data Status at Discharge: Cognitive status at discharge: mildly impaired cognition , Behavioral status at discharge: cooperative , Functional status at discharge: other assisted ambulation , Overall status at discharge: patient is back to baseline Quality Metrics Clinical Quality Measures [ No reported AMI, CVA or VTE this stay] Coding Level of Care Code 11970 Total time (in minutes) for Discharge: 60 Diagnoses Seizure R56.9 Cerebrovascular accident I63.89 CVA mechanism: other Hypothyroidism E03.9 Essential hypertension I10 Low vitamin B12 level R79.89
[2025-01-13] MEDS: lisinopril 20 mg Tablet PO (10:43)
[2025-01-13] MEDS: cefTRIAXone 1,000 mg SDV 1000 MG IVP (10:45)
[2025-01-13] MEDS: AZITHROMYCIN ADD-Vantage 500 MG in 0.9% NaCl ADD-Vantage 250 ML 250 MG IV (10:49)
[2025-01-13] MEDS: aspirin 81 mg EC Tablet PO (10:51)
[2025-01-13 11:14] VITALS: BP 183/76; PULSE 65; RESP 18; TEMP 36.7; O2SAT 95
== END 2025-01-13 12:25 | disposition home health service (06) | DRG 178 ==
LOC: ER 06:02 → MEDSURG 07:39
PROVIDERS: Family Medicine; Admitting Provider Internal Medicine; Emergency Provider Emergency Medicine; PCP Nurse Practitioner; Visit Provider Student in an Organized Health Care Education/Training Program
DX: J69.0 Pneumonitis due to inhalation of food and vomit (principal); G40.109 Localization-related (focal) (partial) symptomatic epilepsy and epileptic syndromes with simple partial seizures, not intractable, without status epilepticus; G93.40 Encephalopathy, unspecified; I69.951 Hemiplegia and hemiparesis following unspecified cerebrovascular disease affecting right dominant side; E03.9 Hypothyroidism, unspecified; I10 Essential (primary) hypertension; E78.5 Hyperlipidemia, unspecified; I65.02 Occlusion and stenosis of left vertebral artery; I65.23 Occlusion and stenosis of bilateral carotid arteries; Z66 Do not resuscitate; Z79.82 Long term (current) use of aspirin
CPT/HCPCS: 36415; 36416; 70450; 70496; 70498; 70551; 71045; 71250; 74176; 74230; 80053; 80061; 80306; 81001; 82607; 82746; 82962; 83036; 83540; 83550; 83735; 84100; 84145; 84439; 84443; 84481; 85025; 85610; 85651; 85730; 86140; 87040; 87086; 87637; 92610; 92611; 93005; 93306; 96372; 96374; 96375; 97161; 97165; 99285; J0360; J0456; J0696; J1650; J1953; J2405; J3475; J3480; J3490; J7050; J9999

== ENCOUNTER → 2025-07-21 14:29 | Outpatient (BNVA) | payer MEDICARE, SELFPAY | PROVIDERS: PCP Nurse Practitioner; Visit Provider Nurse Practitioner | DX: I10 Essential (primary) hypertension (principal); E03.9 Hypothyroidism, unspecified | CPT/HCPCS: 80053; 84443 ==